=== PATIENT | female | born 1965 | race Caucasian/White ===

== ENCOUNTER 2023-02-21 10:02 | Outpatient (RCR) | payer MEDICARE, MEDICAID, SELFPAY | END 2023-03-15 13:24 | disposition home or self-care (01) | LOC: PT 10:02 | PROVIDERS: PCP Nurse Practitioner Family | DX: M54.31 Sciatica, right side (principal); M25.561 Pain in right knee; M25.562 Pain in left knee; G89.29 Other chronic pain; M48.061 Spinal stenosis, lumbar region without neurogenic claudication; M16.11 Unilateral primary osteoarthritis, right hip | CPT/HCPCS: 97110; 97140; 97162 ==

== ENCOUNTER 2024-11-21 14:33 | Outpatient (OUT) | payer MEDICAID, MEDICARE, SELFPAY ==
[2024-11-21 14:57] LABS: Basophils Absolute Auto 0.1 10^3/uL (0.0-0.1); Basophils Percent Auto 0.6 % (0.2-2.0); Eosinophils Absolute Auto 0.3 10^3/uL (0.0-0.7); Eosinophils Percent Auto 3.3 % (0.9-7.0); Hematocrit 38.1 % (36.0-48.0); Hemoglobin 12.1 g/dL (12.0-16.0); Immature Granulocytes Abs Auto 0.01 10^3/uL (0.00-0.03); Immature Granulocytes Pct Auto 0.1 % (0.0-0.5); Lymphocytes Percent Auto 33.5 % (20.5-60.0); Mean Corpuscular HGB Conc 31.8 g/dL (29.9-35.2); Mean Corpuscular Hemoglobin 27.7 pg (26.7-34.0); Mean Corpuscular Volume 87.2 fL (81.0-99.0); Mean Platelet Volume 9.2 fL (9.5-13.5); Monocytes Absolute Auto 0.7 10^3/uL (0.3-0.8); Monocytes Percent Auto 8.2 % (1.7-12.0); Neutrophils Absolute Auto 4.9 10^3/uL (1.4-6.5); Neutrophils Percent Auto 54.3 % (43.0-75.0); Platelet Count 272 10^3/uL (150-450); Red Blood Count 4.37 10^6/uL (4.20-5.40); Red Cell Distribution Width 14.4 % (11.0-15.0)
[2024-11-21 15:12] LABS: Estimated Average Glucose 151 mg/dL; Glycohemoglobin A1C 6.9 % (4.5-6.2)
[2024-11-21 15:36] LABS: Alanine Aminotransferase 19 U/L (14-59); Albumin Globulin Ratio 1.1; Albumin Level 3.9 g/dL (3.4-5.0); Alkaline Phosphatase 99 U/L (46-116); Anion Gap 11.4; Aspartate Amino Transferase 15 U/L (15-37); BUN Creatinine Ratio 12.5; Bilirubin Total 0.5 mg/dL (0.2-1.0); Calcium 9.3 mg/dL (8.5-10.1); Carbon Dioxide 29.8 mmol/L (21.0-32.0); Chloride 97 mmol/L (98-107); Estimated GFR (African America >60 (>=60 mL/min/1.73m^2); Estimated GFR (Non-African Ame >60 (>=60 mL/min/1.73m^2); Free T3 3.35 pg/mL (2.18-3.98); Globulin 3.4 g/dL; Glucose 97 mg/dL (74-106); Potassium 4.2 mmol/L (3.5-5.1); Sodium 134 mmol/L (136-145); Thyroid Stimulating Hormone 0.007 uIU/mL (0.358-3.740); Total Protein 7.3 g/dL (6.4-8.2)
[2024-11-22 08:09] LABS: Insulin 10.6 uIU/mL (2.6-24.9)
== END 2024-11-21 14:34 | disposition home or self-care (01) ==
PROVIDERS: PCP Nurse Practitioner Family; Visit Provider Nurse Practitioner Family
DX: Z00.00 Encounter for general adult medical examination without abnormal findings (principal); E78.5 Hyperlipidemia, unspecified; E11.9 Type 2 diabetes mellitus without complications; D64.9 Anemia, unspecified; E03.9 Hypothyroidism, unspecified; E55.9 Vitamin D deficiency, unspecified; Z79.899 Other long term (current) drug therapy
CPT/HCPCS: 36415; 80053; 80061; 82306; 83036; 83525; 83540; 84436; 84443; 84481; 85025

== ENCOUNTER 2025-01-29 11:26 | Outpatient (OUT) | payer MEDICARE, MEDICAID, SELFPAY ==
--- OUTSIDE RECORDS SUMMARY | 2013-09-15 16:00 | XMS_ITS | Encounter Summary ---
Author Organization [facility] Address [address] [place] [address] Care Team Providers Care Wind Field Manager Name Role Phone Marcelo Hinojosa MD Primary Care Provider [phone] Encounter Details Date Type Department Care Team (Late st Contact Info) Description 09/15/2013 3:00 PM EST Hospital Encounter [facility] Cardiac Rehab [address] [place] [id number] Sanya Byrnes MD [address] [phone] Marcelo Hinojosa MD [address] [place] [address] Social History Tobacco Use Types Packs/Day Years Used Date Smoking Tobacco: Every Day Cigarettes 0.3 33 Alcohol Use Standard Drinks/Week Comments No 0 (1 standard drink = 0.6 oz pur e alcohol) Comments Unknown Sex and Gender Information Value Date Recorded Sex Assigned at Not on file Legal Sex Female 12:23 PM EST Gender Identity Not on file Sexual Orientation Not on file documented as of this encounter Plan of Treatment Not on file documented as of this encounter Visit Diagnoses Not on filedocumented in this encounter Care Teams Wind Field Manager Relationship Specialty Start Date End Date Marcelo Hinojosa MD [address] [place] [address] PCP - General 09/10/13 documented as of this encounter
--- OUTSIDE RECORDS SUMMARY | 2013-10-15 15:00 | XMS_ITS | Encounter Summary ---
Author Organization [facility] Address [address] [place] [address] Care Team Providers Care Hammerer Helper Name Role Phone Marcelo Hinojosa MD Primary Care Provider [phone] Encounter Details Date Type Department Care Team (Late st Contact Info) Description 10/15/2013 3:00 PM EDT Hospital Encounter [facility] Cardiac Rehab [address] [place] [address] Sanya Byrnes MD [address] [phone] Marcelo Hinojosa MD [address] [place] [address] Social History Tobacco Use Types [...] on filedocumented in this encounter Care Teams Hammerer Helper Relationship Specialty Start Date End Date Marceol Hinojosa MD [address] [place] [address] PCP - General 09/10/13 documented as of this encounter
--- OUTSIDE RECORDS SUMMARY | 2017-08-30 11:00 | XMS_ITS | Continuity of Care Document ---
Author Organization [facility] Address [address] [place] [phone] Phone Care Team Providers Care Intermediate Project Manager Name Role Phone Hector Rojas DDS Unavailable Unavailable Allergies, Adverse Reactions, Alerts Substance Reaction Status Criticality Sulfa (Sulfonamide Antibiotics) Hives/Skin Rash Active No Information Medications Medication Instructions Dosage Effective Dates (start - stop) Status Comments lisinopril 5 mg tablet take 1 tablet by oral route every day 5 MG - Active Lopressor HCT 50 mg-25 mg tablet take 1 tablet by oral route every day - Active aspirin 325 mg tablet take 1 tablet by oral route every day 325 MG - Active Lipitor 80 mg tablet take 1 tablet by or al route every day 80 MG - Active Effexor XR 150 mg capsule,extended release take 1 capsule by oral route every day 150 MG - Active Effexor XR 75 mg capsule,extended release take 1 capsule by oral route every day with food 75 MG - Active Synthroid 112 mcg tablet take 1 tablet by oral route every day 112 MCG - Active Zantac 150 mg tablet take 1 tablet by or al route 2 times every day - Active Roxboro 10 mg-325 mg tablet take 1 tablet by oral route every 4 - 6 hours as needed for pain - Active tramadol 50 mg tablet take 1 tablet by oral route every 6 hours as needed 50 MG - Active gabapentin 100 mg capsule take 3 capsule by oral route every day at bedtime 300 MG - Active Procedures Procedure Date Oral Hygiene Instruction Limited Oral Eval Advance Directives Directive Yes / No Effective Date File Name No Information Encounters Encounter Description Practice Location Reason(s) For Visit Diagnoses Date Provider Providers Copied on Encounter [facility], [address] [place] [address], [id number], tel:[phone] Dental Clinic dental Emergency (chief complaint)d ental Emergency (chief complaint) Encounter for screening for dental disorder Crystal Young. [address], [place], [id number], . tel:[phone] Family History Family Member Type Diagnosis Age At Onset Mother Problem (finding) malignant neoplasm of p ancreas Father Problem (finding) Payers Payer name Insurance type Covered constitution party ID Janel burnham(s) D [employer] [id number] D Medicaid Wrap - [employer] [facility] [id number] Social History Type Description Quantity Date Captured Comments Alcohol Use Details Unknown Caffeine Use Details Unknown Tobacco Use Status Moderate cigarette smoker (10-19 cigs/day) Smoking Status Heavy tobacco smoker Smoking Tobacco Use Details Cigarette: Age Started: 14 Cigarette: 10 Cigarettes per day Sex Female Sexual Orientation Straight or heterosexual Gender Identity Female Vital Signs Date / Time: Height Weight BMI Pulse Rate Blood Pressure Temperature Respiratory Rate Body Surface Area Head Circumference Head Circ. Percentile Wt./Romario. Percentile BMI percentile Pulse Ox Inhaled Ox 3:48 PM 70 /min 126/78 mm[Hg] Chief Complaint And Reason For Visit From encounter dated '08/30/2017 15:00'. dental Emergency (chief complaint) dental Emergency (chief complaint). Description: dental emergency, trim bone Reason For Referral Reason For Referral No Information Plan Of Treatment Date Type Action Status Goal Tobacco cessation counseling completed History Of Present Illness Encounter Date Complaint History Of Prese nt Illness dental Emergency dental emergenc y, trim bone dental Emergency Functional Status Date Functional Assessmen t No Information Instructions Date Instruction Additional Infor mation No Information Assessments Type Assessment Date assessment Encounter for screening for dent al disorder Patient Care Teams Name Effective Dates (start - stop) Status Members No Information
--- OUTSIDE RECORDS SUMMARY | 2024-11-28 11:53 | XMS_ITS ---
Author Organization [facility] [place] Address [address] [place] [address] Care Team Providers Care Denture Waxer Name Role Phone Kylie Dubose Primary Care Provider [phone] REASON FOR VISIT Thyroid Dose Medications Medication SIG (Take, Route, Frequency, Duration) Notes Start Date End Date Status Liothyronine Sodium 5 MCG 1 tablet on an empty stomach Once a day for 90 days Active Encounters Encounter Location Date Provider Diagnosis [facility] [address] [place] [address] 11/28/2024 Kylie Dubose Hypothyroidism, unspecified E03.9 Assessments Encounter Date Diagnosis (ICD Code) Assessment Notes Treatment Notes Treatment Clinical Notes Section Notes 11/28/2024 Hypothyroidism, unspecified (ICD-10 - E03.9) Plan Of Treatment Medication Medication Name Sig Start Date Stop Date Notes Liothyronine Sodium 5 MCG 1 tablet on an empty stomach Once a day for 90 days Pending Test Test Name Order Date THYROID PANEL (T4/TSH/FREE T3) Progress Notes * Lorri WILKINSON ADOB: 3 (59 yo F)Acc No.[id number]:11/28/2024 Patient: Pao BLAKENATALIELorri :1965 A ge:59 Y S ex:Female Address:[address] [place] [phone] * Refills Refill Liothyronine Sodium Tablet, 5 MCG, 90 Tablet, 1 tablet on an empty stomach, Once a day, 90 days, Refills=3 Subjective: * Chief Complaints: * T hyroid Dose * Medical History: * Surgical History: * Hospitalization/Major Diagno stic Procedure: * Medications: Objective: * Vitals: * Physical Examination: Assessment: * Assessment: 1. H ypothyroidism, unspecified - E03.9 (Primary) Plan: * Treatment: 2. O thers Refill Liothyronine Sodium Tablet, 5 MCG, 1 tablet on an empty stomach, Once a day, 90 days, 90 Tablet, Refills 3. * Procedure Codes: * true * Date: Generated for Vaishali richmond/Anahi/eTmieshasmitting on: 0 01/29/2025 11:32 AM EDT
--- OUTSIDE RECORDS SUMMARY | 2025-01-09 03:49 | XMS_ITS ---
Author Organization [facility] [place] Address [address] [place] [address] Care Team Providers Care Parachute Marker Name Role Phone Kylie Dubose Primary Care Provider REASON FOR VISIT refill Medications Medication SIG (Take, Route, Frequency, Duration) Notes Start Date End Date Status Ozempic (0.25 or 0.5 MG/DOSE) 2 MG/3ML DIAL 0.25 MG AND INJECT UNDER THE SKIN WEEKLY for 28 Active Encounters Encounter Location Date Provider Diagnosis [address] [address] 01/09/2025 Kylie Dubose Diabetes mellitus E11.9 Assessments Encounter Date Diagnosis (ICD Code) Assessment Notes Treatment Notes Treatment Clinical Notes Section Notes 01/09/2025 Diabetes mellitus (ICD-10 - E11.9) Plan Of Treatment Medication Medication Name Sig Start Date Stop Date Notes Ozempic (0.25 or 0.5 MG/DOSE ) 2 MG/3ML DIAL 0.25 MG AND INJECT UNDER THE SKIN WEEKLY for 28 Progress Notes * Lorri WILKINSON ADOB: [birth year] (59 yo F)Acc No.[id number]:01/09/2025 Patient: Pao FLORES Lorri Corral :1965 A ge:59 Y S ex:Female Address:[address] [place] [phone] * Refills Refill Ozempic (0.25 or 0.5 MG/DOSE) Solution Pen-injector, 2 MG/3ML, 3 Milliliter, DIAL 0.25 MG AND INJECT UNDER THE SKIN WEEKLY, 28, Refills=5 * true * Date: Generated for Vaishali richmond/Anahi/Octavio on: 0 01/29/2025 11:32 AM EDT
--- OUTSIDE RECORDS SUMMARY | 2025-01-13 07:20 | XMS_ITS ---
Author Organization [facility] [place] Address [address] [place] [address] Care Team Providers Care Treadle Cut Off Saw Operator Name Role Phone Kylie Dubose Primary Care Provider REASON FOR VISIT Ozempic Medications Medication SIG (Take, Route, Frequency, Duration) Notes Start Date End Date Status Ozempic (0.25 or 0.5 MG/DOSE) 2 MG/3ML DIAL 0.5 MG AND INJECT UNDER THE SKIN WEEKLY for 28 days call for next dose Active Encounters Encounter Location Date Provider Diagnosis [address] [address] 01/13/2025 Kylie Dubose Diabetes mellitus E11.9 Assessments Encounter Date Diagnosis (ICD Code) Assessment Notes Treatment Notes Treatment Clinical Notes Section Notes 01/13/2025 Diabetes mellitus (ICD-10 - E11.9) Plan Of Treatment Medication Medication Name Sig Start Date Stop Date Notes Ozempic (0.25 or 0.5 MG/DOSE) 2 MG/3ML DIAL 0.5 MG AND INJECT UNDER THE SKIN WEEKLY for 28 days call for next dose Progress Notes * Lorri WILKINSON ADOB: [birth year] (59 yo F)Acc No.[id number]:01/13/2025 Patient: Pao FLORES Lorri Corral :1965 A ge:59 Y S ex:Female Address:[address] [place] [id number] * Refills Refill Ozempic (0.25 or 0.5 MG/DOSE) Solution Pen-injector, 2 MG/3ML, 1, DIAL 0.5 MG AND INJECT UNDER THE SKIN WEEKLY, 28 days, Refills=1 Subjective: * Chief Complaints: * O zempic * Medical History: * Surgical History: * Hospitalization/Major Diagno stic Procedure: * Medications: Objective: * Vitals: * Physical Examination: Assessment: * Assessment: 1. D iabetes mellitus - E11.9 Plan: * Treatment: * Procedure Codes: * true * Date: Generated for Vaishali richmond/Anahi/Octavio on: 0 01/29/2025 11:32 AM EDT
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
--- OUTSIDE RECORDS SUMMARY | 2025-01-29 11:32 | XMS_ITS | Patient Health Record ---
Author Organization The [facility] [place] Address [address] [place] [address] Care Team Providers Care Cafeteria Monitor Name Role Phone GracyMarcieKylie Primary Care Provider Allergies Allergen (clinical drug ingredient) Drug/Non Drug Allergy documented on EMR Reaction Allergy Type Onset Date Status Non-steroidal anti-inflammatory agent (FN) NSAIDs nausea and vomiting Drug Allergy Active Results Component Value Reference Range Notes FREE T3 Reviewed date:11/24/2024 11:32:31 AM Interpretation: Performing Lab: Notes/Report: [facility] , Free T3 3.35 2.18-3.98 pg/mL Performing Lab: see note - [facility] LB INSULIN Reviewed date:11/24/2024 11:32:31 AM Interpretation: Performing Lab: Notes/Report: [facility] , Insulin 10.6 2.6-24.9 uIU/mL Performed at: - [facility] Freight Separator: Kapil Holm PhD, Phone: [phone] [address] [place], [place] [id number] Performing Lab: see note LC - [facility] LB IRON Reviewed date:11/24/2024 11:32:31 AM Interpretation: Performing Lab: Notes/Report: [facility] , Iron 56.0 50.0-170.0 ug/dL Performing Lab: see note - [facility] LB PROF 14(COMP METB) Reviewed date:11/24/2024 11:32:31 AM Interpretation: Performing Lab: Notes/Report: [facility] , Sodium 134 136-145 mmol/L Potassium 4.2 3.5-5.1 mmol/L Chloride 97 98-107 mmol/L Carbon Dioxide 29.8 21.0-32.0 mmol/L Anion Gap 11.4 Glucose 97 74-106 mg/dL Blood Urea Nitrogen 8.0 7.0-18.0 mg/dL Creatinine 0.64 0.55-1.02 mg/dL Estimated GFR ( Althea >60 >=60 mL/mi n/1.73m 2 Estimated GFR (Non- Renetta >60 >=60 mL/mi n/1.73m 2 BUN Creatinine Ratio 12.5 Calcium 9.3 8.5-10.1 mg/dL Bilirubin Total 0.5 0.2-1.0 mg/dL Aspartate Amino Transferase 15 15-37 U/L Alanine Aminotransferase 19 14-59 U/L Alkaline Phosphatase 99 46-116 U/L Total Protein 7.3 6.4-8.2 g/dL Albumin Level 3.9 3.4-5.0 g/dL Globulin 3.4 Albumin Globulin Ratio 1.1 Performing Lab: see note ML - [facility] LB T4 Reviewed date:11/24/2024 11:32:31 AM Interpretation: Performing Lab: Notes/Report: [facility] , T4 Thyroxine 9.00 4.80-13.90 ug/dL Performing Lab: see note ML - [facility] LB TSH Reviewed date:11/24/2024 11:32:31 AM Interpretation: Performing Lab: Notes/Report: [facility] , Thyroid Stimulating Hormone 0.007 0.358-3.740 u IU/mL Performing Lab: see note ML - [facility] LB VITAMIN D 25 [place] Reviewed date:11/24/2024 11:32:31 AM Interpretation: Performing Lab: Notes/Report: [facility] , Vitamin D 38.1 20-<30 ng/mL Vit D insufficient >100 ng/mL Potential Toxicity <20 ng/mL Vit D deficient 30-100 ng/mL Vit D sufficient Performing Lab: see note ML - [facility] LB GLYCOHEMOGLOBIN A1C Reviewed date:11/24/2024 11:32:31 AM Interpretation: Performing Lab: Notes/Report: [facility] , Glycohemoglobin A1C 6.9 4.5-6.2 % ACTION SUGGESTED > 7.0 ADA RECOMMENDED LIMIT 4.0 - 6.0 ADA THERAPEUTIC TARGET < 7.0 Estimated Average Glucose 151 Performing Lab: see note ML - [facility] LB CBC AUTO DIFF Reviewed date:11/24/2024 11:32:31 AM Interpretation: Performing Lab: Notes/Report: [facility] , White Blood Count 9.0 4.0-11.0 10 3/uL Red Blood Count 4.37 4.20-5.40 10 6/uL Hemoglobin 12.1 12.0-16.0 g/dL Hematocrit 38.1 36.0-48.0 % Mean Corpuscular Volume 87.2 81.0-99.0 fL Mean Corpuscular Hemoglobin 27.7 26.7-34.0 pg Mean Corpuscular HGB Conc 31.8 29.9-35.2 g/dL Red Cell Distribution Width 14.4 11.0-15.0 % Platelet Count 272 150-450 10 3/uL Mean Platelet Volume 9.2 9.5-13.5 fL Neutrophils Percent Auto 54.3 43.0-75.0 % Lymphocytes Percent Auto 33.5 20.5-60.0 % Monocytes Percent Auto 8.2 1.7-12.0 % Eosinophils Percent Auto 3.3 0.9-7.0 % Basophils Percent Auto 0.6 0.2-2.0 % Immature Granulocytes Pct Auto 0.1 0.0-0.5 % Neutrophils Absolute Auto 4.9 1.4-6.5 10 3/uL Lymphocytes Absolute Auto 3.0 1.2-3.8 10 3/uL Monocytes Absolute Auto 0.7 0.3-0.8 10 3/uL Eosinophils Absolute Auto 0.3 0.0-0.7 10 3/uL Basophils Absolute Auto 0.1 0.0-0.1 10 3/uL Immature Granulocytes Abs Auto 0.01 0.00-0.03 10 3/uL Performing Lab: see note ML - [facility] LB Reason For Referral No Information Medications Medication SIG (Take, Route, Frequency, Duration) Notes Start Date End Date Status Fluconazole 150 MG 1 tablet Orally once for 1 days 10/01/2023 Not-Taking DULoxetine HCl 60 MG Oral for 60 Days Active Losartan Potassium 25 MG 1 tablet Orally Once a day 11/25/2024 Active valACYclovir HCl 1 GM 1 tablet Orally TI D for 7 days 09/25/2023 Not-Taking Tylenol Arthritis Pain Active Blood Glucose Meter -- Use to test blood sugar Dx: Diabetes Type II (E11.9) daily for 1 days 04/09/2023 Active Metoprolol Tartrate 25 MG take 1 tablet by mouth twice a day Oral for 90 Days Active Nicoderm CQ 21 MG/24HR 1 patch to skin Transdermal Once a day for 30 days 08/31/2023 Active Atorvastatin Calcium 80 MG take 1 tablet by mouth at bedtime Oral for 90 Days Active metFORMIN HCl 1000 MG TAKE 1 TABLET BY MOUTH 2 TIMES A DAY WITH A MEAL for 90 Active busPIRone HCl 10 MG TAKE 2 TABLET BY MOUTH 2 TIMES A DAY for 30 days Active Mupirocin 2 % 1 application Externally Twice a day for 5 days 11/25/2024 Active HYDROcodone-Acetaminop hen 10-325 MG 1 tablet as needed Orally every 8 hrs 08/31/2023 Active Gabapentin 300 MG 1 capsule Orally every 8 hours for 30 days 08/31/2023 Active RA Aspirin EC 325 MG take 1 tablet by mouth once daily for 30 Active Omeprazole 40 MG take 1 capsule by mouth once daily 30 for 30 days Active Levothyroxine Sodium 200 MCG TAKE 1 TABLET BY MOUTH EVERY MORNING ON AN EMPTY STOMACH for 90 days Active traMADol HCl 50 MG 1 tablet as needed Orally Once a day 08/31/2023 Active Ozempic (0.25 or 0.5 MG/DOSE) 2 MG/3ML DIAL 0.5 MG AND INJECT UNDER THE SKIN WEEKLY for 28 days call for next dose Active Lancets 30G - Use to test blood sugar Dx: Diabetes Type II (E11.9) daily for 90 days 04/09/2023 Active Test Strips - Use with meter to test blood sugar Dx: Diabetes Type II (E11.9) daily for 90 days 04/09/2023 Active Liothyronine Sodium 5 MCG 1 tablet on an empty stomach Once a day for 90 days Active Sertraline HCl 50 MG TAKE 1 TABLET BY MOUTH DAILY for 90 Active Social History Tobacco Use: Social History Observation Description Date Details (start date - stop date) Current Smoker 07/23/1978 - NA Tobacco Use/Smoking Question Answer Notes Patient is a current smoker When did you start smoking? 07/23/1978 How often do you smoke cigarettes? some days, bu t not every day How many cigarettes a day do you smoke? 5 or les s How soon after you wake up d o you smoke your first cigarette? after 60 minutes Are you interested in quitting? Ready to quit Alcohol Screen (Audit-C) Question Answer Notes Did you have a drink contain ing alcohol in the past year? Yes How often did you have 6 or more drinks on one occasion in the past year? Never (0 point) How many drinks did you have on a typical day when you were drinking in the past year? 1 or 2 drinks (0 point) How often did you have a dri nk containing alcohol in the past year? Less than monthly (1 point) Points 1 Interpretation Negative Problems Problem Type SNOMED Code ICD Code Onset Dates Problem Status W/U Status Risk Notes Problem [id number] Hypothyroidism, unspecified (E03.9) Active confirmed Problem Anxiety (89877179) Anxiety (F41.9) Active confirmed Problem Smoker (F17.200) Active confirmed Problem Diabetes mellitus (68946416) Diabetes mellitus (E11.9) Active confirmed Vital Signs Blood pressure diastolic 78 mm Hg 11/25/2024 Height 66.5 in 11/25/2024 Blood pressure systolic 142 mm Hg 11/25/2024 Weight 188.8 lbs 11/25/2024 BMI 30.01 kg/m2 11/25/2024 Encounters Encounter Location Date Provider Diagnosis [address] [address] 10/27/2024 Kylie Dubose Diabetes mellitus E11.9 and Wellness examination Z00.00 [facility] [address] [place] [address] 10/29/2024 Kylie Dubose [facility] [address] [place] [address] 11/28/2024 Kylie Dubose Hypothyroidism, unspecified E03.9 [facility] [address] [place] [address] 01/09/2025 Kylie Dubose Diabetes mellitus E11.9 [facility] [address] [place] [address] 01/13/2025 Kylie Dubose Diabetes mellitus E11.[address] [address] 03/11/2024 Kylie Dubose [facility] [address] [facility] [place] [address] 03/21/2024 Kylie Dubose [facility] [address] [facility] [place] [address] 07/07/2024 Kylie Dubose [facility] [address] [facility] [place] [address] 09/25/2024 Kylie Gracy [facility] [address] [facility] [place] [address] 10/01/2024 Kylie Gracy [facility] [address] [facility] [place] [address] 10/27/2024 Kylie Gracy [facility] [address] [facility] [place] [address] 03/05/2024 Kylie Dubose [facility] [address] [facility] [place] [address] 11/25/2024 Kylie Dubose Hypothyroidism, unspecified E03.9 ; Diabetes mellitus E11.9 ; Anxiety F41.9 ; Smoker F17.200 ; Folliculitis L73.9 and Wellness examination Z00.00 Assessments Encounter Date Diagnosis (ICD Code) Assessment Notes Treatment Notes Treatment Clinical Notes Section Notes 10/27/2024 Diabetes mellitus (ICD-10 - E11.9) 11/25/2024 Hypothyroidism, unspecified (ICD-10 - E03.9) discuss medication doses with Dr Vahid jurado 11/25/2024 Diabetes mellitus (ICD-10 - E11.9) A1c 6.9 trial of Ozempic Patient educated on Diabetic diet... Reviewed Hypoglycemia / Hyperglycemia action plan: Instructed to call office if blood sugar above 350 or below 65 consecutively. Reviewed with patient the joint terminal attack controller effects of Diabetes Mellitus on the body and organs. Instructed patient to check feet daily, wear socks daily, wear proper fitting shoes, lotion feet at night with no lotion between toes, powder between toes. Follow-up with podiatry Q6M and PRN. No toenail clipping except by Podiatry. Please bring glucase meter and record to each appointment, Please feel free to call if you have questions or concerns about management or condition. Please call 1 week before medications are depleted for refills. If you are instructed to be fasting for procedure or testing, please call for dosing instructions. 11/28/2024 Hypothyroidism, unspecified (ICD-10 - E03.9) 01/09/2025 Diabetes mellitus (ICD-10 - E11.9) 01/13/2025 Diabetes mellitus (ICD-10 - E11.9) 11/25/2024 Anxiety (ICD-10 - F41.9) 10/27/2024 Wellness examination (ICD-10 - Z00.00) 11/25/2024 Smoker (ICD-10 - F17.200) 11/25/2024 Folliculitis (ICD-10 - L73.9) trial of mupirocin call office if worsening, can try oral abx derm referral sheet given if needed 11/25/2024 Wellness examination (ICD-10 - Z00.00) ROS done exam done encouraged mammogram and ct lungs labs reviewed cologuard ordered Plan Of Treatment Pending Test Test Name Order Date CMP (COMPLETE METABOLIC PANEL) 3 CMP (COMPLETE METABOLIC PANEL) 3 CMP (COMPLETE METABOLIC PANEL) 4 HEMOGLOBIN A1C (GLYCO) 11/30/2023 HEMOGLOBIN A1C (GLYCO) 10/27/2024 HEMOGLOBIN A1C (GLYCO) 12/04/2022 HEMOGLOBIN A1C (GLYCO) 11/07/2022 IRON, TOTAL 11/07/2022 IRON, TOTAL 12/04/2022 IRON, TOTAL 10/27/2024 IRON, TOTAL 11/30/2023 LIPID PANEL (CHOL/TRIG/HDL/LDL) 11/30/19 24 LIPID PANEL (CHOL/TRIG/HDL/LDL) 10/28/19 25 LIPID PANEL (CHOL/TRIG/HDL/LDL) 12/05/19 23 LIPID PANEL (CHOL/TRIG/HDL/LDL) 11/08/19 23 CBC WITH DIFF 11/07/2022 CBC WITH DIFF 12/04/2022 CBC WITH DIFF 11/30/2023 VITAMIN D, 25 LEVEL (TOTAL) 11/30/2023 VITAMIN D, 25 LEVEL (TOTAL) 10/27/2024 VITAMIN D, 25 LEVEL (TOTAL) 12/04/2022 Insulin Level 12/04/2022 Insulin Level 11/07/2022 Insulin Level 10/27/2024 Insulin Level 11/30/2023 STOOL OCCULT BLOOD 11/30/2023 STOOL OCCULT BLOOD 11/07/2022 STOOL OCCULT BLOOD 12/04/2022 THYROID PANEL (T4/TSH/FREE T3) 3 THYROID PANEL (T4/TSH/FREE T3) 3 THYROID PANEL (T4/TSH/FREE T3) 4 THYROID PANEL (T4/TSH/FREE T3) 5 THYROID PANEL (T4/TSH/FREE T3) 5 CT LUNG CANCER SCREENING 08/31/2023 CMP (COMP MET JARA) w/eGFR CKD-EPI 2024 CBC WITH DIFF 10/27/2024 Insurance Providers Payer Name Payer Address Payer Phone Subscriber Number Group Number Insured Name Patient Relationship to Insured Coverage Start Date Coverage End Date [facility] [employer]IC[employer] [address] [place] [address] [id number] Lorri Wilkinson Self - patient is the insured MEDICAID [place] [address] [facility] [address] [place], [place] [id number] Lorri Wilkinson Self - patient is the insured 3 Medical (General) History Medical History History ICD Code Diabetes mellitus E11.9 Anxiety F41.9 Bipolar disorder F31.9 Atherosclerosis of coronary artery I25.1 0 Depressed F32.9 Acid reflux K21.9 Dyslipidemia E78.5 Hypothyroid E03.9 Irritable bowel K58.9 Acute CA I21.3 Idiopathic neuropathy G60.9 Shingles B02.9 Squamous cell carcinoma, 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
--- OUTSIDE RECORDS SUMMARY | 2025-01-29 11:32 | XMS_ITS | Clinical Summary ---
Author Organization [facility] Address [address] [place] [address] Care Team Providers Care Chassis Mechanic Name Role Phone Marcelo Hinojosa MD Primary Care Provider [phone] Allergies Active Allergy Reactions Criticality Noted Date Comments Sulfa Antibiotics Hives 09/10/2013 Medications venlafaxine (EFFEXOR-XR) 150 MG XR capsule Take 150 mg by mouth daily. Active levothyroxine (SYNTHROID) 200 MCG tablet Take 250 mcg by mouth Daily. Active aspirin 81 MG tablet Take 81 mg by mouth daily. Active clopidogrel (PLAVIX) 75 MG tablet Take 75 mg by mouth daily. Active metoprolol (LOPRESSOR) 25 MG tablet Take 25 mg by mouth 2 times daily. Active lisinopril (PRINIVIL;ZESTRI L) 5 MG tablet Take 5 mg by mouth daily. Active atorvastatin (LIPITOR) 80 MG tablet Take 80 mg by mouth daily. Active ranitidine (ZANTAC) 150 MG tablet Take 150 mg by mouth 2 times daily. Active sucralfate (CARAFATE) 1 GM tablet Take 1 g by mouth 4 times daily. Active baclofen (LIORESAL) 10 MG tablet Take 10 mg by mouth 3 times daily. Active HYDROcodone-acet aminophen (VICODIN ES) 7.5-750 MG per tablet Take 1 tablet by mouth every 6 hours as needed for Pain. Active Family History Medical History Relation Name Comments Heart Attack Brother Relation Name Status Comments Brother Father Mother Social History Tobacco Use Types Packs/Day Years Used Date Smoking Tobacco: Every Day Cigarettes 0.3 33 Alcohol Use Standard Drinks/Week Comments No 0 (1 standard drink = 0.6 oz pur e alcohol) Comments Unknown Sex and Gender Information Value Date Recorded Sex Assigned at Not on file Legal Sex Female 12:23 PM EST Gender Identity Not on file Sexual Orientation Not on file Last Filed Vital Signs Vital Sign Reading Time Taken Comments Blood Pressure 100/60 09/10/2013 2:08 PM EST Pulse 72 09/10/2013 2:08 PM EST strong and regular Temperature - - Respiratory Rate 16 09/10/2013 2:08 PM EST clear Oxygen Saturation - - Inhaled Oxygen Concentration - - Weight 92.5 kg (204 lb) 09/10/2013 1:51 PM EST Height 167.6 cm (5' 6 ) 09/10/2013 1:51 PM EST Body Mass Index 32.93 09/10/2013 1:51 PM EST Plan of Treatment Not on file Care Teams Chassis Mechanic Relationship Specialty Start Date End Date Marcelo Hinojosa MD [address] [place] [address] PCP - General 09/10/13
--- OUTSIDE RECORDS SUMMARY | 2025-01-29 11:33 | XMS_ITS | Encounter Summary ---
Author Organization [employer] Address [id number] [address] [place] [address] Care Team Providers Care Supervisor Metal Fabricating Name Role Phone Kylie Dubose APRN-CAKE KNOCKER Primary Care Provider Reason for Visit * Reason Comments Med Refill Encounter Details Date Type Department Care Team (Late st Contact Info) Description 12/28/2022 Refill [facility] [address] [place] [address] Ly Ngo, PA-C [address] [facility] [address] [place] [address] Post zoster neuralgia Social History Tobacco Use Types Packs/Day Years Used Date Smoking Tobacco: Every Day Smokeless Tobacco: Never Alcohol Use Standard Drinks/Week Comments Not Currently 0 (1 standard drink = 0.6 oz pur e alcohol) PHQ-2 Answer Date Recorded Total Score 0 08/27/2019 Childcare Answer Date Recorded Childcare Unknown 01/01/2019 Employment Answer Date Recorded Employment Unknown 01/01/2019 Purpose - Life Answer Date Recorded Purpose and direction in life Unknown Comments Unknown Sex and Gender Information Value Date Recorded Sex Assigned at Not on file Legal Sex Female 11:27 AM EDT Gender Identity Not on file Sexual Orientation Not on file documented as of this encounter Plan of Treatment Not on file documented as of this encounter Visit Diagnoses Diagnosis 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
--- OUTSIDE RECORDS SUMMARY | 2025-01-29 11:33 | XMS_ITS | Encounter Summary ---
Author Organization [employer] Address [id number] [address] [place] [address] Care Team Providers Care District Operations Manager Name Role Phone Kylie Dubose APRN-MEDICAL CARE ADMINISTRATOR Primary Care Provider Reason for Visit * Reason Comments Med Refill Encounter Details Date Type Department Care Team (Late st Contact Info) Description 11/09/2022 Refill [facility] [address] [place] [address] Ly Ngo, PA-C [address] [facility] [address] [place] [address] Post zoster neuralgia Social History Tobacco Use [...] documented as of this encounter Care Teams District Operations Manager Relationship Specialty Start Date End Date Kylie Dubose, BENCH BORING MACHINE OPERATOR-MEDICAL CARE ADMINISTRATOR [address] [place] [address] PCP - General Family Medicine 08/27/19 documented as of this encounter
--- OUTSIDE RECORDS SUMMARY | 2025-01-29 11:33 | XMS_ITS | Clinical Summary ---
Author Organization [facility] Address [address] [place] [address] Care Team Providers Care Solidworks Drafter Name Role Phone Unavailable Primary Care Provider Unavailabl e Social History Tobacco Use Types Packs/Day Years Used Date Smoking Tobacco: Never Assessed Comments Unknown Sex and Gender Information Value Date Recorded Sex Assigned at Not on file Legal Sex Female 6:38 PM EDT Gender Identity Not on file Sexual Orientation Not on file Last Filed Vital Signs Vital Sign Reading Time Taken Comments Blood Pressure 138/76 07/30/2019 12:00 PM EST Pulse - - Temperature - - Respiratory Rate - - Oxygen Saturation - - Inhaled Oxygen Concentration - - Weight 82.1 kg (181 lb) 07/30/2019 12:00 PM EST Height 170.2 cm (5' 7 ) 07/30/2019 12:00 PM EST Body Mass Index 28.35 07/30/2019 12:00 PM EST Plan of Treatment Not on file
--- OUTSIDE RECORDS SUMMARY | 2025-01-29 11:33 | XMS_ITS | Clinical Summary ---
Author Organization [employer] [facility] Address [id number] [address] [place] [address] Care Team Providers Care Civil Engineering Draftsperson Name Role Phone Kylie Dubose HAND HEEL SEAT FITTER-[employer] AND HUMANITIES CHAIR Primary Care Provider Allergies Active Allergy Reactions Criticality Noted Date Comments Celecoxib 08/27/2019 HEART ATTACK Folic Acid 08/27/2019 Deplin; Blood sugar increased Sulfa (Sulfonamide Antibiotics) Hives 09/10/2013 Medications acetaminophen (TYLENOL) 500 mg tablet Take 1 tablet by mouth. Active aspirin 325 mg tablet Take 325 mg by mouth. 5 Active cyclobenzaprine (FLEXERIL) 10 mg tablet Take 10 mg by mouth. 0 Active diclofenac sodium (VOLTAREN) 1 % gel APPLY 2 GRAMS ON SKIN TOPICALLY FOUR TIMES A DAY NEEDED 9 Active HYDROcodone-magda taminophen (ZOLVIT) 10-300 mg/15 mL solution Take 1 tablet by mouth. Take qid prn Active atorvastatin (LIPITOR) 80 mg tablet Take 80 mg by mouth. 5 Active cholecalciferol , vitamin D3, 2,000 units tablet Take by mouth. 5 Active folic acid (FOLVITE) 800 MCG tablet Take 800 mcg by mouth. 5 Active furosemide (LASIX) 20 mg tablet prn 7 Active levothyroxine (SYNTHROID, LEVOTHROID) 200 MCG tablet Take 250 mcg by mouth. Active liothyronine (CYTOMEL) 5 MCG tablet Take 10 mcg by mouth daily. 0 Active lisinopril (PRINIVIL,ZESTR IL) 5 mg tablet Take 5 mg by mouth. 5 Active magnesium oxide 500 mg tablet Take 500 mg by mouth. 5 Active metFORMIN (GLUCOPHAGE) 1000 mg tablet 0 Active metoprolol tartrate (LOPRESSOR) 25 mg tablet Take 25 mg by mouth. 5 Active nitroglycerin (NITROSTAT) 0.4 MG SL tablet Prn for chest pain 7 Active omega-3 acid ethyl esters (LOVAZA) 1 gram capsule Take 1,000 mg by mouth. 5 Active omeprazole (PriLOSEC) 40 mg capsule 0 Active potassium chloride (K-DUR) 10 MEQ CR tablet take 1 tablet by mouth once daily WHEN TAKING LASIX 8 Active JANUVIA 100 mg tablet 0 Active ubidecarenone (COENZYME Q10) 50 mg tablet Take 200 mg by mouth. 9 Active venlafaxine XR (EFFEXOR-XR) 75 mg 24 hr capsule Take 75 mg by mouth. 5 Active venlafaxine XR (EFFEXOR-XR) 150 mg 24 hr capsule 9 Active B-complex with vitamin C tablet Take 1 tablet by mouth daily. 30 tablet 3 0 Active nystatin (MYCOSTATIN) 100,000 unit/mL suspension Take 5 mL (500,000 Units total) by mouth 4 (four) times a day. 200 mL 0 Active zinc gluconate 50 mg tablet TAKE ONE TABLET BY MOUTH DAILY 20 tablet 2 0 Active gabapentin (NEURONTIN) 600 mg tabletIndicatio ns:Post zoster neuralgia Take 1 tablet (600 mg total) by mouth in the morning and 1 tablet (600 mg total) at noon and 1 tablet (600 mg total) before bedtime. 90 tablet 5 2 Active Active Problems No known active problems Social History Tobacco Use Types Packs/Day Years [...] Sign Reading Time Taken Comments Blood Pressure 116/60 08/27/2019 3:25 PM EST Pulse - - Temperature - - Respiratory Rate - - Oxygen Saturation - - Inhaled Oxygen Concentration - - Weight 85.7 kg (189 lb) 08/27/2019 3:25 PM EST Height 170.2 cm (5' 7 ) 08/27/2019 3:25 PM EST Body Mass Index 29.6 08/27/2019 3:25 PM EST Plan of Treatment Health Maintenance Due Date Last Done Comments Depression Screening 1975 Tobacco Screening 1975 Adult BMI Screening 1981 DTaP,Tdap and Td Vaccines (1 - Tdap) 1982 Pap Smear 1984 Zoster (Shingles) Vaccine (1 of 2) 2013 Influenza Vaccine 03/23/2025 Medical Devices Not on file Insurance Care Teams Civil Engineering Draftsperson Relationship Specialty Start Date End Date Kylie Dubose APRN-SHARONA [address] [facility] [place] [address] PCP - General Family Medicine 08/27/19
--- OUTSIDE RECORDS SUMMARY | 2025-01-29 11:33 | XMS_ITS | Clinical Summary ---
Author Organization [facility] Address [address] [place] [place] [address] Care Team Providers Care Contact Lens Fitter Name Role Phone Christian Redding MD Primary Care Provider [phone] Allergies Active Allergy Reactions Criticality Noted Date Comments Celecoxib HEART ATTACK Duloxetine Hcl Pain,Aggressive Behavior 05/05/2021 Folic Acid Deplin; Blood sugar increased Lisinopril Cough 10/23/2024 Sulfa Antibiotics Hives Medications aspirin 325 MG Tab Take 1 tablet by mouth daily. 03/16/20 15 Active Folic Acid 800 MCG Tab Take 1 tablet by mouth daily. 03/16/20 15 Active atorvastatin 80 MG tablet Take 1 tablet by mouth daily. (dr. Goss) 03/16/20 15 Active metoprolol 25 MG tab regular release Take 1 tablet by mouth 2 times daily. 03/16/20 15 Active Cholecalciferol (VITAMIN D3) 2000 units Tab Take by mouth 2 times daily. As directed 03/16/20 15 Active furOSEmide 20 MG Tab tablet 0 06/28/20 17 Active nitroGLYCERIN 0.4 MG tablet SL 1 06/13/20 17 Active potassium chloride 10 MEQ Tab CR tablet ER take 1 tablet by mouth once daily WHEN TAKING LASIX 0 07/25/19 18 Active Acetaminophen (TYLENOL ARTHRITIS PAIN PO) Take 1 tablet by mouth As directed as needed. Active liothyronine 5 MCG Tab Take 2 tablets by mouth daily. 1 06/06/20 18 Active omeprazole [address] capsule Take 1 capsule by mouth daily. Active metFORMIN 1000 MG tablet Take 1 tablet by mouth 2 times daily with meals. Active cyanocobalamin 1000 MCG tablet Take by mouth. Active sertraline 50 MG tablet Take 1 tablet by mouth daily. Active levothyroxine 200 MCG tablet Take 1 tablet by mouth daily. Active Icosapent Ethyl 1 g capsule Take 1 capsule by mouth 2 times daily. Usually takes once daily 10/28/19 24 Active busPIRone 15 MG tabletIndication s:Generalized anxiety disorder Take 1 tablet by mouth 2 times daily. 60 tablet 3 11/05/19 24 Active Magnesium Oxide -Mg Supplement 500 MG tabletIndication s:Spasm take 1 tablet by mouth every night at bedtime 90 tablet 3 04/21/20 24 Active Cyclobenzaprine 10 MG tabletIndication s:Right sided sciatica,Spasm,C hronic midline low back pain without sciatica Take 1 tablet by mouth at bedtime. 90 tablet 1 04/28/20 24 Active DULoxetine [address] Particles capsule DRIndications:Ch ronic pain of both knees,Other chronic pain TAKE 1 CAPSULE BY MOUTH DAILY 90 capsule 2 07/29/19 25 Active hydroCODone-acet aminophen 10-325 MG tabletIndication s:Chronic pain syndrome,Spinal stenosis of lumbar region, unspecified whether neurogenic claudication present,Chronic pain of both knees,Chronic midline low back pain with right-sided sciatica 1-2 tablet every 8 hours as needed for pain 90 tablet 08/28/19 25 Active hydroCODone-acet aminophen 10-325 MG tabletIndication s:Chronic pain syndrome,Spinal stenosis of lumbar region, unspecified whether neurogenic claudication present,Chronic pain of both knees,Chronic midline low back pain with right-sided sciatica 1-2 tablet every 8 hours as needed for pain 90 tablet 09/28/19 25 Active Losartan 25 MG tablet Take 1 tablet by mouth daily. Active Gabapentin 300 MG capsuleIndicatio ns:Right sided sciatica,Spinal stenosis of lumbar region, unspecified whether neurogenic claudication present Take 1 cap by mouth daily at bedtime and twice a day as needed for sharp shooting or burning pain 270 capsule 1 10/24/19 25 026 Active traMADol 50 MG tabletIndication s:Right sided sciatica,Spinal stenosis of lumbar region, unspecified whether neurogenic claudication present TAKE ONE TO TWO TABLETS BY MOUTH EVERY 6 HOURS NEEDED FOR PAIN 180 tablet 3 10/24/19 25 025 Active Coenzyme Q-10 100 MG capsuleIndicatio ns:Chronic pain of both knees,Other chronic pain,Atheroscler osis of coronary artery of [place] heart without angina pectoris, unspecified vessel or lesion type Take 1 capsule by mouth daily. 90 capsule 3 10/24/19 25 Active naloxone 4 MG/0.1ML 1 spray by Nasal route once for 1 dose. [place] into the nose as directed. Call 911. If no response in 2 minutes use a new nasal spray in other nostril. Repeat until help arrives. 1 Each 10/24/19 25 Active Additional Information Patient not taking.Reported on 01/22/2025 OneTouch Ultra Test Strip strip 10/28/19 25 Active Lancets (OneTouch Delica Plus [id number]) Misc 10/28/19 25 Active Ozempic, 0.25 or 0.5 MG/DOSE, 2 MG/3ML Solution Pen-injector DIAL 0.5 MG AND INJECT UNDER THE SKIN WEEKLY for 28 days Active hydroCODone-acet aminophen 10-325 MG tabletIndication s:Chronic pain syndrome,Chronic midline low back pain with right-sided sciatica,Spinal stenosis of lumbar region, unspecified whether neurogenic claudication present,Chronic pain of both knees 1-2 tablet every 8 hours as needed for pain 90 tablet 01/23/20 25 025 Active hydroCODone-acet aminophen 10-325 MG tabletIndication s:Chronic pain syndrome,Chronic midline low back pain with right-sided sciatica,Spinal stenosis of lumbar region, unspecified whether neurogenic claudication present,Chronic pain of both knees 1-2 tablet every 8 hours as needed for pain 90 tablet 02/22/20 25 025 Active hydroCODone-acet aminophen 10-325 MG tabletIndication s:Chronic pain syndrome,Chronic midline low back pain with right-sided sciatica,Spinal stenosis of lumbar region, unspecified whether neurogenic claudication present,Chronic pain of both knees 1-2 tablet every 8 hours as needed for pain 90 tablet 03/23/20 25 025 Active hydroCODone-acet aminophen 10-325 MG tabletIndication s:Spinal stenosis of lumbar region, unspecified whether neurogenic claudication present,Chronic pain syndrome,Chronic pain of both knees,Chronic midline low back pain with right-sided sciatica 1-2 tablet every 8 hours as needed for pain 90 tablet 12/23/19 25 025 Discontin ued(Reord er) Active Problems Problem Noted Date Diagnosed Date High risk medication use 07/29/2024 Right sided sciatica 05/05/2021 Disorder of the skin and subcutaneous tissue, un specified 02/10/2020 Muscle spasms of both lower extremities 03/06/20 19 Assessment & Plan (08/31/2020 10:48 AM EST): chronic- stable Gastro-esophageal reflux disease without esophag itis 08/06/2018 Mixed hyperlipidemia 08/06/2018 Acute bronchitis, unspecified 08/06/2018 Essential (primary) hypertension 08/06/2018 Type 2 diabetes mellitus wit hout complication, without long-term current use of insulin 07/30/2018 Acquired hypothyroidism 04/18/2018 Chronic left shoulder pain 12/13/2017 Acute pain of left shoulder 11/29/2017 Assessment & Plan (01/31/2018 11:45 AM EDT): Continued pain and weakness despite PT, still with audible clicking with ROM. Assessment & Plan (11/29/2017 10:03 AM EDT): New onset- No known injury. Cracking with movement. Other chronic pain 11/09/2017 Assessment & Plan (05/01/2019 9:26 AM EDT): Patient is functional with continuation of chronic pain meds. Appropriate to continue. Encouraged to use meds only when needed to minimize tolerance and maximize effect when truly needed. Assessment & Plan (02/06/2019 9:44 AM EDT): Patient is functional with continuation of chronic pain meds. Appropriate to continue. Encouraged to use meds only when needed to minimize tolerance and maximize effect when truly needed. Cigarette nicotine dependence without complicati on 08/02/2017 Assessment & Plan (01/22/2025 8:58 AM EDT): We discussed the concept of smoking cessation, and how continued use we'll continue to worsen not only of the lungs but the vascular system making it increasingly difficult to get air, to get oxygen, to breathe off the gases of respiration and living. Healing will be increasingly difficult. Nourishing all tissues of the body becomes increasingly difficult and parts will due to lack of nourishment and oxygen. Assessment & Plan (10/23/2024 10:44 AM EDT): We discussed the concept of smoking cessation, and how continued use we'll continue to worsen not only of the lungs but the vascular system making it increasingly difficult to get air, to get oxygen, to breathe off the gases of respiration and living. Healing will be increasingly difficult. Nourishing all tissues of the body becomes increasingly difficult and parts will due to lack of nourishment and oxygen. Assessment & Plan (07/29/2024 12:25 PM EST): We discussed the concept of smoking cessation, and how continued use we'll continue to worsen not only of the lungs but the vascular system making it increasingly difficult to get air, to get oxygen, to breathe off the gases of respiration and living. Healing will be increasingly difficult. Nourishing all tissues of the body becomes increasingly difficult and parts will due to lack of nourishment and oxygen. Assessment & Plan (04/28/2024 10:32 AM EDT): We discussed the concept of smoking cessation, and how continued use we'll continue to worsen not only of the lungs but the vascular system making it increasingly difficult to get air, to get oxygen, to breathe off the gases of respiration and living. Healing will be increasingly difficult. Nourishing all tissues of the body becomes increasingly difficult and parts will due to lack of nourishment and oxygen. Assessment & Plan (01/31/2024 10:02 AM EDT): We discussed the concept of smoking cessation, and how continued use we'll continue to worsen not only of the lungs but the vascular system making it increasingly difficult to get air, to get oxygen, to breathe off the gases of respiration and living. Healing will be increasingly difficult. Nourishing all tissues of the body becomes increasingly difficult and parts will due to lack of nourishment and oxygen. Assessment & Plan (11/05/2023 10:46 AM EDT): Chronic- We discussed the concept of smoking cessation, and how continued use we'll continue to worsen not only of the lungs but the vascular system making it increasingly difficult to get air, to get oxygen, to breathe off the gases of respiration and living. Healing will be increasingly difficult. Nourishing all tissues of the body becomes increasingly difficult and parts will due to lack of nourishment and oxygen. Assessment & Plan (03/16/2022 10:02 AM EDT): We discussed the concept of smoking cessation, and how continued use we'll continue to worsen not only of the lungs but the vascular system making it increasingly difficult to get air, to get oxygen, to breathe off the gases of respiration and living. Healing will be increasingly difficult. Nourishing all tissues of the body becomes increasingly difficult and parts will due to lack of nourishment and oxygen. Assessment & Plan (05/05/2021 10:49 AM EDT): We discussed the concept of smoking cessation, and how continued use we'll continue to worsen not only of the lungs but the vascular system making it increasingly difficult to get air, to get oxygen, to breathe off the gases of respiration and living. Healing will be increasingly difficult. Nourishing all tissues of the body becomes increasingly difficult and parts will due to lack of nourishment and oxygen. Assessment & Plan (12/16/2020 8:41 AM EDT): We discussed the concept of smoking cessation, and how continued use we'll continue to worsen not only of the lungs but the vascular system making it increasingly difficult to get air, to get oxygen, to breathe off the gases of respiration and living. Healing will be increasingly difficult. Nourishing all tissues of the body becomes increasingly difficult and parts will due to lack of nourishment and oxygen. Assessment & Plan (08/31/2020 10:47 AM EST): We discussed the concept of smoking cessation, and how continued use we'll continue to worsen not only of the lungs but the vascular system making it increasingly difficult to get air, to get oxygen, to breathe off the gases of respiration and living. Healing will be increasingly difficult. Nourishing all tissues of the body becomes increasingly difficult and parts will due to lack of nourishment and oxygen. Assessment & Plan (05/27/2020 9:47 AM EST): We discussed the concept of smoking cessation, and how continued use we'll continue to worsen not only of the lungs but the vascular system making it increasingly difficult to get air, to get oxygen, to breathe off the gases of respiration and living. Healing will be increasingly difficult. Nourishing all tissues of the body becomes increasingly difficult and parts will due to lack of nourishment and oxygen. Assessment & Plan (04/22/2020 11:20 AM EDT): We discussed the concept of smoking cessation, and how continued use we'll continue to worsen not only of the lungs but the vascular system making it increasingly difficult to get air, to get oxygen, to breathe off the gases of respiration and living. Healing will be increasingly difficult. Nourishing all tissues of the body becomes increasingly difficult and parts will due to lack of nourishment and oxygen. Assessment & Plan (01/08/2020 10:04 AM EDT): We discussed the concept of smoking cessation, and how continued use we'll continue to worsen not only of the lungs but the vascular system making it increasingly difficult to get air, to get oxygen, to breathe off the gases of respiration and living. Healing will be increasingly difficult. Nourishing all tissues of the body becomes increasingly difficult and parts will due to lack of nourishment and oxygen. Assessment & Plan (11/06/2019 9:24 AM EDT): We discussed the concept of smoking cessation, and how continued use we'll continue to worsen not only of the lungs but the vascular system making it increasingly difficult to get air, to get oxygen, to breathe off the gases of respiration and living. Healing will be increasingly difficult. Nourishing all tissues of the body becomes increasingly difficult and parts will due to lack of nourishment and oxygen. Assessment & Plan (10/09/2019 9:39 AM EDT): We discussed the concept of smoking cessation, and how continued use we'll continue to worsen not only of the lungs but the vascular system making it increasingly difficult to get air, to get oxygen, to breathe off the gases of respiration and living. Healing will be increasingly difficult. Nourishing all tissues of the body becomes increasingly difficult and parts will due to lack of nourishment and oxygen. Assessment & Plan (08/21/2019 9:19 AM EST): We discussed the concept of smoking cessation, and how continued use we'll continue to worsen not only of the lungs but the vascular system making it increasingly difficult to get air, to get oxygen, to breathe off the gases of respiration and living. Healing will be increasingly difficult. Nourishing all tissues of the body becomes increasingly difficult and parts will due to lack of nourishment and oxygen. Assessment & Plan (07/25/2019 9:15 AM EST): We discussed the concept of smoking cessation, and how continued use we'll continue to worsen not only of the lungs but the vascular system making it increasingly difficult to get air, to get oxygen, to breathe off the gases of respiration and living. Healing will be increasingly difficult. Nourishing all tissues of the body becomes increasingly difficult and parts will due to lack of nourishment and oxygen. Assessment & Plan (05/29/2019 10:26 AM EST): We discussed the concept of smoking cessation, and how continued use we'll continue to worsen not only of the lungs but the vascular system making it increasingly difficult to get air, to get oxygen, to breathe off the gases of respiration and living. Healing will be increasingly difficult. Nourishing all tissues of the body becomes increasingly difficult and parts will due to lack of nourishment and oxygen. Assessment & Plan (05/01/2019 9:25 AM EDT): We discussed the concept of smoking cessation, and how continued use we'll continue to worsen not only of the lungs but the vascular system making it increasingly difficult to get air, to get oxygen, to breathe off the gases of respiration and living. Healing will be increasingly difficult. Nourishing all tissues of the body becomes increasingly difficult and parts will due to lack of nourishment and oxygen. Assessment & Plan (04/02/2019 8:50 PM EDT): We discussed the concept of smoking cessation, and how continued use we'll continue to worsen not only of the lungs but the vascular system making it increasingly difficult to get air, to get oxygen, to breathe off the gases of respiration and living. Healing will be increasingly difficult. Nourishing all tissues of the body becomes increasingly difficult and parts will due to lack of nourishment and oxygen. Assessment & Plan (03/06/2019 9:45 AM EDT): We discussed the concept of smoking cessation, and how continued use we'll continue to worsen not only of the lungs but the vascular system making it increasingly difficult to get air, to get oxygen, to breathe off the gases of respiration and living. Healing will be increasingly difficult. Nourishing all tissues of the body becomes increasingly difficult and parts will due to lack of nourishment and oxygen. Assessment & Plan (02/06/2019 9:44 AM EDT): We discussed the concept of smoking cessation, and how continued use we'll continue to worsen not only of the lungs but the vascular system making it increasingly difficult to get air, to get oxygen, to breathe off the gases of respiration and living. Healing will be increasingly difficult. Nourishing all tissues of the body becomes increasingly difficult and parts will due to lack of nourishment and oxygen. Assessment & Plan (01/09/2019 10:14 AM EDT): We discussed the concept of smoking cessation, and how continued use we'll continue to worsen not only of the lungs but the vascular system making it increasingly difficult to get air, to get oxygen, to breathe off the gases of respiration and living. Healing will be increasingly difficult. Nourishing all tissues of the body becomes increasingly difficult and parts will due to lack of nourishment and oxygen. Assessment & Plan (12/12/2018 10:11 AM EDT): We discussed the concept of smoking cessation, and how continued use we'll continue to worsen not only of the lungs but the vascular system making it increasingly difficult to get air, to get oxygen, to breathe off the gases of respiration and living. Healing will be increasingly difficult. Nourishing all tissues of the body becomes increasingly difficult and parts will due to lack of nourishment and oxygen. Assessment & Plan (10/24/2018 11:21 AM EDT): We discussed the concept of smoking cessation, and how continued use we'll continue to worsen not only of the lungs but the vascular system making it increasingly difficult to get air, to get oxygen, to breathe off the gases of respiration and living. Healing will be increasingly difficult. Nourishing all tissues of the body becomes increasingly difficult and parts will due to lack of nourishment and oxygen. Assessment & Plan (08/29/2018 10:05 AM EST): We discussed the concept of smoking cessation, and how continued use we'll continue to worsen not only of the lungs but the vascular system making it increasingly difficult to get air, to get oxygen, to breathe off the gases of respiration and living. Healing will be increasingly difficult. Nourishing all tissues of the body becomes increasingly difficult and parts will due to lack of nourishment and oxygen. Assessment & Plan (05/30/2018 11:34 AM EST): We discussed the concept of smoking cessation, and how continued use we'll continue to worsen not only of the lungs but the vascular system making it increasingly difficult to get air, to get oxygen, to breathe off the gases of respiration and living. Healing will be increasingly difficult. Nourishing all tissues of the body becomes increasingly difficult and parts will due to lack of nourishment and oxygen. Assessment & Plan (04/04/2018 11:07 AM EDT): We discussed the concept of smoking cessation, and how continued use we'll continue to worsen not only of the lungs but the vascular system making it increasingly difficult to get air, to get oxygen, to breathe off the gases of respiration and living. Healing will be increasingly difficult. Nourishing all tissues of the body becomes increasingly difficult and parts will due to lack of nourishment and oxygen. Assessment & Plan (01/31/2018 11:41 AM EDT): Chronic- We discussed the concept of smoking cessation, and how continued use we'll continue to worsen not only of the lungs but the vascular system making it increasingly difficult to get air, to get oxygen, to breathe off the gases of respiration and living. Healing will be increasingly difficult. Nourishing all tissues of the body becomes increasingly difficult and parts will due to lack of nourishment and oxygen. Assessment & Plan (11/01/2017 11:19 AM EDT): Chronic- We discussed the concept of smoking cessation, and how continued use we'll continue to worsen not only of the lungs but the vascular system making it increasingly difficult to get air, to get oxygen, to breathe off the gases of respiration and living. Healing will be increasingly difficult. Nourishing all tissues of the body becomes increasingly difficult and parts will due to lack of nourishment and oxygen. Assessment & Plan (10/04/2017 9:52 AM EDT): Chronic- We discussed the concept of smoking cessation, and how continued use we'll continue to worsen not only of the lungs but the vascular system making it increasingly difficult to get air, to get oxygen, to breathe off the gases of respiration and living. Healing will be increasingly difficult. Nourishing all tissues of the body becomes increasingly difficult and parts will due to lack of nourishment and oxygen. Assessment & Plan (08/02/2017 11:29 AM EST): Chronic- We discussed the concept of smoking cessation, and how continued use we'll continue to worsen not only of the lungs but the vascular system making it increasingly difficult to get air, to get oxygen, to breathe off the gases of respiration and living. Healing will be increasingly difficult. Nourishing all tissues of the body becomes increasingly difficult and parts will due to lack of nourishment and oxygen. Chronic pain syndrome 05/24/2017 Assessment & Plan (01/22/2025 8:58 AM EDT): Patient is functional with continuation of chronic pain meds. Appropriate to continue. Encouraged to use meds only when needed to minimize tolerance and maximize effect when truly needed. Assessment & Plan (07/29/2024 11:19 AM EST): Patient is functional with continuation of chronic pain meds. Appropriate to continue. Encouraged to use meds only when needed to minimize tolerance and maximize effect when truly needed. Assessment & Plan (01/31/2024 10:02 AM EDT): Patient is functional with continuation of chronic pain meds. Appropriate to continue. Encouraged to use meds only when needed to minimize tolerance and maximize effect when truly needed. Assessment & Plan (11/05/2023 10:47 AM EDT): Patient is functional with continuation of chronic pain meds. Appropriate to continue. Encouraged to use meds only when needed to minimize tolerance and maximize effect when truly needed. Assessment & Plan (03/16/2022 10:01 AM EDT): Patient is functional with continuation of chronic pain meds. Appropriate to continue. Encouraged to use meds only when needed to minimize tolerance and maximize effect when truly needed. Assessment & Plan (05/05/2021 10:48 AM EDT): Patient is functional with continuation of chronic pain meds. Appropriate to continue. Encouraged to use meds only when needed to minimize tolerance and maximize effect when truly needed. Assessment & Plan (12/16/2020 8:41 AM EDT): Patient is functional with continuation of chronic pain meds. Appropriate to continue. Encouraged to use meds only when needed to minimize tolerance and maximize effect when truly needed. Assessment & Plan (08/31/2020 10:48 AM EST): Patient is functional with continuation of chronic pain meds. Appropriate to continue. Encouraged to use meds only when needed to minimize tolerance and maximize effect when truly needed. Assessment & Plan (05/27/2020 9:47 AM EST): Patient is functional with continuation of chronic pain meds. Appropriate to continue. Encouraged to use meds only when needed to minimize tolerance and maximize effect when truly needed. Assessment & Plan (04/22/2020 11:20 AM EDT): Patient is functional with continuation of chronic pain meds. Appropriate to continue. Encouraged to use meds only when needed to minimize tolerance and maximize effect when truly needed. Assessment & Plan (11/06/2019 9:24 AM EDT): Patient is functional with continuation of chronic pain meds. Appropriate to continue. Encouraged to use meds only when needed to minimize tolerance and maximize effect when truly needed. Assessment & Plan (10/09/2019 9:39 AM EDT): Patient is functional with continuation of chronic pain meds. Appropriate to continue. Encouraged to use meds only when needed to minimize tolerance and maximize effect when truly needed. Assessment & Plan (08/21/2019 9:19 AM EST): Patient is functional with continuation of chronic pain meds. Appropriate to continue. Encouraged to use meds only when needed to minimize tolerance and maximize effect when truly needed. Assessment & Plan (07/25/2019 9:14 AM EST): Patient is functional with continuation of chronic pain meds. Appropriate to continue. Encouraged to use meds only when needed to minimize tolerance and maximize effect when truly needed. Assessment & Plan (05/29/2019 10:26 AM EST): Chronic- Patient is functional with continuation of chronic pain meds. Appropriate to continue. Encouraged to use meds only when needed to minimize tolerance and maximize effect when truly needed. Assessment & Plan (04/02/2019 8:49 PM EDT): Patient is functional with continuation of chronic pain meds. Appropriate to continue. Encouraged to use meds only when needed to minimize tolerance and maximize effect when truly needed. Assessment & Plan (01/09/2019 10:14 AM EDT): Patient is functional with continuation of chronic pain meds. Appropriate to continue. Encouraged to use meds only when needed to minimize tolerance and maximize effect when truly needed. Assessment & Plan (10/24/2018 11:19 AM EDT): Patient is functional with continuation of chronic pain meds. Appropriate to continue. Encouraged to use meds only when needed to minimize tolerance and maximize effect when truly needed. Assessment & Plan (08/29/2018 10:05 AM EST): Patient is functional with continuation of chronic pain meds. Appropriate to continue. Encouraged to use meds only when needed to minimize tolerance and maximize effect when truly needed. Assessment & Plan (05/30/2018 11:34 AM EST): Patient is functional with continuation of chronic pain meds. Appropriate to continue. Encouraged to use meds only when needed to minimize tolerance and maximize effect when truly needed. Assessment & Plan (04/04/2018 11:07 AM EDT): Patient is functional with continuation of chronic pain meds. Appropriate to continue. Encouraged to use meds only when needed to minimize tolerance and maximize effect when truly needed. Assessment & Plan (01/31/2018 11:40 AM EDT): Patient is functional with continuation of chronic pain meds. Appropriate to continue. Encouraged to use meds only when needed to minimize tolerance and maximize effect when truly needed. Assessment & Plan (11/01/2017 11:19 AM EDT): Chronic- Patient is functional with continuation of chronic pain meds. Appropriate to continue. Encouraged to use meds only when needed to minimize tolerance and maximize effect when truly needed. Assessment & Plan (10/04/2017 9:52 AM EDT): Chronic- Patient is functional with continuation of chronic pain meds. Appropriate to continue. Encouraged to use meds only when needed to minimize tolerance and maximize effect when truly needed. Assessment & Plan (08/02/2017 11:24 AM EST): Chronic- Patient is functional with continuation of chronic pain meds. Appropriate to continue. Encouraged to use meds only when needed to minimize tolerance and maximize effect when truly needed. Assessment & Plan (07/05/2017 11:34 AM EST): Chronic- Patient is functional with continuation of chronic pain meds. Appropriate to continue. Encouraged to use meds only when needed to minimize tolerance and maximize effect when truly needed. Assessment & Plan (05/24/2017 10:49 AM EDT): Chronic- stable Functional with current narcotic use. Sciatica of right side 03/29/2017 Assessment & Plan (10/24/2018 4:33 PM EDT): Chronic- worsening Will have pt get lumbarsacral xray completed that was ordered in the system. Assessment & Plan (10/04/2017 11:32 AM EDT): Chronic- stable Assessment & Plan (04/25/2017 11:37 AM EDT): Chronic- not controlled MRI refused, needs therapy, re-issue script. Good for only 30 days, pt educated to go Assessment & Plan (03/29/2017 10:40 AM EDT): MRI refused, needs therapy, re-issue script. Good for only 30 days, pt educated to go. Encounter for long-term opiate analgesic use 01/2017 Assessment & Plan (01/31/2018 11:41 AM EDT): Please keep in mind that all narcotic pain meds can cause unsteady gait,falls, dizziness, sedation. Narcotic medications may be habit-forming and should be used only by the person for whom it was prescribed. Keep the medication in a secure place where others cannot get to it. Do not drink alcohol while you are taking them. Dangerous side effects or can occur when alcohol is combined with a narcotic pain medicine. Check your food and medicine labels to be sure these products do not contain alcohol. Never take these medications in larger amounts, or for longer than recommended by your doctor. Follow the directions on your prescription label. Tell your doctor if the medicine seems to stop working as well in relieving your pain. These medications they will affect you. Do not stop using any of them suddenly, or you could have unpleasant withdrawal symptoms. Ask your doctor how to avoid withdrawal symptoms when you stop using them. Assessment & Plan (04/25/2017 11:38 AM EDT): Please keep in mind that all narcotic pain meds can cause unsteady gait,falls, dizziness, sedation. Narcotic medications may be habit-forming and should be used only by the person for whom it was prescribed. Keep the medication in a secure place where others cannot get to it. Do not drink alcohol while you are taking them. Dangerous side effects or can occur when alcohol is combined with a narcotic pain medicine. Check your food and medicine labels to be sure these products do not contain alcohol. Never take these medications in larger amounts, or for longer than recommended by your doctor. Follow the directions on your prescription label. Tell your doctor if the medicine seems to stop working as well in relieving your pain. These medications they will affect you. Do not stop using any of them suddenly, or you could have unpleasant withdrawal symptoms. Ask your doctor how to avoid withdrawal symptoms when you stop using them. Assessment & Plan (03/29/2017 10:41 AM EDT): Your medications have been prescribed for you alone. You must keep them up and away from others, preferably in a locked container or safe. There is no excuse for stolen or missing medications. You must be responsible or people can . Spasm 01/19/2014 Assessment & Plan (08/02/2017 11:23 AM EST): Chronic- stable Assessment & Plan (04/25/2017 11:35 AM EDT): Chronic- stable Primary osteoarthritis of right hip 01/19/2014 Assessment & Plan (07/05/2017 11:33 AM EST): Chronic- stable OA is a chronic, slowly progressive disease and is almost ubiquitous with advancing age. There is no cure, but a combination of different modalities of treatment can provide adequate pain control and preserve function and quality of life for many patients. Assessment & Plan (05/24/2017 10:58 AM EDT): Chronic- stable OA is a chronic, slowly progressive disease and is almost ubiquitous with advancing age. There is no cure, but a combination of different modalities of treatment can provide adequate pain control and preserve function and quality of life for many patients. Assessment & Plan (04/25/2017 11:36 AM EDT): Chronic- stable Assessment & Plan (03/29/2017 10:40 AM EDT): Stable, chronic. Keep active. Coronary atherosclerosis 01/19/2014 Old myocardial infarction 01/15/2014 Knee pain 12/11/2013 Assessment & Plan (05/24/2017 10:57 AM EDT): Chronic- stable Assessment & Plan (04/25/2017 11:35 AM EDT): Chronic- stable Low back pain 12/11/2013 Overview (11/09/2017): (11/02/17) xray- moderate degenerative spondylosis; 6mm anterolisthesis of L4 on L5 Assessment & Plan (08/31/2020 10:48 AM EST): Chronic- stable Assessment & Plan (12/21/2018 10:17 AM EDT): CT scan of abd/pelvis for possible kidney stone reviewed with patient. Negative for kidney stone. Assessment & Plan (10/04/2017 11:32 AM EDT): Chronic- stable Assessment & Plan (07/05/2017 11:33 AM EST): Chronic- stable Assessment & Plan (05/24/2017 10:58 AM EDT): Chronic- stable Assessment & Plan (04/25/2017 11:36 AM EDT): Chronic-stable Spinal stenosis of lumbar region 12/11/2013 Overview (07/05/2017): Chronic- stable Assessment & Plan (08/31/2020 10:48 AM EST): Chronic stable Assessment & Plan (12/21/2018 10:18 AM EDT): Pt with almost an entire script worth of her hydrocodone at today's visit. No need for a new script. Will have her return in [address] Fields. 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 Chronic left shoulder pain (Primary Dx); Chronic pain syndrome; Cigarette nicotine dependence without complication; High risk medication use; Chronic midline low back pain with right-sided sciatica; Muscle spasms of both lower extremities; Primary osteoarthritis of right hip; Right sided sciatica; Sciatica of right side; Spasm; Spinal stenosis of lumbar region, unspecified whether neurogenic claudication present; Chronic pain of both knees 12/24/2024 Telephone [facility] [address] [place] [address] Sean Sanders Medication Management from Last 3 Months Family History Medical History Relation Name Comments Addiction Daughter Heroin Heart Disease - Other Father Hypertension Father Arthritis - Osteo Mother Cancer- Other Mother pancreas cance r Depression Mother Diabetes Mother type 2 Arthritis - Osteo Other Diabetes Other siblings Heart Disease - Other Other siblin gs Hypertension Other siblings Lipid Disorder Other High choleste rol-siblings Relation Name Status Comments Daughter Father Mother Other Social History Tobacco Use Types Packs/Day Years [...] PM EDT Sexual Orientation Not on file Last Filed Vital Signs Vital Sign Reading Time Taken Comments Blood Pressure 138/78 01/22/2025 11:54 AM EDT Pulse 70 01/22/2025 11:54 AM EDT Temperature 36.2 C (97.2 F) 01/04/2023 10:29 AM EDT Respiratory Rate 20 01/31/2024 10:37 AM EDT Oxygen Saturation 98% 01/22/2025 11:54 AM EDT Inhaled Oxygen Concentration - - Weight 81.2 kg (179 lb) 01/22/2025 11:54 AM EDT Height 168.9 cm (5' 6.5 ) 01/31/2024 10:37 AM ED T Body Mass Index 28.46 01/31/2024 10:37 AM EDT Plan of Treatment Upcoming Encounters Date Type Department Care Team (Late st Contact Info) Description 04/23/2025 10:00 AM EDT Office Visit [facility] [address] [place] [address] Rosey Richard, ATTENDING UROLOGIST-[facility] [address] [place] [address] Health Maintenance Due Date Last Done Comments POTASSIUM 1963 TETANUS 1963 TSH 1963 TDAP (ADULT) 1982 LIPID SCREENING 2003 MAMMOGRAM SCREENING DISCUSSION 2003 CERVICAL CANCER SCREENING DISCUSSION 07/23/2006 07/23/2005 (Previously completed) COLORECTAL CANCER SCREENING DISCUSSION 2008 PNEUMOCOCCAL VACCINE SERIES (1 of 1 - PCV) 2013 ZOSTER (SHINGLES) VACCINE (1 of 2) 2013 COVID-19 VACCINE (1 - 2023- season) 2024 INFLUENZA VACCINE (#1) 2025 RSV VACCINE (1 - 1-dose 75+ series) 2038 HEPATITIS C VIRUS SCREENING Addressed 12/22 (Declined) Overridden with the intention of not completing the topic HIV SCREENING DISCUSSION Addressed 019 (Declined) Overridden with the intention of not completing the topic HEP B VACCINE Aged Out No longer elig ible based on patient's age to complete this topic Insurance MEDICAID MEDICARE [employer] HMO Care Teams Contact Lens Fitter Relationship Specialty Start Date End Date Christian Redding MD PCP - General Family Medicine 11/21/18
[2025-01-29 12:56] LABS: Free T3 2.44 pg/mL (2.18-3.98); Thyroid Stimulating Hormone 0.012 uIU/mL (0.358-3.740)
== END 2025-01-29 11:27 | disposition home or self-care (01) ==
LOC: LAB 11:30
PROVIDERS: PCP Nurse Practitioner Family; Visit Provider Nurse Practitioner Family
DX: E03.9 Hypothyroidism, unspecified (principal)
CPT/HCPCS: 36415; 84436; 84443; 84481

== ENCOUNTER 2025-02-17 15:16 | Outpatient (REF) | payer MEDICARE, MEDICAID, SELFPAY ==
[2025-02-17 17:09] LABS: Glucose Urine UA NEGATIVE (NEGATIVE)
[2025-02-17 17:21] LABS: Cast Seen? NONE SEEN #/LPF (NONE SEEN); Crystals Seen? None Seen #/HPF (None Seen)
== END 2025-02-17 15:17 | disposition home or self-care (01) ==
LOC: LAB 15:16
PROVIDERS: PCP Nurse Practitioner Family; Visit Provider Nurse Practitioner Family
DX: R30.0 Dysuria (principal)
CPT/HCPCS: 81001; 84436; 84443; 84481; 87086

== ENCOUNTER 2025-04-06 14:21 | Outpatient (OUT) | payer MEDICARE, MEDICAID, SELFPAY ==
[2025-04-06 15:41] LABS: Free T3 1.80 pg/mL (2.18-3.98); Thyroid Stimulating Hormone 0.017 uIU/mL (0.358-3.740)
--- OUTSIDE RECORDS SUMMARY | 2025-04-06 18:25 | XMS_ITS | CCD ---
Author Organization [facility] Care Team Providers Care Care Worker Name Role Phone Tomas Feng Unavailable Shakira Redding Primary Care Provider Shakira Redding Primary Care Provider Tomas Feng Primary Care Provider Marcelo Hinojosa Primary Care Physician UnavailMarcelo Mccann Unavailable Marcelo Zuluaga Primary Care Physician UnavailMarcelo Mccann Primary Care Physician Shakira Redding MD Primary Care Provider [phone] Marcelo Hinojosa Primary Care Physician UnavailMarcelo Mccann Unavailable Unavailable Shakira Redding MD Primary Care Provider [phone] KYLIE SPEAR Admitting Unavailable BEATRIS, KYLIE Primary Care Unavailable KYLIE SPEAR Attending Unavailable MISC, DR HANNA Attending Unavailable KYLIE SPEAR Primary Care Unavailable MISC, DR HANNA Admitting Unavailable MISC, DR HANNA Consulting Unavailable ZIEBER, DR ALYSHA Higginbotham Consulting Danielle Redding MD, Shakira Primary Care Provider [phone] Marcelo Hinojosa Primary Care Physician UnavailMarcelo Mccann Primary Care Physician Unavailab Marcelo Ugalde Primary Care Physician Unavailab Marcelo Ugalde Primary Care Physician UnavailShakira Snowden MD Primary Care Provider [phone] EDE RICHARD Attending Unavailable SHAKIRA REDDING Primary Care Unavailable JOSE MANUEL, EDE L Referring Unavailable JOSE MANUEL, EDE L Referring Unavailable SHAKIRA REDDING M Primary Care Unavailable JOSE MANUELEDE LARSEN L Attending Unavailable SHKAIRA REDDING Primary Care Unavailable EDE RICHARD L Attending Unavailable JOSE MANUEL, EDE L Referring Unavailable SHAKIRA REDDING M Primary Care Unavailable Anahy ROMERO Attending Unavailable JOSE MANUEL, EDE L Referring Unavailable JOSE MANUEL, EDE L Attending Unavailable SHAKIRA REDDING Primary Care Unavailable EDE RICHARD Referring Unavailable Beatris COLONC, Kylie Nolasco Attending Provider Kylie Spear Attending Unavailable Kylie Spear Admitting Unavailable Allergies Allergy Classification Reported Allergen(s) Allergy Type Date of Onset Reaction(s) Facility DULoxetine (1 source) DULoxetine Drug Allergy 1 Pain, Aggressive Behavior [facility] Folic Acid (3 sources) Folic Acid Drug Allergy [facility] NSAIDs (3 sources) celecoxib Drug Allergy [facility] Sulfonamides (antibiotic) (3 sources) Sulfonamides (Antibiotic) Drug Allergy [facility] (20 sources) celecoxib Drug Allergy [facility] Work Phone: (20 sources) Folic Acid Drug Allergy [facility] Work Phone: (20 sources) Sulfonamides (Antibiotic) Propensity to adverse reactions to drug [facility] Work Phone: (14 sources) Sulfonamides (Antibiotic) Allergy to substance (disorder) [facility] (13 sources) DULoxetine Drug Allergy 1 Pain, Aggressive Behavior [facility] (2 sources) Sulfonamides (Antibiotic) Drug allergy (disorder) 4 [facility] (6 sources) celecoxib Drug Allergy [facility] (6 sources) Sulfonamides (Antibiotic) Propensity to adverse reactions to drug [facility] (2 sources) Lisinopril Propensity to adverse reactions to drug 5 [facility]ough [facility] (2 sources) Sulfacetamide; Translations: [sulfacetamide] Drug Allergy 1 [facility] (2 sources) Sulfur; Translations: [sulfur] Drug Allergy 1 [facility] Medications Current Medications Medication Drug Class(es) Dates Sig (Normalized) Sig (Original) Acetaminophen (20 sources) Acetaminophen (T YLENOL ARTHRITIS PAIN PO) Take 1 tablet by mouth As directed as needed. 0 Active Acetaminophen (T YLENOL ARTHRITIS PAIN PO) Take 1 tablet by mouth As directed as needed. Active acetaminophen 325 mg / HYDROcodone bitartrate 10 mg oral tablet (20 sources) Opioid Agonist Start: 03-23-2025 End: 04-22-2025 hydroCODone-acetaminophen 10 -325 MG tablet Indications: Chronic pain syndrome , Chronic midline low back pain with right-sided sciatica , Spinal stenosis of lumbar region, unspecified whether neurogenic claudication present , Chronic pain of both knees 1-2 tablet every 8 hours as needed for pain 90 tablet 03/23/2025 04/22/2025 Active Start: 05-05-2021 End: 02-21-2025 hydroCODone-acetaminophen 10 -325 MG tablet Indications: Spinal stenosis of lumbar region, unspecified whether neurogenic claudication present , Chronic pain syndrome , Chronic pain of both knees , Chronic midline low back pain with right-sided sciatica 1-2 tablet every 8 hours as needed for pain 90 tablet 12/22/2024 01/22/2025 Discontinued (Reorder) Start: 11-01-2020 End: 03-06-2021 hydroCODone-acetaminophen 10 -325 MG tablet Indications: Chronic pain syndrome , Spinal stenosis of lumbar region, unspecified whether neurogenic claudication present , Chronic pain of both knees , Chronic midline low back pain with right-sided sciatica 1-2 tablet every 8 hours as needed for pain 90 tablet 0 02/17/2021 03/06/2021 Active Start: 12-04-2019 End: 10-19-2020 hydroCODone-acetaminophen 10 -325 MG tablet Indications: Chronic pain syndrome , Chronic pain of both knees , Chronic midline low back pain with right-sided sciatica , Spinal stenosis of lumbar region, unspecified whether neurogenic claudication present 1-2 tablet every 8 hours as needed for pain 100 tablet 0 01/08/2020 02/05/2020 Discontinued (Reorder) Start: 10-24-2018 End: 11-27-2019 hydroCODone-acetaminophen 10 -325 MG Tab tablet Indications: Chronic pain syndrome , Chronic pain of both knees , Chronic midline low back pain with right-sided sciatica , Spinal stenosis of lumbar region, unspecified whether neurogenic claudication present 1-2 tablet every 8 hours as needed for pain 100 tablet 0 03/06/2019 04/03/2019 Discontinued (Reorder) Start: 06-29-2018 End: 10-24-2018 hydroCODone-acetaminophen 10 -325 MG Tab tablet Indications: Chronic pain syndrome , Chronic pain of both knees , Chronic midline low back pain with right-sided sciatica , Spinal stenosis of lumbar region, unspecified whether neurogenic claudication present 1/2 to 1 tablet every 6 hours as needed for pain 90 tablet 0 08/29/2018 10/24/2018 Discontinued Start: 05-30-2018 End: 06-27-2018 hydroCODone-acetaminophen 10 -325 MG Tab tablet Indications: Chronic pain syndrome , Chronic pain of both knees , Chronic midline low back pain with right-sided sciatica , Spinal stenosis of lumbar region, unspecified whether neurogenic claudication present 1/2 to 1 tablet every 6 hours as needed for pain 90 tablet 0 05/30/2018 06/27/2018 Discontinued atorvastatin 80 mg oral tablet (20 sources) HMG-CoA Reductase Inhibitor Start: 03-16-2015 End: 05-12-2024 take 1 tablet by mouth once daily atorvastatin 80 MG tablet Take 1 tablet by mouth daily. (dr. Goss) 03/16/2015 Active busPIRone hydrochloride 15 mg oral tablet (20 sources) Start: 08-15-2021 End: 11-05-2023 take 1 tablet by mouth twice daily busPIRone 15 MG tablet Indications: Generalized anxiety disorder Take 1 tablet by mouth 2 times daily. 60 tablet 3 11/05/2023 Active Start: 07-07-2021 End: 07-07-2021 take 1 tablet by mouth twice daily busPIRone 15 MG tablet Indications: Generalized anxiety disorder Take 1 tablet by mouth 2 times daily. 60 tablet 0 07/07/2021 Active take 1 tablet by jennie once daily busPIRone 15 MG tablet Take 15 mg by mouth daily. 0 Active cholecalciferol 0.05 mg oral tablet (20 sources) Vitamin D Start: 03-16-2015 Cholecalcifero l (VITAMIN D3) 2000 units Tab Take by mouth 2 times daily. As directed 03/16/2015 Active Start: 03-16-2015 Cholecalcifero l (VITAMIN D3) 2000 units Tab take by mouth 2 times daily.. As directed 0 03/16/2015 Active ciprofloxacin 500 mg oral tablet (3 sources) Quinolone Antimicrobial Start: 02-03-2019 End: 07-07-2021 ciprofloxacin (CIPRO) 500 MG Tab tablet Take 500 mg by mouth 2 times daily. 2 times daily for 10 days 0 02/03/2019 02/13/2019 Active ubidecarenone 100 mg oral tablet (20 sources) Start: 12-08-2021 take 1 tablet by mouth once daily Coenzyme Q10 100 MG tablet Indications: Chronic pain of both knees , Other chronic pain , Atherosclerosis of coronary artery of [place] heart without angina pectoris, unspecified vessel or lesion type Take 1 tablet by mouth daily. 90 tablet 3 12/08/2021 Active Start: 05-01-2019 End: 12-08-2021 Coenzyme Q10 50 MG Tab Indic ations: Chronic pain of both knees , Other chronic pain Take 4 tablets by mouth daily. 120 tablet 3 05/01/2019 12/08/2021 Discontinued (Reorder) Start: 04-03-2019 End: 05-01-2019 Coenzyme Q10 (COQ10 GUMMIES ADULT) 50 MG Chew Tab Indications: Chronic pain syndrome , Primary osteoarthritis of right hip Chew 1 tablet daily. 30 tablet 11 04/03/2019 05/01/2019 Discontinued (Alternate therapy) cyclobenzaprine hydrochloride 10 mg oral tablet (20 sources) Muscle Relaxant Start: 11-10-2021 End: 05-03-2024 take 1 tablet by mouth at bedtime Cyclobenzaprine 10 MG tablet Indications: Right sided sciatica , Spasm , Chronic midline low back pain without sciatica Take 1 tablet by mouth at bedtime. 90 tablet 1 04/28/2024 Active Start: 08-14-2019 End: 10-06-2021 take 1 tablet by mouth once daily cyclobenzaprine 10 MG tablet Indications: Right sided sciatica , Spasm , Chronic midline low back pain without sciatica Take 1 tablet by mouth daily. 30 tablet 3 12/16/2020 Active Start: 04-04-2018 End: 10-24-2018 take 1 tablet by mouth once daily cyclobenzaprine 10 MG Tab tablet Indications: Right sided sciatica , Spasm Take 1 tablet by mouth daily. 30 tablet 3 10/24/2018 Active diclofenac sodium 0.01 mg/mg topical gel (20 sources) Nonsteroidal Anti-inflammatory Drug Start: 04-28-2019 DICLOFENAC SODIUM 1 % Gel gel APPLY 2 GRAMS ON SKIN TOPICALLY FOUR TIMES A DAY NEEDED 100 g 2 04/28/2019 Active Start: 01-03-2018 End: 04-27-2019 Diclofenac Sodium 1 % Gel ge l Place 1 Application on skin 4 times daily as needed. 2 Tube 3 01/03/2018 04/27/2019 Discontinued (Reorder) doxycycline monohydrate 100 mg oral capsule (1 source) Tetracycline-class Drug Start: 12-09-2018 End: 12-30-2018 take 1 capsule by mouth every twelve hours doxycycline monohydrate 100 MG Cap capsule Take 100 mg by mouth every 12 hours. 0 12/09/2018 12/30/2018 Active DULoxetine 60 mg delayed release oral capsule (13 sources) Serotonin and Norepinephrine Reuptake Inhibitor Start: 07-29-2024 take 1 capsule by mouth once daily DULoxetine [address] Particles capsule DR Indications: Chronic pain of both knees , Other chronic pain TAKE 1 CAPSULE BY MOUTH DAILY 90 capsule 2 07/29/2024 Active Start: 10-05-2022 End: 11-05-2023 take 1 capsule by mouth once daily DULoxetine [address] Particles capsule DR Indications: Chronic pain of both knees , Other chronic pain Take 1 capsule by mouth daily. 90 capsule 2 11/05/2023 Active Start: 12-08-2021 End: 10-05-2022 take 1 capsule by mouth once daily DULoxetine [address] Particles capsule DR Indications: Chronic pain of both knees , Other chronic pain Take 1 capsule by mouth daily. 90 capsule 3 12/08/2021 10/05/2022 Discontinued folic acid 0.8 mg oral tablet (20 sources) Start: 03-16-2015 take 1 tablet by mouth once daily Folic Acid 800 MCG Tab Take 1 tablet by mouth daily. 03/16/2015 Active gabapentin 300 mg oral capsule (20 sources) Anti-epileptic Agent Start: 09-09-2024 take 1 capsule by mouth three times daily as needed gabapentin 300 mg capsule 09/09/2024 take 1 capsule (300 mg) by oral route 3 times per day as needed Start: 05-05-2021 End: 03-25-2026 Gabapentin 300 MG capsule Indications: Right sided sciatica , Spinal stenosis of lumbar region, unspecified whether neurogenic claudication present Take 1 cap by mouth daily at bedtime and twice a day as needed for sharp shooting or burning pain 270 capsule 1 10/23/2024 03/25/2026 Active Start: 04-04-2018 End: 05-02-2021 gabapentin 300 MG capsule Indications: Spinal stenosis of lumbar region, unspecified whether neurogenic claudication present , Right sided sciatica Take 1 cap by mouth daily at bedtime and twice a day as needed for sharp shooting or burning pain 90 capsule 3 08/31/2020 05/02/2021 Active take 1 tablet by jennie th three times daily gabapentin 600 mg oral tablet take 1 tablet (600 mg) by oral route 3 times per day icosapent ethyl 1000 mg oral capsule (14 sources) Start: 10-28-2023 Icosapent Ethy l 1 g capsule Take 1 capsule by mouth 2 times daily. Usually takes once daily 10/28/2023 Active Start: 05-18-2023 take 2 capsules by out twice daily at mealtime Vascepa 1 gram capsule 05/18/2023 take 2 capsules (2 gram) by oral route 2 times per day with food swallowing whole. Do not chew, open, dissolve and/or crush. liothyronine sodium 0.005 mg oral tablet (20 sources) l-Triiodothyronine Start: 06-06-2018 take 2 tablets by mouth once daily liothyronine 5 MCG Tab Take 2 tablets by mouth daily. 1 06/06/2018 Active Start: 06-06-2018 take 1 tablet by jennie th once daily liothyronine 5 MCG Tab Take 5 mcg by mouth daily. 1 06/06/2018 Active magnesium oxide 500 mg oral tablet (20 sources) Start: 04-21-2024 take 1 tablet by mouth once daily at bedtime Magnesium Oxide -Mg Supplement 500 MG tablet Indications: Spasm take 1 tablet by mouth every night at bedtime 90 tablet 3 04/21/2024 Active Start: 12-28-2023 take 1 tablet by jennie once daily at bedtime Magnesium Oxide -Mg Supplement 500 MG tablet Indications: Spasm take 1 tablet by mouth every night at bedtime 90 tablet 12/28/2023 Active Start: 09-10-2023 take 1 tablet by jennie th once daily at bedtime Magnesium Oxide -Mg Supplement 500 MG tablet Indications: Spasm take one tablet by mouth every night at bedtime 90 tablet 09/10/2023 Active Start: 05-29-2022 take 1 tablet by jennie th once daily at bedtime Magnesium Oxide 500 MG tablet Indications: Spasm TAKE ONE TABLET BY MOUTH EVERY NIGHT AT BEDTIME 30 tablet 11 05/29/2022 Active Start: 05-05-2021 take 1 tablet by jennie th at bedtime Magnesium Oxide 500 MG tablet Indications: Spasm Take 1 tablet by mouth at bedtime. 30 tablet 11 05/05/2021 Active Start: 03-16-2015 Magnesium Oxid e 500 MG Tab take 500 mg by mouth daily.. With a meal 0 03/16/2015 Active take 1 capsule by [facility] once daily magnesium oxide 500 mg capsule take 1 capsule by oral route daily naloxone hydrochloride 40 mg/ml nasal spray (15 sources) Opioid Antagonist Start: 10-23-2024 End: 10-23-2024 naloxone 4 MG/0.1ML 1 spray by Nasal route once for 1 dose. [place] into the nose as directed. Call 911. If no response in 2 minutes use a new nasal spray in other nostril. Repeat until help arrives. 1 Each 10/23/2024 Active Start: 06-02-2021 End: 06-02-2021 naloxone 4 MG/0.1ML Indicati ons: Encounter for long-term opiate analgesic use 1 spray by Nasal route once for 1 dose. [place] into the nose as directed. Call 911. If no response in 2 minutes use a new nasal spray in other nostril. Repeat until help arrives. 1 Each 06/02/2021 Active nystatin [id number] unt/ml oral suspension (1 source) Polyene Antifungal take 006165 [IU] by mouth four times daily nystatin 694524 UNIT/ML oral suspension Swish and swallow 500,000 Units 4 times daily. 0 Active omega-3 acid ethyl esters (detention) 1000 mg oral capsule (20 sources) Start: 03-16-2015 [place]-3 Fatty Acids (FISH OIL) 1000 MG Cap take 1,000 mg by mouth 2 times daily.. 0 03/16/2015 Active omeprazole 40 mg delayed release oral capsule (20 sources) Proton Pump Inhibitor take 1 capsule by mouth once daily omeprazole [address] capsule Take 1 capsule by mouth daily. Active End: 02-25-2019 take 1 tablet by mouth once daily Prilosec OTC 20 mg oral tablet,delayed release (DR/EC) 02/25/2019 take 1 tablet by oral route daily Ozempic, 0.25 or 0.5 MG/DOSE, 2 MG/3ML Solution Pen-injector (1 source) inject 0.5 mg by subcutaneous injection every week Ozempic, 0.25 or 0.5 MG/DOSE, 2 MG/3ML Solution Pen-injector DIAL 0.5 MG AND INJECT UNDER THE SKIN WEEKLY for 28 days Active predniSONE 20 mg oral tablet (1 source) Start: 08-21-19 End: 08-30-19 predniSONE 20 MG Tab tablet Indications: Hives 3 tabs daily for 3 days, 2 tabs daily for 3 days, 1 tab daily for 3 days. 18 tablet 0 08/21/2019 08/30/2019 Active traMADol hydrochloride 50 mg oral tablet (20 sources) Opioid Agonist Start: 05-30-20 End: 07-01-20 take 1-2 tablets by mouth every six hours as needed for pain traMADol 50 MG tablet Indications: Right sided sciatica , Spinal stenosis of lumbar region, unspecified whether neurogenic claudication present TAKE ONE TO TWO TABLETS BY MOUTH EVERY 6 HOURS NEEDED FOR PAIN 180 tablet 3 10/23/2024 07/01/2025 Active take 1 tablet by jennie every four hours as needed Ultram 50 mg oral tablet take 1 tablet (50 mg) by oral route every 4 hours as needed (max of 8/day) ubidecarenone 100 mg / vitamin e 5 unt oral capsule (9 sources) Start: 02-05-2023 End: 10-23-2024 take 1 capsule by mouth once daily Coenzyme Q-10 100 MG capsule Indications: Chronic pain of both knees , Other chronic pain , Atherosclerosis of coronary artery of [place] heart without angina pectoris, unspecified vessel or lesion type Take 1 capsule by mouth daily. 90 capsule 3 10/23/2024 Active 24 hr venlafaxine 150 mg extended release oral tablet (20 sources) Serotonin and Norepinephrine Reuptake Inhibitor Start: 03-16-2015 End: 10-09-2019 take 1 capsule by mouth every twenty-four hours venlafaxine (EFFEXOR XR) 75 MG Cap SR 24HR take 75 mg by mouth daily.. 0 03/16/2015 10/09/2019 Discontinued Start: 03-16-2015 End: 10-09-2019 take 1 tablet by mouth at mealtime Venlafaxine HCl 150 MG tablet ER take 150 mg by mouth daily.. With food 0 03/16/2015 10/09/2019 Discontinued take 1 capsule by mo [facility] every twenty-four hours Effexor XR 150 mg oral capsule,extended release 24hr take 1 capsule (150 mg) by oral route once daily-take one tablet by mouth with 75mg tablet daily vitamin b12 1 mg oral tablet (20 sources) Vitamin B12 cyanocobalamin 1 000 MCG tablet Take by mouth. Active Completed/Discontinued Medications Medication Drug Class(es) Dates Sig (Normalized) Sig (Original) acetaminophen 325 mg / oxyCODONE hydrochloride 5 mg oral tablet (14 sources) Opioid Agonist take 1 tablet by mouth every eight hours as needed Percocet 5-325 mg oral tablet take 1 tablet by oral route every 8 hours as needed aspirin 325 mg delayed release oral tablet (20 sources) Platelet Aggregation Inhibitor, Nonsteroidal Anti-inflammatory Drug Start: 12-06-2020 End: 01-13-2021 take 1 tablet by mouth once daily RA Aspirin EC [address] Take 325 mg by mouth daily. 0 12/06/2020 01/13/2021 Discontinued (Duplicate (suppress cancel msg)) Start: 12-18-2014 take 1 tablet by jennie th once daily aspirin 325 MG Tab Take 1 tablet by mouth daily. 03/16/2015 Active 24 hr buPROPion hydrochloride 150 mg extended release oral tablet (2 sources) Aminoketone End: 01-08-2020 take 1 tablet by mouth once daily in the morning buPROPion (Wellbutrin XL) 150 MG tablet XL Take 150 mg by mouth daily every morning. 0 01/08/2020 Discontinued (Medication Reconciliation (suppress cancel msg)) celecoxib 100 mg oral capsule (2 sources) Nonsteroidal Anti-inflammatory Drug Start: 12-04-2019 End: 02-05-2020 take 1 capsule by mouth twice daily celecoxib 100 MG capsule Indications: Chronic pain of both knees , Primary osteoarthritis of right hip Take 1 capsule by mouth 2 times daily. 60 capsule 3 12/04/2019 02/05/2020 Discontinued (Therapy completed) clopidogrel 75 mg oral tablet (14 sources) [id number] Platelet Inhibitor Start: 09-22-2015 End: 07-07-2016 take 1 tablet by mouth once daily clopidogrel 75 mg oral tablet 09/22/2015 07/07/2016 take 1 tablet (75 mg) by oral route once daily docosahexaenoic acid 120 mg / eicosapentaenoic acid 180 mg oral capsule (20 sources) Start: 03-16-2015 End: 04-28-2024 take 1 capsule by mouth twice daily [place]-3 Fatty Acids (FISH OIL) 1000 MG Cap Take 1 capsule by mouth 2 times daily. 03/16/2015 04/28/2024 Discontinued (Medication Reconciliation (suppress cancel msg)) Start: 03-16-2015 [place]-3 Fatty Acids (FISH OIL) 1000 MG Cap take 1,000 mg by mouth 2 times daily.. 0 03/16/2015 Active Fish Oils (13 sources) take 1 capsule by mouth once daily Fish Oil 1,000 mg (120 mg-180 mg) oral capsule take 1 capsule by oral route daily furosemide 20 mg oral tablet (20 sources) Loop Diuretic Start: 05-13-2024 take 1 tablet by mouth once daily as needed Lasix 20 mg oral tablet 05/13/2024 take 1 tablet (20 mg) by oral route once daily prn Start: 05-18-2023 take 1 tablet by jennie th once daily as needed Lasix 20 mg oral tablet 05/18/2023 take 1 tablet (20 mg) by oral route once daily prn Start: 05-24-2021 take 1 tablet by jennie th once daily as needed Lasix 20 mg oral tablet 05/24/2021 take 1 tablet (20 mg) by oral route once daily prn Start: 06-28-2017 furOSEmide 20 MG Tab tablet 0 06/28/2017 Active hyoscyamine sulfate 0.125 mg sublingual tablet (10 sources) Start: 11-18-2020 End: 01-04-2023 hyoscyamine 0.125 MG Tab SL tablet SL dissolve 1 tablet under the tongue twice a day if needed 0 11/18/2020 01/04/2023 Discontinued (Medication Reconciliation (suppress cancel msg)) 24 hr isosorbide mononitrate 30 mg extended release oral tablet (15 sources) Nitrate Vasodilator Start: 05-13-2024 take 1 tablet by mouth once daily in the morning isosorbide mononitrate 30 mg oral tablet extended release 24 hr 05/13/2024 take 1 tablet (30 mg) by oral route once daily in the morning Start: 05-18-2023 take 1 tablet by jennie th once daily in the morning isosorbide mononitrate 30 mg oral tablet extended release 24 hr 05/18/2023 take 1 tablet (30 mg) by oral route once daily in the morning Start: 10-06-2020 End: 01-13-2021 isosorbide mononitrate 30 MG Tab SR 24 HR tablet XL Start: 10-05-2020 take 1 tablet by jennie th once daily in the morning isosorbide mononitrate 30 mg oral tablet extended release 24 hr 10/05/2020 take 1 tablet (30 mg) by oral route once daily in the morning levothyroxine sodium 0.112 mg oral tablet (20 sources) l-Thyroxine Start: 06-18-2017 End: 12-08-2021 take 2 tablets by mouth once daily in the morning levothyroxine 112 MCG Tab tablet take 2 tablets by mouth every morning ON AN EMPTY STOMACH WAIT 30 MINUTES BEFORE EATING 0 06/18/2017 12/08/2021 Discontinued (Dose adjustment (suppress cancel msg)) take 1 tablet by jennie th once daily levothyroxine 200 MCG tablet Take 1 tablet by mouth daily. Active End: 01-31-2017 take 1 tablet by mouth once daily levothyroxine 25 mcg oral tablet 01/31/2017 take 1 tablet (25 mcg) by oral route once daily lisinopril 5 mg oral tablet (20 sources) Angiotensin Converting Enzyme Inhibitor Start: 09-09-2024 End: 09-09-2024 take 1 tablet by mouth once daily lisinopril 5 mg oral tablet 09/09/2024 09/09/2024 TAKE ONE TABLET BY MOUTH DAILY Start: 09-09-2024 End: 09-09-2024 take 1 tablet by mouth once daily lisinopril 5 mg oral tablet 09/09/2024 09/09/2024 TAKE ONE TABLET BY MOUTH DAILY Start: 09-09-2024 End: 09-09-2024 take 1 tablet by mouth once daily lisinopril 5 mg oral tablet 09/09/2024 09/09/2024 TAKE ONE TABLET BY MOUTH DAILY Start: 09-09-2024 End: 09-09-2024 take 1 tablet by mouth once daily lisinopril 5 mg oral tablet 09/09/2024 09/09/2024 TAKE ONE TABLET BY MOUTH DAILY Start: 09-09-2024 End: 09-09-2024 take 1 tablet by mouth once daily lisinopril 5 mg oral tablet 09/09/2024 09/09/2024 TAKE ONE TABLET BY MOUTH DAILY Start: 09-09-2024 End: 09-09-2024 take 1 tablet by mouth once daily lisinopril 5 mg oral tablet 09/09/2024 09/09/2024 TAKE ONE TABLET BY MOUTH DAILY Start: 09-09-2024 End: 09-09-2024 take 1 tablet by mouth once daily lisinopril 5 mg oral tablet 09/09/2024 09/09/2024 TAKE ONE TABLET BY MOUTH DAILY Start: 05-18-2023 take 1 tablet by jennie once daily lisinopril 5 mg oral tablet 05/18/2023 TAKE ONE TABLET BY MOUTH DAILY Start: 03-16-2015 End: 10-23-2024 take 1 tablet by mouth once daily lisinopril 5 MG Tab Take 1 tablet by mouth daily. (dr. Goss) 03/16/2015 10/23/2024 Discontinued (Discontinued by another clinician (sirisha jack)) losartan potassium 25 mg oral tablet (9 sources) Angiotensin 2 Receptor Roby Start: 09-09-2024 take 1 tablet by mouth once daily losartan 25 mg tablet 09/09/2024 take 1 tablet (25 mg) by oral route once daily metFORMIN hydrochloride 1000 mg oral tablet (20 sources) Biguanide Start: 01-31-2017 take 1 tablet by mouth twice daily metformin 1,000 mg oral tablet 01/31/2017 take 1 tablet by oral route 2 times a day Start: 03-16-2015 End: 05-27-2020 take 2 tablets by mouth at dinner metformin 500 MG Tab take 1,000 mg by mouth 2 times daily.. With morning and evening meals 0 03/16/2015 05/27/2020 Discontinued methylPREDNISolone 4 mg oral tablet (1 source) Corticosteroid Start: 07-05-2022 End: 10-05-2022 methylPREDNIsolone 4 MG Tab Therapy Pack tablet Indications: Hip pain, chronic, left Take 1 tablet by mouth As directed. follow package directions 1 Each 0 07/05/2022 10/05/2022 Discontinued (Therapy completed) metoprolol tartrate 50 mg oral tablet (20 sources) beta-Adrenergic Roby Start: 07-07-2016 End: 07-07-2016 take 1 tablet by mouth twice daily at mealtime Lopressor 50 mg oral tablet 07/07/2016 07/07/2016 take 1 tablet (50 mg) by oral route 2 times per day with meals Start: 07-07-2016 End: 07-07-2016 take 1 tablet by mouth twice daily at mealtime Lopressor 50 mg oral tablet 07/07/2016 07/07/2016 take 1 tablet (50 mg) by oral route 2 times per day with meals Start: 07-07-2016 End: 07-07-2016 take 1 tablet by mouth twice daily at mealtime Lopressor 50 mg oral tablet 07/07/2016 07/07/2016 take 1 tablet (50 mg) by oral route 2 times per day with meals Start: 07-07-2016 End: 07-07-2016 take 1 tablet by mouth twice daily at mealtime Lopressor 50 mg oral tablet 07/07/2016 07/07/2016 take 1 tablet (50 mg) by oral route 2 times per day with meals Start: 07-07-2016 End: 07-07-2016 take 1 tablet by mouth twice daily at mealtime Lopressor 50 mg oral tablet 07/07/2016 07/07/2016 take 1 tablet (50 mg) by oral route 2 times per day with meals Start: 07-07-2016 End: 07-07-2016 take 1 tablet by mouth twice daily at mealtime Lopressor 50 mg oral tablet 07/07/2016 07/07/2016 take 1 tablet (50 mg) by oral route 2 times per day with meals Start: 07-07-2016 End: 07-07-2016 take 1 tablet by mouth twice daily at mealtime Lopressor 50 mg oral tablet 07/07/2016 07/07/2016 take 1 tablet (50 mg) by oral route 2 times per day with meals Start: 07-07-2016 End: 07-07-2016 take 1 tablet by mouth twice daily at mealtime Lopressor 50 mg oral tablet 07/07/2016 07/07/2016 take 1 tablet (50 mg) by oral route 2 times per day with meals Start: 07-07-2016 End: 07-07-2016 take 1 tablet by mouth twice daily at mealtime Lopressor 50 mg oral tablet 07/07/2016 07/07/2016 take 1 tablet (50 mg) by oral route 2 times per day with meals Start: 07-07-2016 End: 07-07-2016 take 1 tablet by mouth twice daily at mealtime Lopressor 50 mg oral tablet 07/07/2016 07/07/2016 take 1 tablet (50 mg) by oral route 2 times per day with meals Start: 07-07-2016 End: 07-07-2016 take 1 tablet by mouth twice daily at mealtime Lopressor 50 mg oral tablet 07/07/2016 07/07/2016 take 1 tablet (50 mg) by oral route 2 times per day with meals Start: 07-07-2016 End: 07-07-2016 take 1 tablet by mouth twice daily at mealtime Lopressor 50 mg oral tablet 07/07/2016 07/07/2016 take 1 tablet (50 mg) by oral route 2 times per day with meals Start: 07-07-2016 End: 07-07-2016 take 1 tablet by mouth twice daily at mealtime Lopressor 50 mg oral tablet 07/07/2016 07/07/2016 take 1 tablet (50 mg) by oral route 2 times per day with meals Start: 07-07-2016 End: 07-07-2016 take 1 tablet by mouth twice daily at mealtime Lopressor 50 mg oral tablet 07/07/2016 07/07/2016 take 1 tablet (50 mg) by oral route 2 times per day with meals Start: 06-29-2016 End: 01-31-2017 take 1 tablet by mouth twice daily at mealtime Lopressor oral tablet 50 mg tablet 06/29/2016 01/31/2017 take 1 tablet (50 mg) by oral route 2 times per day with meals 25mg BID Start: 08-30-2013 End: 05-11-2022 take 1 tablet by mouth twice daily metoprolol 25 MG tab regular release Take 1 tablet by mouth 2 times daily. 03/16/2015 Active nitroglycerin 0.4 mg sublingual tablet (20 sources) Nitrate Vasodilator Start: 09-09-2024 Nitrostat 0.4 mg sublingual tablet, sublingual 09/09/2024 place 1 tablet (0.4 mg) by sublingual route 5-10 minutes prior to activities which might precipitate an attack Start: 05-18-2023 Nitrostat 0.4 mg sublingual tablet, sublingual 05/18/[address]23 place 1 tablet (0.4 mg) by sublingual route 5-10 minutes prior to activities which might precipitate an attack Start: 09-23-2020 Nitrostat 0.4 mg sublingual tablet, sublingual 09/23/2020 place 1 tablet (0.4 mg) by sublingual route 5-10 minutes prior to activities which might precipitate an attack Start: 08-07-2018 Nitrostat 0.4 mg sublingual tablet, sublingual 08/07/2018 place 1 tablet (0.4 mg) by sublingual route 5-10 minutes prior to activities which might precipitate an attack Start: 06-13-2017 nitroGLYCERIN 0.4 MG tablet SL 1 06/13/2017 Active potassium chloride 10 meq extended release oral tablet (20 sources) Start: 05-13-2024 take 1 tablet by mouth once daily as needed potassium chloride 10 mEq oral tablet extended release 05/13/2024 take 1 tab daily po prn only when you take the lasix Start: 05-18-2023 take 1 tablet by jennie th once daily as needed potassium chloride 10 mEq oral tablet extended release 05/18/2023 take 1 tab daily po prn only when you take the lasix Start: 05-24-2021 take 1 tablet by jennie th once daily as needed potassium chloride 10 mEq oral tablet extended release 05/24/2021 take 1 tab daily po prn only when you take the lasix Start: 07-25-2017 take 1 tablet by jennie th once daily potassium chloride 10 MEQ Tab CR tablet ER take 1 tablet by mouth once daily WHEN TAKING LASIX 0 07/25/2017 Active raNITIdine 150 mg oral tablet (13 sources) Histamine-2 Receptor Antagonist Start: 03-16-2015 End: 03-06-2019 ranitidine (ZANTAC) 150 MG Tab take 150 mg by mouth 2 times daily.. (dr. Feng) 0 03/16/2015 03/06/2019 Discontinued sertraline 50 mg oral tablet (20 sources) Serotonin Reuptake Inhibitor Start: 12-04-2020 take 1 tablet by mouth once daily Zoloft 50 mg tablet 09/09/2024 take 1 tablet (50 mg) by oral route once daily take 1 tablet by mouth once apoolnia y Zoloft 25 mg oral tablet take 1 tablet (25 mg) by oral route once daily SITagliptin 100 mg oral tablet (20 sources) Dipeptidyl Peptidase 4 Inhibitor Start: 05-11-2017 End: 05-18-2023 take 1 tablet by mouth once daily JANUVIA 100 MG Tab tablet take 1 tablet by mouth once daily 0 05/11/2017 12/08/2021 Discontinued (Therapy completed) sucralfate 1000 mg oral tablet (20 sources) Aluminum Complex Start: 03-16-2015 End: 01-04-2023 take 1 tablet by mouth four times daily sucralfate 1 g tablet Take 1 tablet by mouth 4 times daily. On an empty stomach 0 03/16/2015 01/04/2023 Discontinued (Medication Reconciliation (suppress cancel msg)) ubiquinone 200 mg oral capsule (15 sources) Start: 03-06-2019 End: 04-03-2019 take 1 capsule by mouth once daily at mealtime Coenzyme Q10 200 MG Cap Indications: Muscle spasms of both lower extremities Take 1 capsule by mouth daily. With a meal 30 capsule 6 03/06/2019 04/03/2019 Discontinued Start: 03-16-2015 End: 03-06-2019 take 10 capsules by mouth once Coenzyme Q10 200 MG Cap take 200 mg by mouth daily.. With a meal 0 03/16/2015 03/06/2019 Discontinued (Reorder) Start: 03-16-2015 take 1 capsule by mouth once C oenzyme Q10 200 MG Cap take 200 mg by mouth daily.. With a meal 03/16/2015 Active zinc gluconate 50 mg oral tablet (20 sources) End: 10-06-2021 take 1 tablet by mouth once daily zinc gluconate 50 mg oral tablet take 1 tablet by oral route daily Problems Active Problems Problem Classification Problem Date Documented Da te Episodic/Chronic Acute myocardial infarction (20 sources) Acute myocardial infarction of unspecified site, episode of care unspecified; Translations: [Myocardial Infarction, Acute] Onset: 08-29-2013 Chronic Allergic reactions (1 source) Urticaria; Translations: [Hives] Episodic Anxiety disorders (2 sources) Generalized anxiety disorder; Translations: [Generalized anxiety disorder] Chronic Coronary atherosclerosis and other heart disease (20 sources) Coronary atherosclerosis; Translations: [Old myocardial infarction] Onset: 10-13-2013 02-21-2017 Chronic Diabetes mellitus without complication (20 sources) Type 2 diabetes mellitus without complication; Translations: [Type 2 diabetes mellitus without complications] Onset: 07-30-2018 01-09-2019 Chronic Disorders of lipid metabolism (20 sources) Mixed hyperlipidemia; Translations: [Mixed hyperlipidemia] Onset: 10-13-2013 12-12-2018 Chronic Esophageal disorders (20 sources) Gastro-esophageal reflux disease without esophagitis; Translations: [Gastroesophageal reflux disease without esophagitis] Onset: 08-06-2018 12-12-2018 Chronic Essential hypertension (20 sources) Essential hypertension; Translations: [Essential (primary) hypertension] Onset: 08-06-2018 01-09-2019 Chronic Nonspecific chest pain (20 sources) Chest pain, unspecified; Translations: [Chest pain] Onset: 10-09-2013 Episodic Osteoarthritis (20 sources) Osteoarthritis of hip; Translations: [Osteoarthritis of right hip joint] Onset: 01-19-2014 03-29-2017 Chronic Osteoarthritis (18 sources) Osteoarthritis of right hip joint; Translations: [Primary osteoarthritis of right hip] Onset: 01-19-2014 03-29-2017 Other aftercare (5 sources) Taking high risk medication; Translations: [Other long term care pharmacist (current) drug therapy] Onset: 07-29-2024 07-29-2024 Episodic Other aftercare (2 sources) Other long term care pharmacist (current) drug therapy; Translations: [Other [facility] (current) drug therapy] Onset: 07-29-2024 Episodic Other connective tissue disease (20 sources) Spasm; Translations: [Cramp and spasm] Onset: 01-19-2014 02-21-2017 Episodic Other connective tissue disease (6 sources) Lower limb spasticity; Translations: [Muscle spasms of both lower extremities] Onset: 03-06-2019 03-06-2019 Episodic Other connective tissue disease (2 sources) Other muscle spasm; Translations: [Other muscle spasm] Onset: 03-06-2019 Episodic Other connective tissue disease (2 sources) Cramp and spasm; Translations: [Cramp and spasm] Onset: 02-21-2017 Episodic Other nervous system disorders (20 sources) Chronic pain syndrome; Translations: [Chronic pain syndrome] Onset: 05-24-2017 Chronic Other nervous system disorders (2 sources) Other chronic pain; Translations: [Other chronic pain] Onset: 01-09-2019 Chronic Other nervous system disorders (1 source) Chronic pain syndrome; Translations: [Chronic pain syndrome] Onset: 05-24-2017 Chronic Other nervous system disorders (20 sources) Chronic pain syndrome; Translations: [Chronic pain syndrome] Onset: 05-24-2017 05-24-2017 Episodic Other non-traumatic joint disorders (20 sources) Chronic pain of left upper limb; Translations: [Pain in left shoulder] Onset: 12-13-2017 Episodic Other non-traumatic joint disorders (20 sources) Pain in right knee; Translations: [Pain in joint, lower leg] Onset: 12-11-2013 Episodic Other non-traumatic joint disorders (4 sources) Pain in left hip; Translations: [PAIN IN LEFT HIP] Onset: 11-14-2022 Episodic Other non-traumatic joint disorders (1 source) Hip pain; Translations: [Pain in left hip] 11-05-2023 Episodic Other non-traumatic joint disorders (8 sources) Pain in left shoulder; Translations: [Pain in joint, shoulder region] Onset: 11-29-2017 11-29-2017 Episodic Residual codes; unclassified (20 sources) Chronic pain; Translations: [Other chronic pain] Onset: 11-09-2017 01-09-2019 Chronic Residual codes; unclassified (13 sources) Tobacco use Episodic Spondylosis; intervertebral disc disorders; other back problems (20 sources) Spinal stenosis of lumbar region; Translations: [Low back pain] Onset: 12-11-2013 07-05-2017 Episodic Substance-related disorders (20 sources) Nicotine dependence; Translations: [Tobacco use disorder] Onset: 08-02-2017 08-02-2017 Chronic Thyroid disorders (20 sources) Acquired hypothyroidism; Translations: [Hypothyroidism] Onset: 04-18-2018 12-12-2018 Chronic Unclassified (1 source) Chronic pain of left upper limb; Translations: [Chronic left shoulder pain] Onset: 12-13-2017 01-09-2019 Past or Other Problems Problem Classification Problem Date Documented Date Episodic/Chronic Abdominal pain (2 sources) Flank pain; Translations: [Flank pain] Episodic Acute bronchitis (20 sources) Acute bronchitis; Translations: [Acute bronchitis, unspecified] Onset: 08-06-2018 01-09-2019 Episodic Administrative/socia l admission (20 sources) Admission statuses; Translations: [Encounter for long-term opiate analgesic use] Onset: 03-29-2017 03-29-2017 Episodic Genitourinary symptoms and ill-defined conditions (1 source) Increased frequency of urination; Translations: [Frequency of urination] Episodic Mood disorders (14 sources) Mood disorders Onset: 12-16-2020 Resolved: 12-16-2020 12-16-2020 Other aftercare (20 sources) [facility] (current) use of opiate analgesic; Translations: [Admission statuses] Onset: 03-29-2017 03-29-2017 Episodic Other aftercare (6 sources) Patient encounter status; Translations: [[facility] (current) use of opiate analgesic] Onset: 03-29-2017 03-29-2017 Episodic Other connective tissue disease (20 sources) Disorder of lower extremity; Translations: [Other muscle spasm] Onset: 03-06-2019 03-06-2019 Episodic Other non-traumatic joint disorders (20 sources) Knee pain; Translations: [Pain in right knee] Onset: 12-11-2013 02-21-2017 Episodic Other non-traumatic joint disorders (20 sources) Shoulder pain; Translations: [Pain in left shoulder] Onset: 11-29-2017 11-29-2017 Episodic Other screening for suspected conditions (not mental disorders or infectious disease) (12 sources) Abnormal electrocardiogram [ECG] [EKG] Onset: 10-07-2020 Episodic Other skin disorders (19 sources) Disorder of skin AND/OR subcutaneous tissue; Translations: [Disorder of the skin and subcutaneous tissue, unspecified] Onset: 02-10-2020 08-31-2020 Episodic Other skin disorders (1 source) Skin lesion; Translations: [Skin lesions] Episodic Residual codes; unclassified (20 sources) Family history of ischemic heart disease Onset: 10-09-2013 Episodic Residual codes; unclassified (14 sources) Family history of ischemic heart disease; Translations: [Family history of ischemic heart disease] Onset: 10-09-2013 Episodic Residual codes; unclassified (13 sources) Family history of ischemic heart disease and other diseases of the circulatory system Onset: 10-09-2013 Episodic Unclassified (1 source) Encounter for long-term opiate analgesic use Unclassified (2 sources) Onset: 06-02-2021 06-02-2021 Results Test Name Value Interpretation Reference Range Facility Urine Cultureon 02-17-2025 Bacteria identified Cx Nom (U) 20,000 colonies/ml mixed bacterial skin contaminants including mixed gram negative bacilli - 2 Days PERFORMED BY: [place] [address] PATHOLOGIST MAT MAKER MAXI OZUNA M.D. Normal [facility] Comment on above: Performed By: #### C UU #### [address] Laboratory - Chemistry and C hemistry - challengeon 09-09-2024 Anion gap [Moles/Vol] 15 mmol/L Invalid Interpretation Code 10-20 [facility] Calcium [Mass/Vol] 10.0 mg/dL Invalid Interpretation Code 8.5-10.8 [facility] Chloride [Moles/Vol] 93.0 mmol/L Invalid Interpretation Code 100-112 [facility] Cholesterol [Mass/Vol] 139.0 mg/dL Invalid Interpretation Code 0-200 [facility] Cholesterol in HDL [Mass/Vol] 45.0 mg/dL Invalid Interpretation Code 50-100 [facility] Cholesterol in LDL [Mass/Vol] 66.0 mg/dL Invalid Interpretation Code 0-130 [facility] Cholesterol in VLDL [Mass/Vol] 28.0 mg/dL Invalid Interpretation Code 0-39 [facility] Cholesterol.total/C holesterol in HDL [Mass ratio] 3 {ratio} Invalid Interpretation Code [facility] CO2 [Moles/Vol] 30.0 mmol/L Invalid Interpretation Code 23-30 [facility] Creatinine [Mass/Vol] 0.50 mg/dL Invalid Interpretation Code 0.5-1.5 [facility] Glucose [Mass/Vol] 137.0 mg/dL Invalid Interpretation Code 80-117 [facility] Potassium [Moles/Vol] 5.0 mmol/L Invalid Interpretation Code 3.5-5.3 [facility] Sodium [Moles/Vol] 133.0 mmol/L Invalid Interpretation Code 135-148 [facility] Triglyceride [Mass/Vol] 140.0 mg/dL Invalid Interpretation Code 30-150 [facility] Urea nitrogen [Mass/Vol] 7.0 mg/dL Invalid Interpretation Code 7-25 [facility] Urea nitrogen/Creatinine [Mass ratio] 14 mg/mg Invalid Interpretation Code 6-20 [facility] Laboratory - Hematology and Cell countson 09-09-2024 Erythrocyte distribution width (RBC) [Ratio] 14.60 % Invalid Interpretation Code 11.5-15.5 [facility] Hematocrit (Bld) [Volume fraction] 42.80 % Invalid Interpretation Code 35.7-47.1 [facility] Hemoglobin (Bld) [Mass/Vol] 13.60 g/dL Invalid Interpretation Code 11.9-15.7 [facility] MCH (RBC) [Entitic mass] 28.30 pg Invalid Interpretation Code 23.2-33.3 [facility] MCHC (RBC) [Mass/Vol] 31.80 g/dL Invalid Interpretation Code 32.0-36.0 [facility] MCV (RBC) [Entitic vol] 89.20 fL Invalid Interpretation Code 83.4-101.4 [facility] Platelet mean volume (Bld) [Entitic vol] 9.10 fL Invalid Interpretation Code 8.3-11.5 [facility] Platelets (Bld) [#/Vol] 271.0 10*3/uL Invalid Interpretation Code 150-400 [facility] RBC (Bld) [#/Vol] 4.80 10*6/uL Invalid Interpretation Code 3.72-5.24 [facility] WBC (Bld) [#/Vol] 7.90 10*3/uL Invalid Interpretation Code 3.9-10.3 [facility] No Panel Informationon 09-09 106 Invalid Interpretation Code [facility] No Panel Informationon 08-08 Tobacco smoking status Current Tobacco User Invalid Interpretation Code [facility] No Panel Informationon 05-18 Tobacco smoking status Current Tobacco User Invalid Interpretation Code [facility] Otheron 02-05-2020 Interpretation and review of laboratory results Abnormal [facility] POCT URINALYSIS DIPSTICK NON AUTOMATEDon 02-05-2020 Amorphous sediment LM Ql (Urine sed) [facility] Appearance (Body fld) clear [facility] Bacteria LM Ql (Urine sed) [facility] Bilirubin Ql (U) Negative [facility] Casts LM.LPF (Urine sed) [#/Area] [facility] Color (U) yellow [facility] Crystals LM Nom (Urine sed) [facility] Epithelial cells.squamous LM.HPF (Urine sed) [#/Area] [facility] Flow cytometry specialist review Ilya (Unsp spec) [Interp] [facility] Interpretation and review of laboratory results Normal [facility] Ketones [Mass/Vol] Negative mg/dL [facility] Leukocyte esterase Qn (U) [facility] Leukocyte esterase Test strip Ql (U) Negative [facility] Nitrite Ql (U) Negative [facility] TH pH (U) 5 [pH] [facility] POCT GLUCOSE, URINE Negative mg/dL [facility] Protein Ql (U) Negative mg/dL [facility] TH RBC LM.HPF (Urine sed) [#/Area] [facility] RBC Ql (U) Negative [facility] Specific gravity (U) [Rel density] 1.025 [facility] Transitional cells LM Ql (Urine sed) [facility] Urobilinogen (U) [Mass/Vol] 0.2 [facility] WBC LM.HPF (Urine sed) [#/Area] [facility] URINALYSIS, MACROon 02-05-20 20 Bilirubin Ql (U) Negative NEGATIVE [facility] Clarity (U) CLEAR CLEAR [facility] Color (U) DARK YELLOW Abnormal YELLOW [facility] Glucose Test strip (U) [Mass/Vol] Negative NEGATIVE mg/dl [facility] Hemoglobin Ql (U) Negative [facility]IVE [facility] Ketones (U) [Mass/Vol] Negative NEGATIVE mg/dl [facility] Leukocyte esterase Test strip Ql (U) Negative NEGATIVE [facility] Comment on above: Testing performed at [place], [place] [address] Nitrite Ql (U) Negative NEGATIVE [facility] pH (U) 5.5 [pH] [facility] Protein Ql (U) Negative NEGATIVE mg/dl [facility] Specific gravity (U) [Rel density] 1.020 [facility] Urobilinogen (U) [Mass/Vol] 0.2 [facility] URINE MICROSCOPICon 02-05-20 20 Bacteria LM.HPF (Urine sed) [#/Area] TRACE Abnormal NEGATIVE [facility] Casts LM.LPF (Urine sed) [#/Area] NONE NONE /LPF [facility] Crystals LM Nom (Urine sed) NONE NONE [facility] Epithelial cells LM Ql (Urine sed) 1 TO 5 /HPF [facility] Mucus Ql (Urine sed) Negative NEGATIVE [facility] RBC LM.HPF (Urine sed) [#/Area] Negative NEGATIVE /HPF [facility] Urine sediment comments LM Ilya (Urine sed) CULTURE CRITERIA NOT MET, NO CULTURE PERFORMED. [facility] Comment on above: Testing performed at [place], [place] [address] WBC LM.HPF (Urine sed) [#/Area] Negative NEGATIVE /HPF [facility] Physician Referralon 020 Physician Referral [phone] [id number] Normal [facility] XR SPINE LUMBOSACRAL 5 VIEWS on 10-24-2018 XR SPINE LUMBOSACRAL 5 VIEWS XR SPINE LUMBOSACRAL 5 VIEWS CLINICAL STATEMENT: Chronic low back pain. COMPARISON: None. TECHNIQUE: AP and lateral views with a lateral view of the lumbosacral junction. FINDINGS: There is severe facet joint osteoarthritis at L4-L5. There is also moderate facet osteoarthritis L5-S1. There is a grade 1 anterolisthesis L4 on L5 measuring 7 mm. The vertebral bodies are maintained in height. There is moderate narrowing of the L5-S1 disc space and mild narrowing of the remaining intervertebral disc spaces associated with mild to moderate degenerative endplate spondylosis and endplate sclerosis. There is no obvious osseous destructive lesion. On the AP view, there is a 9 mm calcification overlying the upper pole of the left kidney, possibly representing a stone. IMPRESSION: 1. No acute osseous abnormality. 2. Moderate to severe L4-L5 and L5-S1 facet osteoarthritis with a grade 1 degenerative anterolisthesis L4 on L5. 3. Multilevel mild to moderate degenerative disc changes. 4. Possible 9 mm upper pole left renal stone. Normal [facility] IMPRESSION: 1. No acute osseous abnormality. 2. Moderate to severe L4-L5 and L5-S1 facet osteoarthritis with a grade 1 degenerative anterolisthesis L4 on L5. 3. Multilevel mild to moderate degenerative disc changes. 4. Possible 9 mm upper pole left renal stone. [facility] SP[facility] LUMBOSACRAL 5 VIEWS CLINICAL STATEMENT: Chronic low back pain. COMPARISON: None. TECHNIQUE: AP and lateral views with a lateral view of the lumbosacral junction. FINDINGS: There is severe facet joint osteoarthritis at L4-L5. There is also moderate facet osteoarthritis L5-S1. There is a grade 1 anterolisthesis L4 on L5 measuring 7 mm. The vertebral bodies are maintained in height. There is moderate narrowing of the L5-S1 disc space and mild narrowing of the remaining intervertebral disc spaces associated with mild to moderate degenerative endplate spondylosis and endplate sclerosis. There is no obvious osseous destructive lesion. On the AP view, there is a 9 mm calcification overlying the upper pole of the left kidney, possibly representing a stone. [facility] User, Interfaces - 10/24/2018 4:09 PM EDT XR SPINE LUMBOSACRAL 5 VIEWS CLINICAL STATEMENT: Chronic low back pain. COMPARISON: None. TECHNIQUE: AP and lateral views with a lateral view of the lumbosacral junction. FINDINGS: There is severe facet joint osteoarthritis at L4-L5. There is also moderate facet osteoarthritis L5-S1. There is a grade 1 anterolisthesis L4 on L5 measuring 7 mm. The vertebral bodies are maintained in height. There is moderate narrowing of the L5-S1 disc space and mild narrowing of the remaining intervertebral disc spaces associated with mild to moderate degenerative endplate spondylosis and endplate sclerosis. There is no obvious osseous destructive lesion. On the AP view, there is a 9 mm calcification overlying the upper pole of the left kidney, possibly representing a stone. IMPRESSION IMPRESSION: 1. No acute osseous abnormality. 2. Moderate to severe L4-L5 and L5-S1 facet osteoarthritis with a grade 1 degenerative anterolisthesis L4 on L5. 3. Multilevel mild to moderate degenerative disc changes. 4. Possible 9 mm upper pole left renal [place] [facility] 02-01-2018 Cholesterol [Mass/Vol] 147.0 mg/dL Invalid Interpretation Code 0-200 [facility] Cholesterol in HDL [Mass/Vol] 38.0 mg/dL Invalid Interpretation Code 50-100 [facility] Cholesterol in LDL [Mass/Vol] 61.0 mg/dL Invalid Interpretation Code 0-130 [facility] Triglyceride [Mass/Vol] 241.0 mg/dL Invalid Interpretation Code 30-150 [facility] Otheron 02-01-2018 Cholesterol in VLDL [Mass/Vol] 48.0 mg/dL Invalid Interpretation Code 0-39 [facility] Cholesterol.total/C holesterol in HDL [Mass ratio] 4 {ratio} Invalid Interpretation Code [facility] Hemat[facility] 10-13-2013 Hematocrit (Bld) [Volume fraction] 46.0 % Invalid Interpretation Code 35.7-47.1 [facility] Hemoglobin (Bld) [Mass/Vol] 15.30 g/dL Invalid Interpretation Code 11.9-15.7 [facility] MCH (RBC) [Entitic mass] 30.0 pg Invalid Interpretation Code 23.2-33.3 [facility] MCV (RBC) [Entitic vol] 90.40 fL Invalid Interpretation Code 82.0-98.4 [facility] Platelets (Bld) [#/Vol] 218.0 10*3/uL Invalid Interpretation Code 139-350 [facility] RBC (Bld) [#/Vol] 5.080 10*6/uL Invalid Interpretation Code 3.72-5.24 [facility] WBC (Bld) [#/Vol] 11.30 10*3/uL Invalid Interpretation Code 3.9-10.3 [facility] Metabolic Panelon 10-13-2013 Anion gap [Moles/Vol] 16 mmol/L Invalid Interpretation Code 10-20 [facility] Calcium [Mass/Vol] 9.50 mg/dL Invalid Interpretation Code 8.5-10.8 [facility] Chloride [Moles/Vol] 100 mmol/L Invalid Interpretation Code 100-112 [facility] CO2 [Moles/Vol] 25 mmol/L Invalid Interpretation Code 23-30 [facility] Creatinine [Mass/Vol] 0.50 mg/dL Invalid Interpretation Code 0.5-1.5 [facility] GFR/1.73 sq M predicted among non-blacks MDRD (S/P/Bld) [Vol rate/Area] 130 mL/min/{1.73_m2} Invalid Interpretation Code [facility] Glucose [Mass/Vol] 92.0 mg/dL Invalid Interpretation Code 80-117 [facility] Potassium [Moles/Vol] 3.9 mmol/L Invalid Interpretation Code 3.5-5.3 [facility] Sodium [Moles/Vol] 137 mmol/L Invalid Interpretation Code 135-148 [facility] Urea nitrogen [Mass/Vol] 10.0 mg/dL Invalid Interpretation Code 7-25 [facility] Urea nitrogen/Creatinine [Mass ratio] 20 mg/mg Invalid Interpretation Code 6-20 [facility] Otheron 10-13-2013 Erythrocyte distribution width (RBC) [Ratio] 12.70 % Invalid Interpretation Code 11.5-15.5 [facility] MCHC (RBC) [Mass/Vol] 33.20 g/dL Invalid Interpretation Code 32.0-36.0 [facility] Platelet mean volume (Bld) [Entitic vol] 7.90 fL Invalid Interpretation Code 7.4-10.4 [facility] Vital Signs Date Time Vital Sign Value Performing Clinician Facility 01-22-2025 11:54-0400 Body mass index (BMI) [Ratio] 28.46 kg/m2 Ede Richard EMPLOYEE COUNSELOR-GERIATRIC NURSE Work Phone: [facility] 01-22-2025 11:54-0400 Body weight 81.19 kg Ede Bairesnton EMPLOYEE COUNSELOR-GERIATRIC NURSE Work Phone: [facility] 01-22-2025 11:54-0400 Diastolic blood pressure 78 mm[Hg] Ede Bairesnton EMPLOYEE COUNSELOR-GERIATRIC NURSE Work Phone: [facility] 01-22-2025 11:54-0400 Heart rate 70 /min Ede Mendozaon EMPLOYEE COUNSELOR-GERIATRIC NURSE Work Phone: [employer] [facility] 01-22-2025 11:54-0400 SaO2% (BldA) [Mass fraction] 98 % Ede Jose Manuel EMPLOYEE COUNSELOR-GERIATRIC NURSE Work Phone: [facility] 01-22-2025 11:54-0400 Systolic blood pressure 138 mm[Hg] Ede Jose Manuel EMPLOYEE COUNSELOR-GERIATRIC NURSE Work Phone: [facility] 10-23-2024 10:06-0400 Body mass index (BMI) [Ratio] 29.41 kg/m2 Ede Jose Manuel EMPLOYEE COUNSELOR-GERIATRIC NURSE Work Phone: [facility] 10-23-2024 10:06-0400 Body weight 83.92 kg Ede Bairesnton EMPLOYEE COUNSELOR-GERIATRIC NURSE Work Phone: [facility] 10-23-2024 10:06-0400 Diastolic blood pressure 68 mm[Hg] Ede Richard EMPLOYEE COUNSELOR-GERIATRIC NURSE Work Phone: [facility] 10-23-2024 10:06-0400 Heart rate 62 /min Ede Richard EMPLOYEE COUNSELOR-GERIATRIC NURSE Work Phone: [facility] 10-23-2024 10:06-0400 SaO2% (BldA) [Mass fraction] 96 % Ede Richard EMPLOYEE COUNSELOR-GERIATRIC NURSE Work Phone: [facility] 10-23-2024 10:06-0400 Systolic blood pressure 120 mm[Hg] Ede Richard EMPLOYEE COUNSELOR-GERIATRIC NURSE Work Phone: [facility] 09-09-2024 15:53-0500 Diastolic blood pressure 74 mm[Hg] Marcelo [employer] 09-09-2024 15:53-0500 Systolic blood pressure 150 mm[Hg] Marcelo [employer] 09-09-2024 15:38-0500 Body height 168.91 cm Marcelo [employer] [facility] [employer] 09-09-2024 15:38-0500 Body mass index (BMI) [Ratio] 28.46 kg/m2 Marcelo [employer] [facility] 09-09-2024 15:38-0500 Body surface area Derived from formula 1.95 m2 Marcelo [employer] 09-09-2024 15:38-0500 Body weight 81.19 kg Marcelo [employer] 09-09-2024 15:38-0500 Diastolic blood pressure 76 mm[Hg] Marcelo [employer] Irene [employer] 09-09-2024 15:38-0500 Diastolic blood pressure 74 mm[Hg] Marcelo [employer] Irene [employer] 09-09-2024 15:38-0500 Heart rate 66 /min Marcelo Hinojosa [employer] [facility] 09-09-2024 15:38-0500 Systolic blood pressure 150 mm[Hg] Marcelo Hinojosa [facility] 09-09-2024 15:38-0500 Systolic blood pressure 140 mm[Hg] Marcelo Hinojosa [facility] 07-29-2024 11:03-0500 Body mass index (BMI) [Ratio] 28.33 kg/m2 Ede Jose Manuel EMPLOYEE COUNSELOR-GERIATRIC NURSE Work Phone: [employer] 07-29-2024 11:03-0500 Body weight 80.83 kg Ede Jose Manuel EMPLOYEE COUNSELOR-GERIATRIC NURSE Work Phone: [facility] 07-29-2024 11:03-0500 Diastolic blood pressure 66 mm[Hg] Ede Jose Manuel EMPLOYEE COUNSELOR-GERIATRIC NURSE Work Phone: [employer] 07-29-2024 11:03-0500 Heart rate 66 /min Ede Jose Manuel EMPLOYEE COUNSELOR-GERIATRIC NURSE Work Phone: [employer] 07-29-2024 11:03-0500 SaO2% (BldA) [Mass fraction] 98 % Ede Jose Manuel EMPLOYEE COUNSELOR-GERIATRIC NURSE Work Phone: [facility] 07-29-2024 11:03-0500 Systolic blood pressure 118 mm[Hg] Ede Jose Manuel EMPLOYEE COUNSELOR-GERIATRIC NURSE Work Phone: [facility] 04-28-2024 10:08-0400 Body mass index (BMI) [Ratio] 28.84 kg/m2 Ede Jose Manuel EMPLOYEE COUNSELOR-GERIATRIC NURSE Work Phone: [employer] 04-28-2024 10:08-0400 Body weight 82.28 kg Ede Jose Manuel EMPLOYEE COUNSELOR-GERIATRIC NURSE Work Phone: [employer] 04-28-2024 10:08-0400 Diastolic blood pressure 64 mm[Hg] Ede Jose Manuel EMPLOYEE COUNSELOR-GERIATRIC NURSE Work Phone: [facility] 04-28-2024 10:08-0400 Heart rate 84 /min Ede Jose Manuel EMPLOYEE COUNSELOR-GERIATRIC NURSE Work Phone: [facility] 04-28-2024 10:08-0400 SaO2% (BldA) [Mass fraction] 94 % Ede Jose Manuel EMPLOYEE COUNSELOR-GERIATRIC NURSE Work Phone: [facility] 04-28-2024 10:08-0400 Systolic blood pressure 108 mm[Hg] Ede Jose Manuel EMPLOYEE COUNSELOR-GERIATRIC NURSE Work Phone: [facility] 01-31-2024 10:37-0400 Body height 168.9 cm Ede Jose Manuel EMPLOYEE COUNSELOR-GERIATRIC NURSE Work Phone: [email or web address] [facility] 01-31-2024 10:37-0400 Body mass index (BMI) [Ratio] 29.73 kg/m2 Ede Jose Manuel EMPLOYEE COUNSELOR-GERIATRIC NURSE Work Phone: [email or web address] [facility] 01-31-2024 10:37-0400 Body weight 84.82 kg Ede Jose Manuel EMPLOYEE COUNSELOR-GERIATRIC NURSE Work Phone: [facility] 01-31-2024 10:37-0400 Diastolic blood pressure 74 mm[Hg] Ede Jose Manuel EMPLOYEE COUNSELOR-GERIATRIC NURSE Work Phone: [facility] 01-31-2024 10:37-0400 Heart rate 63 /min Ede Jose Manuel EMPLOYEE COUNSELOR-GERIATRIC NURSE Work Phone: [facility] 01-31-2024 10:37-0400 Respiratory rate 20 /min Ede Jose Manuel EMPLOYEE COUNSELOR-GERIATRIC NURSE Work Phone: [employer] [facility] 01-31-2024 10:37-0400 SaO2% (BldA) [Mass fraction] 95 % Ede Jose Manuel EMPLOYEE COUNSELOR-GERIATRIC NURSE Work Phone: [facility] 01-31-2024 10:37-0400 Systolic blood pressure 124 mm[Hg] Ede Jose Manuel EMPLOYEE COUNSELOR-GERIATRIC NURSE Work Phone: [facility] 11-05-2023 10:18-0400 Body mass index (BMI) [Ratio] 30.56 kg/m2 Ede Richard EMPLOYEE COUNSELOR-GERIATRIC NURSE Work Phone: [facility] 11-05-2023 10:18-0400 Body weight 87.18 kg Ede Richard EMPLOYEE COUNSELOR-GERIATRIC NURSE Work Phone: [facility] 11-05-2023 10:18-0400 Diastolic blood pressure 62 mm[Hg] Ede Richard EMPLOYEE COUNSELOR-GERIATRIC NURSE Work Phone: [facility] 11-05-2023 10:18-0400 Heart rate 83 /min Ede Richard EMPLOYEE COUNSELOR-GERIATRIC NURSE Work Phone: [facility] 11-05-2023 10:18-0400 SaO2% (BldA) [Mass fraction] 95 % Ede Richard EMPLOYEE COUNSELOR-GERIATRIC NURSE Work Phone: [employer] 11-05-2023 10:18-0400 Systolic blood pressure 118 mm[Hg] Ede Richard EMPLOYEE COUNSELOR-GERIATRIC NURSE Work Phone: [employer] 05-18-2023 16:18-0400 Body height 169.16 cm Marcelo [employer] [facility] 05-18-2023 16:18-0400 Body mass index (BMI) [Ratio] 29.48 kg/m2 Marcelo [employer] [facility] 05-18-2023 16:18-0400 Body surface area Derived from formula 1.99 m2 Marcelo [employer] [facility] 05-18-2023 16:18-0400 Body weight 84.37 kg Marcelo Ashish [facility] 05-18-2023 16:18-0400 Diastolic blood pressure 88 mm[Hg] Marcelo Ashish [facility] 05-18-2023 16:18-0400 Diastolic blood pressure 90 mm[Hg] Marcelo Hinojosa [facility] 05-18-2023 16:18-0400 Heart rate 60 /min Marcelo Hinojosa [facility] 05-18-2023 16:18-0400 Systolic blood pressure 144 mm[Hg] Marcelo Hinojosa [facility] 04-02-2023 09:06-0400 Body mass index (BMI) [Ratio] 29.6 kg/m2 Yoli Romero MD Work Phone: [employer] 04-02-2023 09:06-0400 Body weight 84.46 kg Yoli Romero MD Work Phone: [facility] 04-02-2023 09:06-0400 Diastolic blood pressure 84 mm[Hg] Yoli Romero MD Work Phone: [facility] 04-02-2023 09:06-0400 Heart rate 77 /min Yoli Romero MD Work Phone: [facility] 04-02-2023 09:06-0400 SaO2% (BldA) [Mass fraction] 99 % Yoli Romero MD Work Phone: [facility] 04-02-2023 09:06-0400 Systolic blood pressure 136 mm[Hg] Yoli Romero MD Work Phone: [facility] 01-04-2023 10:29-0400 Body mass index (BMI) [Ratio] 28.97 kg/m2 Yoli Romero MD Work Phone: [facility] 01-04-2023 10:29-0400 Body temperature 97.2 [degF] Yoli Romero MD Work Phone: [facility] 01-04-2023 10:29-0400 Body weight 82.64 kg Yoli Romero MD Work Phone: [facility] 01-04-2023 10:29-0400 Diastolic blood pressure 76 mm[Hg] Yoli Romero MD Work Phone: [facility] 01-04-2023 10:29-0400 Heart rate 74 /min Yoli Romero MD Work Phone: [facility] 01-04-2023 10:29-0400 SaO2% (BldA) [Mass fraction] 94 % Yoli Romero MD Work Phone: [facility] 01-04-2023 10:29-0400 Systolic blood pressure 126 mm[Hg] Yoli Romero MD Work Phone: [facility] 10-05-2022 10:20-0400 Body mass index (BMI) [Ratio] 29.16 kg/m2 Yoli Romero MD Work Phone: [facility] 10-05-2022 10:20-0400 Body temperature 98.01 [degF] Yoli Romero MD Work Phone: [facility] 10-05-2022 10:20-0400 Body weight 83.19 kg Yoli Romero MD Work Phone: [facility] 10-05-2022 10:20-0400 Diastolic blood pressure 70 mm[Hg] Yoli Romero MD Work Phone: [facility] 10-05-2022 10:20-0400 Heart rate 62 /min Yoli Romero MD Work Phone: [facility] 10-05-2022 10:20-0400 SaO2% (BldA) [Mass fraction] 95 % Yoli Romero MD Work Phone: [facility] 10-05-2022 10:20-0400 Systolic blood pressure 118 mm[Hg] Yoli Romero MD Work Phone: [facility] 03-16-2022 09:28-0400 Body mass index (BMI) [Ratio] 27.54 kg/m2 Ede Richard EMPLOYEE COUNSELOR-GERIATRIC NURSE Work Phone: [facility] 03-16-2022 09:28-0400 Body temperature 98.71 [degF] Ede Rihcard EMPLOYEE COUNSELOR-GERIATRIC NURSE Work Phone: [facility] 03-16-2022 09:28-0400 Body weight 78.56 kg Ede Jose Manuel EMPLOYEE COUNSELOR-GERIATRIC NURSE Work Phone: [facility] 03-16-2022 09:28-0400 Diastolic blood pressure 62 mm[Hg] Ede Jose Manuel EMPLOYEE COUNSELOR-GERIATRIC NURSE Work Phone: [facility] 03-16-2022 09:28-0400 Heart rate 86 /min Ede Richard EMPLOYEE COUNSELOR-GERIATRIC NURSE Work Phone: [facility] 03-16-2022 09:28-0400 SaO2% (BldA) [Mass fraction] 95 % Ede Richard EMPLOYEE COUNSELOR-GERIATRIC NURSE Work Phone: [facility] 03-16-2022 09:28-0400 Systolic blood pressure 112 mm[Hg] Ede Richard EMPLOYEE COUNSELOR-GERIATRIC NURSE Work Phone: [facility] 12-08-2021 10:54-0400 Body mass index (BMI) [Ratio] 28.11 kg/m2 Yoil Romero MD Work Phone: [facility] 12-08-2021 10:54-0400 Body temperature 98.4 [degF] Yoli Romero MD Work Phone: [facility] 12-08-2021 10:54-0400 Body weight 80.2 kg Yoli Romero MD Work Phone: [facility] 12-08-2021 10:54-0400 Diastolic blood pressure 70 mm[Hg] Yoli Romero MD Work Phone: [facility] 12-08-2021 10:54-0400 Heart rate 83 /min Yoli Romero MD Work Phone: [facility] 12-08-2021 10:54-0400 SaO2% (BldA) [Mass fraction] 94 % Yoli Romero MD Work Phone: [facility] 12-08-2021 10:54-0400 Systolic blood pressure 108 mm[Hg] Yoli Romero MD Work Phone: [facility] 10-06-2021 10:54-0400 Body mass index (BMI) [Ratio] 29.06 kg/m2 Yoli Romero MD Work Phone: [facility] 10-06-2021 10:54-0400 Body temperature 97.9 [degF] Yoli Romero MD Work Phone: [facility] 10-06-2021 10:54-0400 Body weight 82.92 kg Yoli Romero MD Work Phone: [facility] 10-06-2021 10:54-0400 Diastolic blood pressure 62 mm[Hg] Yoli Romero MD Work Phone: [facility] 10-06-2021 10:54-0400 Heart rate 64 /min Yoli Romero MD Work Phone: [facility] 10-06-2021 10:54-0400 SaO2% (BldA) [Mass fraction] 91 % Yoli Romero MD Work Phone: [facility] 10-06-2021 10:54-0400 Systolic blood pressure 92 mm[Hg] Yoli Romero MD Work Phone: [facility] 07-07-2021 10:57-0500 Body mass index (BMI) [Ratio] 29.83 kg/m2 Yoli Romero MD Work Phone: [facility] 07-07-2021 10:57-0500 Body temperature 97.7 [degF] Yoli Romero MD Work Phone: [facility] 07-07-2021 10:57-0500 Body weight 85.09 kg Yoli Romero MD Work Phone: [facility] 07-07-2021 10:57-0500 Diastolic blood pressure 62 mm[Hg] Yoli Romero MD Work Phone: [facility] 07-07-2021 10:57-0500 Heart rate 72 /min Yoli Romero MD Work Phone: [facility] 07-07-2021 10:57-0500 SaO2% (BldA) [Mass fraction] 95 % Yoli Romero MD Work Phone: [facility] 07-07-2021 10:57-0500 Systolic blood pressure 98 mm[Hg] Yoli Romero MD Work Phone: [facility] 06-02-2021 11:51-0500 Body mass index (BMI) [Ratio] 29.79 kg/m2 Yoli Romero MD Work Phone: [facility] 06-02-2021 11:51-0500 Body temperature 96.69 [degF] Yoli Romero MD Work Phone: [facility] 06-02-2021 11:51-0500 Body weight 85 kg Yoli Romero MD Work Phone: [facility] 06-02-2021 11:51-0500 Diastolic blood pressure 64 mm[Hg] Yoli Romero MD Work Phone: [facility] 06-02-2021 11:51-0500 Heart rate 70 /min Yoli Romero MD Work Phone: [facility] 06-02-2021 11:51-0500 SaO2% (BldA) [Mass fraction] 96 % Yoli Romero MD Work Phone: [facility] 06-02-2021 11:51-0500 Systolic blood pressure 104 mm[Hg] Yoli Romero MD Work Phone: [facility] 05-24-2021 14:07-0400 Body height 169.16 cm Marcelo Hinojosa [facility] 05-24-2021 14:07-0400 Body mass index (BMI) [Ratio] 29.32 kg/m2 Marcelo Hinojosa [facility] 05-24-2021 14:07-0400 Body surface area Derived from formula 1.99 m2 Marcelo Ashish [facility] 05-24-2021 14:07-0400 Body weight 83.92 kg Marcelo Ashish [facility] 05-24-2021 14:07-0400 Diastolic blood pressure 74 mm[Hg] Marcelo Hinojosa [facility] 05-24-2021 14:07-0400 Diastolic blood pressure 70 mm[Hg] Marcelo Ashish [facility] 05-24-2021 14:07-0400 Heart rate 68 /min Marcelo Hinojosa [facility] 05-24-2021 14:07-0400 Systolic blood pressure 116 mm[Hg] Marcelo Ashish [facility] 05-24-2021 14:07-0400 Systolic blood pressure 114 mm[Hg] Marcelo Ashish [facility] 02-17-2021 11:37-0400 Body mass index (BMI) [Ratio] 29.54 kg/m2 Yoli Romero MD Work Phone: [facility] 02-17-2021 11:37-0400 Body weight 84.28 kg Yoli Romero MD Work Phone: [facility] 02-17-2021 11:37-0400 Diastolic blood pressure 60 mm[Hg] Yoli Romero MD Work Phone: [facility] 02-17-2021 11:37-0400 Heart rate 73 /min Yoli Romero MD Work Phone: [facility] 02-17-2021 11:37-0400 SaO2% (BldA) [Mass fraction] 96 % Yoli Romero MD Work Phone: [facility] 02-17-2021 11:37-0400 Systolic blood pressure 98 mm[Hg] Yoli Romero MD Work Phone: [facility] 01-13-2021 10:25-0400 Body mass index (BMI) [Ratio] 29.67 kg/m2 Yoli Romero MD Work Phone: [facility] 01-13-2021 10:25-0400 Body weight 84.64 kg Yoli Romero MD Work Phone: [facility] 01-13-2021 10:25-0400 Diastolic blood pressure 58 mm[Hg] Yoli Romero MD Work Phone: [facility] 01-13-2021 10:25-0400 Heart rate 70 /min Yoli Romero MD Work Phone: [facility] 01-13-2021 10:25-0400 SaO2% (BldA) [Mass fraction] 97 % Yoli Romero MD Work Phone: [facility] 01-13-2021 10:25-0400 Systolic blood pressure 98 mm[Hg] Yoli Romero MD Work Phone: [facility] 12-16-2020 09:38-0400 Body mass index (BMI) [Ratio] 30.18 kg/m2 Ede PORTER Work Phone: [facility] 12-16-2020 09:38-0400 Body weight 86.09 kg Ede Richard EMPLOYEE COUNSELOR-GERIATRIC NURSE Work Phone: [facility] 12-16-2020 09:38-0400 Diastolic blood pressure 58 mm[Hg] Ede Richard EMPLOYEE COUNSELOR-GERIATRIC NURSE Work Phone: [facility] 12-16-2020 09:38-0400 Heart rate 68 /min Ede Richard EMPLOYEE COUNSELOR-GERIATRIC NURSE Work Phone: [employer] [facility] 12-16-2020 09:38-0400 SaO2% (BldA) [Mass fraction] 95 % Ede Richard EMPLOYEE COUNSELOR-GERIATRIC NURSE Work Phone: [facility] 12-16-2020 09:38-0400 Systolic blood pressure 102 mm[Hg] Ede Richard EMPLOYEE COUNSELOR-GERIATRIC NURSE Work Phone: [facility] 10-05-2020 13:00-0400 BMI (Body Mass Index) 30.27 kg/m2 Marcelo Ashish [facility] 10-05-2020 13:00-0400 Body weight 86.64 kg Marcelo Hinojosa [facility] 10-05-2020 13:00-0400 BP Diastolic 64 mm[Hg] Marcelo Ashish [facility] 10-05-2020 13:00-0400 BP Diastolic 70 mm[Hg] Marcelo Ashish [employer] [place] [facility] 10-05-2020 13:00-0400 BP Systolic 114 mm[Hg] Marcelo Ashish [facility] 10-05-2020 13:00-0400 BP Systolic 120 mm[Hg] Marcelo Ashish [facility] 10-05-2020 13:00-0400 BSA (Body Surface Area) 2.02 m2 Marcelo Ashish [facility] 10-05-2020 13:00-0400 Height 169.16 cm Marcelo Irene [facility] 10-05-2020 13:00-0400 Pulse (Heart Rate) 72 /min Marcelo [facility] 09-30-2020 10:23-0500 BMI (Body Mass Index) 30.11 kg/m2 [facility] 09-30-2020 10:23-0500 Body weight 85.91 kg [facility] 09-30-2020 10:23-0500 BP Diastolic 58 mm[Hg] [facility] 09-30-2020 10:23-0500 BP Systolic 98 mm[Hg] [facility] 09-30-2020 10:23-0500 Pulse (Heart Rate) 64 /min [facility] 09-30-2020 10:23-0500 Pulse Oximetry 97 % [facility] 08-31-2020 10:18-0500 BMI (Body Mass Index) 30.21 kg/m2 [facility] 08-31-2020 10:18-0500 Body weight 86.18 kg [facility] 08-31-2020 10:18-0500 BP Diastolic 62 mm[Hg] [facility] 08-31-2020 10:18-0500 BP Systolic 106 mm[Hg] [facility] 08-31-2020 10:18-0500 Pulse (Heart Rate) 68 /min [facility] 08-31-2020 10:18-0500 Pulse Oximetry 98 % [facility] 06-24-2020 09:46-0500 BMI (Body Mass Index) 29.35 kg/m2 [facility] 06-24-2020 09:46-0500 Body weight 83.73 kg [facility] 06-24-2020 09:46-0500 BP Diastolic 60 mm[Hg] [facility] 06-24-2020 09:46-0500 BP Systolic 102 mm[Hg] [facility] 06-24-2020 09:46-0500 Pulse (Heart Rate) 76 /min [facility] 06-24-2020 09:46-0500 Pulse Oximetry 96 % [facility] 05-27-2020 09:39-0500 BMI (Body Mass Index) 30.14 kg/m2 [facility] 05-27-2020 09:39-0500 Body weight 86 kg [facility] 05-27-2020 09:39-0500 BP Diastolic 62 mm[Hg] [facility] 05-27-2020 09:39-0500 BP Systolic 100 mm[Hg] [facility] 05-27-2020 09:39-0500 Pulse (Heart Rate) 75 /min [facility] 05-27-2020 09:39-0500 Pulse Oximetry 94 % [facility] 04-22-2020 10:55-0400 BMI (Body Mass Index) 28.68 kg/m2 [facility] 04-22-2020 10:55-0400 Body [facility] 81.83 [facility] 04-22-2020 10:55-0400 BP Diastolic 62 mm[Hg] [facility] 04-22-2020 10:55-0400 BP Systolic 116 mm[Hg] [facility] 04-22-2020 10:55-0400 Pulse (Heart Rate) 60 /min [facility] 04-22-2020 10:55-0400 Pulse Oximetry 97 % [facility] 02-05-2020 10:32-0400 BMI (Body Mass Index) 29.06 kg/m2 [facility] 02-05-2020 10:32-0400 Body weight 82.92 kg [facility] 02-05-2020 10:32-0400 BP Diastolic 56 mm[Hg] [facility] 10:32-0400 BP Systolic 102 mm[Hg] [facility] 02-05-2020 10:32-0400 Pulse (Heart Rate) 76 /min Yoli [facility] 02-05-2020 10:32-0400 Pulse Oximetry 93 % [facility] 01-08-2020 09:48-0400 BMI (Body Mass Index) 30.05 kg/m2 [facility] 01-08-2020 09:48-0400 Body weight 85.73 kg [facility] [facility] 01-08-2020 09:48-0400 BP Diastolic 58 mm[Hg] [facility] [facility] 01-08-2020 09:48-0400 BP Systolic 110 mm[Hg] [facility] [facility] 01-08-2020 09:48-0400 Pulse (Heart Rate) 80 /min [facility] [facility] 01-08-2020 09:48-0400 Pulse Oximetry 97 % [facility] [facility] 10-09-2019 09:18-0400 BMI (Body Mass Index) 30.05 kg/m2 [facility] [facility] 10-09-2019 09:18-0400 Body weight 85.73 kg [facility] [facility] 10-09-2019 09:18-0400 BP Diastolic 62 mm[Hg] [facility] [facility] 10-09-2019 09:18-0400 BP Systolic 106 mm[Hg] [facility] [facility] 10-09-2019 09:18-0400 Pulse (Heart Rate) 80 /min Ede Jose Manuel [employer] [facility] 10-09-2019 09:18-0400 Pulse Oximetry 97 % Eed Jose Manuel [employer] [facility] 08-21-2019 09:16-0500 BMI (Body Mass Index) 29.57 kg/m2 Ede Jose Manuel [employer] [facility] 08-21-2019 09:16-0500 Body weight 84.37 kg Ede Jose Manuel [facility] [facility] 08-21-2019 09:16-0500 BP Diastolic 52 mm[Hg] Ede [facility] 08-21-2019 09:16-0500 BP Systolic 94 mm[Hg] [facility] 08-21-2019 09:16-0500 Pulse (Heart Rate) 79 /min [facility] 08-21-2019 09:16-0500 Pulse Oximetry 94 % [facility] 07-25-2019 08:54-0500 BMI (Body Mass Index) 30.18 kg/m2 [facility] 07-25-2019 08:54-0500 Body weight 86.09 kg [facility] 07-25-2019 08:54-0500 BP Diastolic 64 mm[Hg] [facility] 07-25-2019 08:54-0500 BP Systolic 116 mm[Hg] [facility] 07-25-2019 08:54-0500 Pulse (Heart Rate) 67 /min [facility] 07-25-2019 08:54-0500 Pulse Oximetry 95 % [facility] 06-26-2019 09:10-0500 BMI (Body Mass Index) 29.51 kg/m2 [facility] 06-26-2019 09:10-0500 Body weight 84.19 kg [facility] 06-26-2019 09:10-0500 BP Diastolic 66 mm[Hg] [facility] 06-26-2019 09:10-0500 BP Systolic 110 mm[Hg] [facility] 06-26-2019 09:10-0500 Pulse (Heart Rate) 78 /min [facility] 06-26-2019 09:10-0500 Pulse Oximetry 97 % [facility] 05-29-2019 10:02-0500 BMI (Body Mass Index) 29.6 kg/m2 [facility] 05-29-2019 10:02-0500 Body weight 84.46 kg [facility] 05-29-2019 10:02-0500 BP Diastolic 66 mm[Hg] [facility] 05-29-2019 10:02-0500 BP Systolic 108 mm[Hg] [facility] [employer] 05-29-2019 10:02-0500 Pulse (Heart Rate) 74 /min [facility] [employer] [facility] [employer] 05-29-2019 10:02-0500 Pulse Oximetry 92 % [facility] 05-01-2019 09:14-0400 BMI (Body Mass Index) 29.19 kg/m2 [facility] [employer] [facility] [employer] 05-01-2019 09:140400 Body weight 83.28 kg [facility] 05-01-2019 09:14-0400 BP Diastolic 56 mm[Hg] [facility] [employer] [facility] [employer] 05-01-2019 09:14-0400 BP Systolic 86 mm[Hg] [facility] [employer] [facility] [employer] 05-01-2019 09:14-0400 Pulse (Heart Rate) 70 /min [facility] [employer] [facility] [employer] 05-01-2019 09:140400 Pulse Oximetry 97 % [facility] [employer] [facility] [employer] 04-03-2019 09:25-0400 BMI (Body Mass Index) 29.75 kg/m2 [facility] [employer] [facility] [employer] 04-03-2019 09:25-0400 Body weight 84.87 kg [facility] [employer] [facility] [employer] 04-03-2019 09:25-0400 BP Diastolic 62 mm[Hg] [facility] 04-03-2019 09:25-0400 BP Systolic 118 mm[Hg] [facility] [employer] [facility] [employer] 04-03-2019 09:25-0400 Pulse (Heart Rate) 82 /min [facility] [employer] [facility] [employer] 04-03-2019 09:25-0400 Pulse Oximetry 97 % [facility] [employer] [facility] [employer] 03-06-2019 09:32-0400 BMI (Body Mass Index) 30.05 kg/m2 [facility] [employer] [facility] [employer] 03-06-2019 09:32-0400 Body weight 85.73 kg [facility] [employer] [facility] [employer] 03-06-2019 09:32-0400 BP Diastolic 60 mm[Hg] [facility] [employer] [facility] [employer] 03-06-2019 09:32-0400 BP Systolic 98 mm[Hg] [facility] [employer] [facility] [employer] 03-06-2019 09:32-0400 Pulse (Heart Rate) 82 /min [employer] 03-06-2019 09:32-0400 Pulse Oximetry 94 % [employer] 02-25-2019 15:21-0400 BMI (Body Mass Index) 29.76 kg/m2 Marcelo Hinojosa [employer] 02-25-2019 15:21-0400 Body weight 86.18 kg Marcelo Hinojosa IrenePetroDE 02-25-2019 15:21-0400 BP Diastolic 82 mm[Hg] Marcelo Hinojosa IrenePetroDE 02-25-2019 15:21-0400 BP Diastolic 76 mm[Hg] Marcelo Hinojosa [employer] 02-25-2019 15:21-0400 BP Systolic 134 mm[Hg] Marcelo Hinojosa [employer] 02-25-2019 15:21-0400 BP Systolic 128 mm[Hg] Marcelo Hinojosa [employer] 02-25-2019 15:21-0400 BSA (Body Surface Area) 2.02 m2 Marcelo Hinojosa Irene[facility] 02-25-2019 15:21-0400 Height 170.18 cm Marcelo Hinojosa IrenePetroDE 02-25-2019 15:21-0400 Pulse (Heart Rate) 80 /min Marcelo [facility] 02-06-2019 09:34-0400 BMI (Body Mass Index) 30.94 kg/m2 [employer] 02-06-2019 09:34-0400 Body weight 88.27 kg [employer] 02-06-2019 09:34-0400 BP Diastolic 66 mm[Hg] [employer] 02-06-2019 09:34-0400 BP Systolic 116 mm[Hg] [employer] 02-06-2019 09:34-0400 Pulse (Heart Rate) 80 /min [facility] 02-06-2019 09:34-0400 Pulse Oximetry 98 % [facility] 01-09-2019 09:59-0400 BMI (Body Mass Index) 32.34 kg/m2 [facility] 01-09-2019 09:59-0400 BP Diastolic 76 mm[Hg] [facility] 01-09-2019 09:59-0400 BP Systolic 130 mm[Hg] [facility] 01-09-2019 09:59-0400 Pulse (Heart Rate) 82 /min [facility] 01-09-2019 09:59-0400 Pulse Oximetry 94 % [facility] 01-09-2019 09:59-0400 Weight 92.26 kg [facility] 12-12-2018 09:53-0400 BMI (Body Mass Index) 33.58 kg/m2 [facility] 12-12-2018 09:53-0400 BP Diastolic 76 mm[Hg] [facility] 12-12-2018 09:53-0400 BP Systolic 130 mm[Hg] [facility] 12-12-2018 09:53-0400 Pulse (Heart Rate) 87 /min [facility] 12-12-2018 09:53-0400 Pulse Oximetry 92 % [facility] 12-12-2018 09:53-0400 Weight 95.8 kg [facility] 11-21-2018 11:16-0400 BMI (Body Mass Index) 34.37 kg/m2 [facility] 11-21-2018 11:16-0400 Body weight 98.07 kg [facility] 11-21-2018 11:16-0400 BP Diastolic 64 mm[Hg] [facility] 11-21-2018 11:16-0400 BP Systolic 118 mm[Hg] [facility] 11-21-2018 11:16-0400 Pulse (Heart Rate) 92 /[facility]-21-2018 11:16-0400 Pulse Oximetry 95 % Yoli Romero [facility] 10-24-2018 11:02-0400 BMI (Body Mass Index) 33.51 kg/m2 [facility] 10-24-2018 11:02-0400 BP Diastolic 70 mm[Hg] [facility] 10-24-2018 11:02-0400 BP Systolic 110 mm[Hg] [facility] 10-24-2018 11:02-0400 Pulse (Heart Rate) 99 /min [facility] 10-24-2018 11:02-0400 Pulse Oximetry 97 % [facility] 10-24-2018 11:02-0400 Weight 95.62 kg [facility] 08-29-2018 09:51-0500 BMI (Body Mass Index) 34.6 kg/m2 [facility] Work Phone: 08-29-2018 09:51-0500 BP Diastolic 70 mm[Hg] [facility] Work Phone: 08-29-2018 09:51-0500 BP Systolic 120 mm[Hg] [facility] Work Phone: 08-29-2018 09:51-0500 Pulse (Heart Rate) 85 /min [facility] Work Phone: 08-29-2018 09:51-0500 Pulse Oximetry 94 % [facility] Work Phone: 08-29-2018 09:51-0500 Weight 98.7 kg [facility] Work Phone: 06-27-2018 10:35-0500 BMI (Body Mass Index) 33.8 kg/m2 [facility] 06-27-2018 10:35-0500 BP Diastolic 70 mm[Hg] Yoli [facility] Work Phone: 06-27-2018 10:35-0500 BP Systolic 120 mm[Hg] Yoli [facility] Work Phone: 06-27-2018 10:35-0500 Pulse (Heart Rate) 99 /min Yoli [facility] Work Phone: 06-27-2018 10:35-0500 Pulse Oximetry 96 % Yoli [facility] Work Phone: 06-27-2018 10:35-0500 Weight 96.44 kg Yoli [facility] Work Phone: 02-01-2018 15:20-0400 BMI (Body Mass Index) 32 kg/m2 Marcelo [employer] 02-01-2018 15:20-0400 Body weight 92.68 kg Marcelo Hinojosa [employer] 02-01-2018 15:20-0400 BP Diastolic 56 mm[Hg] Marcelo [employer] 02-01-2018 15:20-0400 BP Diastolic 60 mm[Hg] Marcelo [employer] 02-01-2018 15:20-0400 BP Systolic 96 mm[Hg] Marcelo [employer] 02-01-2018 15:20-0400 BP Systolic 104 mm[Hg] Marcelo [employer] 02-01-2018 15:20-0400 BSA (Body Surface Area) 2.09 m2 Marcelo [employer] 02-01-2018 15:20-0400 Height 170.18 cm Marcelo BangPetroDE 02-01-2018 15:20-0400 Pulse (Heart Rate) 72 /min Marcelo Silva [employer] 01-31-2017 16:53-0400 BP Diastolic 58 mm[Hg] Marcelo BangPetroDE 01-31-2017 16:53-0400 BP Systolic 108 mm[Hg] Marcelo BangPet[employer]DE 01-31-2017 16:53-0400 Pulse (Heart Rate) 80 /min Marcelo Silva [employer] 01-31-2017 16:50-0400 BMI (Body Mass Index) 32.73 kg/m2 Marcelo Hinojosa [employer] 01-31-2017 16:50-0400 Body weight 94.8 kg Marcelo Hinojosa [employer] 01-31-2017 16:50-0400 BP Diastolic 66 mm[Hg] Marcelo Hinojosa [employer] 01-31-2017 16:50-0400 BP Systolic 116 mm[Hg] Marcelo Hinojosa Irene[employer] 01-31-2017 16:50-0400 BSA (Body Surface Area) 2.12 m2 Marcelo Hinojosa [employer] 01-31-2017 16:50-0400 Height 170.18 cm Marcelo Hinojosa [employer] 07-07-2016 15:38-0500 BMI (Body Mass Index) 33.2 kg/m2 Marcelo Hinojosa [employer] 07-07-2016 15:38-0500 Body weight 96.16 kg Marcelo Hinojosa [employer] 07-07-2016 15:38-0500 BP Diastolic 60 mm[Hg] Marcelo BangPetroDE 07-07-2016 15:38-0500 BP Diastolic 64 mm[Hg] Marcelo Irene [place] [employer] 07-07-2016 15:38-0500 BP Systolic 110 mm[Hg] Marcelo Banghard [employer] 07-07-2016 15:38-0500 BP Systolic 120 mm[Hg] Marcelo Hinojosa IrenePetroDE 07-07-2016 15:38-0500 BSA (Body Surface Area) 2.13 m2 Marcelo Hinojosa [employer] 07-07-2016 15:38-0500 Height 170.18 cm Marcelo Hinojosa IrenePetroDE 07-07-2016 15:38-0500 Pulse (Heart Rate) 68 /min Marcelo Irene [facility] 01-14-2016 15:21-0400 BP Diastolic 62 mm[Hg] [facility] 01-14-2016 15:21-0400 BP Systolic 116 mm[Hg] Marcelo Hionjosa Irene [employer] 01-14-2016 15:12-0400 BMI (Body Mass Index) 34.14 kg/m2 Marcelo Hinojosa IrenePetroDE 01-14-2016 15:12-0400 Body weight 98.88 kg Marcelo Hinojosa IrenePetroDE 01-14-2016 15:12-0400 BP Diastolic 70 mm[Hg] Marcelo Hinojosa [employer] 01-14-2016 15:12-0400 BP Systolic 112 mm[Hg] Marcelo Hinojosa [employer] 01-14-2016 15:12-0400 BSA (Body Surface Area) 2.16 m2 Marcelo Hinojosa [employer] 01-14-2016 15:12-0400 Height 170.18 cm Marcelo BangPetroDE 01-14-2016 15:12-0400 Pulse (Heart Rate) 76 /min Marcelo Silva [employer] 09-13-2015 17:20-0500 BP Diastolic 76 mm[Hg] Marcelo BangPetroDE 09-13-2015 17:20-0500 BP Systolic 118 mm[Hg] Marcelo Hinojosa [employer] 09-13-2015 17:20-0500 Pulse (Heart Rate) 76 /min Marcelo Silva [employer] 09-13-2015 17:18-0500 BMI (Body Mass Index) 33.52 kg/m2 Marcelo Hinojosa [employer] 09-13-2015 17:18-0500 Body weight 97.07 kg Marcelo Hinojosa [employer] 09-13-2015 17:18-0500 BP Diastolic 80 mm[Hg] Marcelo Hinojosa [employer] 09-13-2015 17:18-0500 BP Systolic 120 mm[Hg] Marcelo Hinojosa [employer] 09-13-2015 17:18-0500 BSA (Body Surface Area) 2.14 m2 Marcelo Hinojosa [employer] 09-13-2015 17:18-0500 Height 170.18 cm Marcelo Hinojosa [employer] 12-18-2014 16:56-0400 BMI (Body Mass Index) 32.54 kg/m2 Marcelo Hinojosa [employer] 12-18-2014 16:56-0400 Body weight 94.8 kg Marcelo Hinojosa [employer] 12-18-2014 16:56-0400 BP Diastolic 68 mm[Hg] [facility] [employer] [facility] 12-18-2014 16:56-0400 BP Diastolic 60 mm[Hg] Marcelo Irene [place] [employer] [facility] 12-18-2014 16:56-0400 BP Systolic 114 mm[Hg] Marcelo Hinojosa [facility] [employer] [facility] 12-18-2014 16:56-0400 BP Systolic 110 mm[Hg] Marcelo Hinojosa [facility] [employer] [facility] 12-18-2014 16:56-0400 BSA (Body Surface Area) 2.12 m2 Marcelo Hinojosa [facility] [employer] [facility] 12-18-2014 16:56-0400 Height 170.69 cm Marcelo Hinojosa [facility] [employer] [facility] 12-18-2014 16:56-0400 Pulse (Heart Rate) 72 /min Marcelo Irene [facility] [employer] [facility] 06-05-2014 14:19-0500 BMI (Body Mass Index) 30.9 kg/m2 Marcelo Hinojosa [facility] [employer] [facility] 06-05-2014 14:19-0500 Body weight 89.5 kg Marcelo Hinojosa [facility] [employer] [facility] 06-05-2014 14:19-0500 BP Diastolic 64 mm[Hg] Marcelo Hinojosa [facility] [employer] [facility] 06-05-2014 14:19-0500 BP Diastolic 66 mm[Hg] Marcelo Hinojosa [facility] [employer] [facility] 06-05-2014 14:19-0500 BP Systolic 110 mm[Hg] Marcelo Hinojosa [facility] [employer] [facility] 06-05-2014 14:19-0500 BP Systolic 112 mm[Hg] Marcelo Hinojosa [facility] [employer] [facility] 06-05-2014 14:19-0500 BSA (Body Surface Area) 2.06 m2 Marcelo [employer] 06-05-2014 14:19-0500 Height 170.18 cm Marcelo Irene [employer] 06-05-2014 14:19-0500 Pulse (Heart Rate) 72 /min Marcelo Silva [employer] [facility] 01-21-2014 16:16-0400 BMI (Body Mass Index) 32.11 kg/m2 Marcelo BairesncPetroDE 01-21-2014 16:16-0400 Body weight 92.99 kg Marcelo Irene [employer] 01-21-2014 16:16-0400 BP Diastolic 60 mm[Hg] Marcelo Bang[employer] 01-21-2014 16:16-0400 BP Diastolic 62 mm[Hg] Marcelo [facility] [employer] 01-21-2014 16:16-0400 BP Systolic 110 mm[Hg] Marcelo Bairesnc[facility] 01-21-2014 16:16-0400 BP Systolic 114 mm[Hg] Marcelo [employer] [facility] 01-21-2014 16:16-0400 BSA (Body Surface Area) 2.1 m2 Marcelo [employer] [facility] 01-21-2014 16:16-0400 Height 170.18 cm Marcelo Hinojosa IrenePetroDE 01-21-2014 16:16-0400 Pulse (Heart Rate) 66 /min Marcelo Silva [employer] 12-01-2013 17:22-0400 BMI (Body Mass Index) 31.79 kg/m2 Macrelo Hinojosa [employer]PetroDE 12-01-2013 17:22-0400 Body weight 92.08 kg [facility] [employer] [facility] 12-01-2013 17:22-0400 BP Diastolic 60 mm[Hg] [facility] [employer] [facility] 12-01-2013 17:22-0400 BP Diastolic 62 mm[Hg] [facility] [employer] [facility] 12-01-2013 17:22-0400 BP Systolic 100 mm[Hg] Marcelo Hinojosa [facility] [employer] 12-01-2013 17:22-0400 BP Systolic 104 mm[Hg] Marcelo Hinojosa [facility] [employer] [facility] 12-01-2013 17:22-0400 BSA (Body Surface Area) 2.09 m2 Marcelo Hinojosa [facility] [employer] [facility] 12-01-2013 17:22-0400 Height 170.18 cm Marcelo Hinojosa [facility] [employer] [facility] 12-01-2013 17:22-0400 Pulse (Heart Rate) 76 /min Marcelo Irene [facility] [employer] [facility] 10-13-2013 17:19-0400 BMI (Body Mass Index) 32.42 kg/m2 [facility] [employer] [facility] 10-13-2013 17:19-0400 Body weight 93.9 kg Marcelo Hinojosa [facility] [employer] [facility] 10-13-2013 17:19-0400 BP Diastolic 62 mm[Hg] Marcelo Hinojosa [facility] [employer] [facility] 10-13-2013 17:19-0400 BP Diastolic 66 mm[Hg] Marcelo Hinojosa [facility] [employer] 10-13-2013 17:19-0400 BP Systolic 124 mm[Hg] Marcelo Hinojosa [facility] [employer] [facility] 10-13-2013 17:19-0400 BP Systolic 114 mm[Hg] Marcelo Irene [employer] 10-13-2013 17:040 BSA (Body Surface Area) 2.11 m2 Marcelo Irene [employer] 10-13-2013 17:040 Height 170.18 cm Marcelo Irene [employer] 10-13-2013 17:040 Pulse (Heart Rate) 64 /min Marcelo [email or web address] Encounters Encounter Date Encounter Type Care Provider Facility Start: 02-17-2025 End: 02-17-2025 ambulatory Kylie Spear [facility] Work Phone: Start: 02-17-2025 End: 02-17-2025 Departed Referred Kylie Spear GERIATRIC NURSE -LAB [facility] Start: 01-22-2025 End: 01-22-2025 Office outpatient visit 25 minutes Ede Richard [employer] Work Phone: [facility] Comment on above: Chronic left shoulde r pain (Primary Dx); Chronic pain syndrome; Cigarette nicotine dependence without complication; High risk medication use; Chronic midline low back pain with right-sided sciatica; Muscle spasms of both lower extremities; Primary osteoarthritis of right hip; Right sided sciatica; Sciatica of right side; Spasm; Spinal stenosis of lumbar region, unspecified whether neurogenic claudication present; Chronic pain of both knees Start: 01-22-2025 ambulatory [facility] Start: 10-23-2024 End: 10-23-2024 Office outpatient visit 25 minutes Ede Richard EMPLOYEE COUNSELOR-GERIATRIC NURSE Work Phone: [facility] Comment on above: Cigarette nicotine d ependence without complication (Primary Dx); Right sided sciatica; Spinal stenosis of lumbar region, unspecified whether neurogenic claudication present; Chronic pain syndrome; Chronic pain of both knees; Chronic midline low back pain with right-sided sciatica; Other chronic pain; Atherosclerosis of coronary artery of paimiut heart without angina pectoris, unspecified vessel or lesion type; High risk medication use; Encounter for long-term opiate analgesic use Start: 10-23-2024 [facility] Start: 09-17-2024 End: 09-17-2024 [facility] Marcelo Hinojosa Other [facility] Office Start: 09-09-2024 Office outpatient vi sit 25 minutes Marcelo Hinojosa Other [facility] Office Start: 07-29-2024 End: 07-29-2024 Office outpatient visit 25 minutes Anahy Romero MD Work Phone: [facility] Comment on above: Spinal stenosis of l umbar region, unspecified whether neurogenic claudication present (Primary Dx); Chronic pain of both knees; Chronic midline low back pain with right-sided sciatica; Spasm; Chronic left shoulder pain; Chronic pain syndrome; Encounter for long-term opiate analgesic use; Cigarette nicotine dependence without complication Start: 07-29-2024 [facility] Start: 04-28-2024 [facility] Start: 04-28-2024 End: 04-28-2024 Office outpatient visit 25 minutes [facility] Zeferino Richard EMPLOYEE COUNSELOR-GERIATRIC NURSE Work Phone: [facility] Comment on above: Cigarette nicotine d ependence without complication (Primary Dx); Right sided sciatica; Spasm; Chronic midline low back pain without sciatica; Chronic pain syndrome; Spinal stenosis of lumbar region, unspecified whether neurogenic claudication present; Chronic pain of both knees; Chronic midline low back pain with right-sided sciatica Start: 01-31-2024 [facility] Start: 01-31-2024 End: 01-31-2024 Office outpatient visit 25 minutes Ede Richard EMPLOYEE COUNSELOR-GERIATRIC NURSE Work Phone: [facility] Comment on above: Chronic midline low back pain with right-sided sciatica (Primary Dx); Chronic left shoulder pain; Primary osteoarthritis of right hip; Right sided sciatica; Sciatica of right side; Spasm; Spinal stenosis of lumbar region, unspecified whether neurogenic claudication present; Chronic pain of both knees; Chronic pain syndrome; Encounter for long-term opiate analgesic use; Cigarette nicotine dependence without complication Start: 11-05-2023 End: 11-05-2023 Office outpatient visit 25 minutes Ede PORTER Work Phone: [facility] Comment on above: Pain of left hip (Pr imary Dx); Right sided sciatica; Spasm; Chronic midline low back pain without sciatica; Chronic pain of both knees; Other chronic pain; Atherosclerosis of coronary artery of paimiut heart without angina pectoris, unspecified vessel or lesion type; Spinal stenosis of lumbar region, unspecified whether neurogenic claudication present; Chronic pain syndrome; Chronic midline low back pain with right-sided sciatica; Generalized anxiety disorder; Cigarette nicotine dependence without complication Start: 05-18-2023 Office outpatient vi sit 25 minutes Marcelo Hinojosa Other [facility] Office Start: 04-02-2023 End: 04-02-2023 Office outpatient visit 25 minutes Yoli Romero MD Work Phone: [facility] Comment on above: Spinal stenosis of l umbar region, unspecified whether neurogenic claudication present (Primary Dx); Right sided sciatica; Chronic pain syndrome; Chronic pain of both knees; Encounter for long-term opiate analgesic use; Chronic midline low back pain with right-sided sciatica; Spasm; Chronic midline low back pain without sciatica Start: 01-04-2023 End: 01-04-2023 Office outpatient visit 25 minutes Yoli Romero MD Work Phone: [facility] Comment on above: Right sided sciatica (Primary Dx); Chronic midline low back pain with right-sided sciatica; Spasm; Encounter for long-term opiate analgesic use; Spinal stenosis of lumbar region, unspecified whether neurogenic claudication present; Chronic midline low back pain without sciatica; Chronic pain syndrome; Chronic pain of both knees Start: 11-14-2022 End: 11-15-[address] HANNA [facility] Facility: Start: 10-05-2022 End: 10-05-2022 Office outpatient visit 25 minutes Yoli Romero MD Work Phone: [facility] Comment on above: Chronic left-sided l ow back pain with bilateral sciatica (Primary Dx); Spinal stenosis of lumbar region, unspecified whether neurogenic claudication present; Right sided sciatica; Chronic pain syndrome; Chronic pain of both knees; Chronic midline low back pain with right-sided sciatica; Other chronic pain Start: 07-26-2022 ambulatory KYLIE SPEAR Facility: [facility] Start: 03-16-2022 End: 03-16-2022 Office outpatient visit 25 minutes Ede PORTER Work Phone: [facility] Comment on above: Acute pain of left s lyly (Primary Dx); Spinal stenosis of lumbar region, unspecified whether neurogenic claudication present; Right sided sciatica; Chronic pain syndrome; Chronic pain of both knees; Chronic midline low back pain with right-sided sciatica; Cigarette nicotine dependence without complication Start: 12-08-2021 End: 12-08-2021 Office outpatient visit 25 minutes Yoli Romero MD Work Phone: [facility] Comment on above: Atherosclerosis of c oronary artery of paimiut heart without angina pectoris, unspecified vessel or lesion type (Primary Dx); Spinal stenosis of lumbar region, unspecified whether neurogenic claudication present; Right sided sciatica; Chronic pain syndrome; Chronic pain of both knees; Chronic midline low back pain with right-sided sciatica; Spasm; Chronic midline low back pain without sciatica; Other chronic pain; Encounter for long-term opiate analgesic use Start: 10-06-2021 End: 10-06-2021 Office outpatient visit 25 minutes Yoli Romero MD Work Phone: [facility] Comment on above: Chronic pain syndrom e (Primary Dx); Spinal stenosis of lumbar region, unspecified whether neurogenic claudication present; Chronic pain of both knees; Chronic midline low back pain with right-sided sciatica; Right sided sciatica; Spasm; Chronic midline low back pain without sciatica; Encounter for long-term opiate analgesic use Start: 07-07-2021 End: 07-07-2021 Office outpatient visit 25 minutes Yoli Romero MD Work Phone: [facility] Comment on above: Chronic midline low back pain without sciatica (Primary Dx); Spinal stenosis of lumbar region, unspecified whether neurogenic claudication present; Right sided sciatica; Chronic pain syndrome; Chronic pain of both knees; Chronic midline low back pain with right-sided sciatica; Spasm; Generalized anxiety disorder; Encounter for long-term opiate analgesic use Start: 06-02-2021 End: 06-02-2021 Office outpatient visit 25 minutes Yoli Romero MD Work Phone: [facility] Comment on above: Spinal stenosis of l umbar region, unspecified whether neurogenic claudication present (Primary Dx); Chronic pain syndrome; Chronic pain of both knees; Chronic midline low back pain with right-sided sciatica; Encounter for long-term opiate analgesic use Start: 05-24-2021 Office outpatient vi sit 25 minutes Marcelo Hinojosa Other [facility] Office Start: 02-17-2021 End: 02-17-2021 Office outpatient visit 25 minutes Yoli Romero MD Work Phone: [facility] Comment on above: Encounter for long-t erm opiate analgesic use (Primary Dx); Chronic pain syndrome; Spinal stenosis of lumbar region, unspecified whether neurogenic claudication present; Chronic pain of both knees; Chronic midline low back pain with right-sided sciatica Start: 01-13-2021 End: 01-13-2021 Office outpatient visit 25 minutes Yoli Romero MD Work Phone: [facility] Comment on above: Spinal stenosis of l umbar region, unspecified whether neurogenic claudication present (Primary Dx); Chronic pain syndrome; Chronic pain of both knees; Chronic midline low back pain with right-sided sciatica; Right sided sciatica Start: 12-16-2020 End: 12-16-2020 Office outpatient visit 25 minutes Ede PORTER Work Phone: [facility] Comment on above: Chronic left shoulde r pain (Primary Dx); Chronic pain syndrome; Cigarette nicotine dependence without complication; Encounter for long-term opiate analgesic use; Muscle spasms of both lower extremities; Primary osteoarthritis of right hip; Sciatica of right side; Spinal stenosis of lumbar region, unspecified whether neurogenic claudication present; Right sided sciatica; Spasm; Chronic midline low back pain without sciatica; Chronic pain of both knees; Chronic midline low back pain with right-sided sciatica Start: 10-07-2020 End: 10-07-2020 [facility] Marcelo Hinojosa Other [facility] Office Start: 10-05-2020 Office outpatient vi sit 25 minutes Marcelo Hinojosa Other [facility] Office Start: 09-30-2020 End: 09-30-2020 Office outpatient visit 25 minutes Yoli Zeferino GarridoRomero Work Phone: [facility] Comment on above: Chronic pain syndrom e; Chronic pain of both knees; Chronic midline low back pain with right-sided sciatica; Spinal stenosis of lumbar region, unspecified whether neurogenic claudication present Start: 08-31-2020 End: 08-31-2020 Office outpatient visit 25 minutes [employer] Work Phone: [facility] Comment on above: Chronic left shoulde r pain (Primary Dx); Chronic pain syndrome; Chronic pain of both knees; Chronic midline low back pain with right-sided sciatica; Spinal stenosis of lumbar region, unspecified whether neurogenic claudication present; Right sided sciatica; Cigarette nicotine dependence without complication; Muscle spasms of both lower extremities Start: 06-24-2020 End: 06-24-2020 Office outpatient visit 25 minutes [employer] Work Phone: [facility] Comment on above: Chronic pain syndrom e; Chronic pain of both knees; Chronic midline low back pain with right-sided sciatica; Spinal stenosis of lumbar region, unspecified whether neurogenic claudication present; Right sided sciatica; Spasm; Chronic midline low back pain without sciatica Start: 05-27-2020 End: 05-27-2020 Office outpatient visit 25 minutes [employer] Work Phone: [facility] Comment on above: Chronic midline low back pain with right-sided sciatica (Primary Dx); Chronic pain of both knees; Spinal stenosis of lumbar region, unspecified whether neurogenic claudication present; Acute pain of left shoulder; Cigarette nicotine dependence without complication; Encounter for long-term opiate analgesic use; Muscle spasms of both lower extremities; Spasm; Chronic pain syndrome Start: 04-22-2020 End: 04-22-2020 Office outpatient visit 25 minutes Ede Richard Work Phone: [facility] Comment on above: Cigarette nicotine d ependence without complication (Primary Dx); Chronic pain syndrome; Chronic pain of both knees; Chronic midline low back pain with right-sided sciatica; Spinal stenosis of lumbar region, unspecified whether neurogenic claudication present; Right sided sciatica; Spasm; Chronic midline low back pain without sciatica; Encounter for long-term opiate analgesic use; Primary osteoarthritis of right hip; Sciatica of right side Start: 02-05-2020 End: 02-05-2020 Office outpatient visit 25 minutes Yoli Romero Work Phone: [facility] Comment on above: Spinal stenosis of l umbar region, unspecified whether neurogenic claudication present (Primary Dx); Right sided sciatica; Spasm; Chronic pain syndrome; Chronic pain of both knees; Chronic midline low back pain with right-sided sciatica; Encounter for long-term opiate analgesic use; Flank pain; Chronic midline low back pain without sciatica; Frequency of urination; Cigarette nicotine dependence without complication; Skin lesions Start: 01-08-2020 End: 01-08-2020 Office outpatient visit 25 minutes Ede Richard Work Phone: [facility] Comment on above: Chronic midline low back pain with right-sided sciatica (Primary Dx); Chronic pain syndrome; Chronic pain of both knees; Spinal stenosis of lumbar region, unspecified whether neurogenic claudication present; Chronic left shoulder pain; Cigarette nicotine dependence without complication; Encounter for long-term opiate analgesic use; Muscle spasms of both lower extremities; Spasm Start: 11-25-2019 Office Services Marcelo Hinojosa Other [facility] Office Start: 10-09-2019 End: 10-09-2019 Office outpatient visit 25 minutes Ede Richard Work Phone: [facility] Comment on above: Cigarette nicotine d ependence without complication (Primary Dx); Chronic pain syndrome; Chronic pain of both knees; Chronic midline low back pain with right-sided sciatica; Spinal stenosis of lumbar region, unspecified whether neurogenic claudication present; Encounter for long-term opiate analgesic use; Primary osteoarthritis of right hip; Sciatica of right side Start: 08-21-2019 End: 08-21-2019 Office outpatient visit 25 minutes Ede Richard Work Phone: [facility] Comment on above: Cigarette nicotine d ependence without complication (Primary Dx); Spinal stenosis of lumbar region, unspecified whether neurogenic claudication present; Right sided sciatica; Chronic pain syndrome; Chronic pain of both knees; Chronic midline low back pain with right-sided sciatica; Spasm; Hives Start: 07-25-2019 End: 07-25-2019 Office outpatient visit 25 minutes Ede Richard Work Phone: [facility] Comment on above: Chronic midline low back pain with right-sided sciatica (Primary Dx); Right sided sciatica; Spinal stenosis of lumbar region, unspecified whether neurogenic claudication present; Chronic pain syndrome; Chronic pain of both knees; Chronic left shoulder pain; Cigarette nicotine dependence without complication; Muscle spasms of both lower extremities; Spasm Start: 06-26-2019 End: 06-26-2019 Office outpatient visit 25 minutes Yoli Romero Work Phone: [facility] Comment on above: Encounter for long-t erm opiate analgesic use (Primary Dx); Chronic pain syndrome; Chronic pain of both knees; Chronic midline low back pain with right-sided sciatica; Spinal stenosis of lumbar region, unspecified whether neurogenic claudication present Start: 05-29-2019 End: 05-29-2019 Office outpatient visit 25 minutes Ede Richard Work Phone: [facility] Comment on above: Chronic midline low back pain with right-sided sciatica (Primary Dx); Chronic pain syndrome; Chronic pain of both knees; Spinal stenosis of lumbar region, unspecified whether neurogenic claudication present; Cigarette nicotine dependence without complication; Encounter for long-term opiate analgesic use; Primary osteoarthritis of right hip; Chronic pain of right knee Start: 05-01-2019 End: 05-01-2019 Office outpatient visit 25 minutes Ede Richard Work Phone: [facility] Comment on above: Cigarette nicotine d ependence without complication (Primary Dx); Chronic pain syndrome; Chronic pain of both knees; Chronic midline low back pain with right-sided sciatica; Spinal stenosis of lumbar region, unspecified whether neurogenic claudication present; Right sided sciatica; Chronic left shoulder pain; Other chronic pain; Primary osteoarthritis of right hip; Spasm Start: 04-27-2019 End: 04-27-2019 Refill Yoli Zeferino Romero Work Phone: [facility] Start: 04-04-2019 End: 04-04-2019 Refill [employer] [facility] Comment on above: Right sided sciatica ; Spinal stenosis of lumbar region, unspecified whether neurogenic claudication present Start: 04-03-2019 End: 04-03-2019 Patient encounter procedure Other Other [facility] Start: 04-03-2019 End: 04-03-2019 Office outpatient visit 25 minutes Ede Richard Work Phone: [facility] Comment on above: Chronic pain syndrom e (Primary Dx); Cigarette nicotine dependence without complication; Chronic midline low back pain with right-sided sciatica; Muscle spasms of both lower extremities; Primary osteoarthritis of right hip; Sciatica of right side; Spasm; Spinal stenosis of lumbar region, unspecified whether neurogenic claudication present; Encounter for long-term opiate analgesic use; Chronic pain of both knees; Right sided sciatica Start: 03-06-2019 End: 03-06-2019 Office outpatient visit 25 minutes Ede Richard Work Phone: [facility] Comment on above: Cigarette nicotine d ependence without complication (Primary Dx); Chronic pain syndrome; Chronic pain of both knees; Chronic midline low back pain with right-sided sciatica; Spinal stenosis of lumbar region, unspecified whether neurogenic claudication present; Encounter for long-term opiate analgesic use; Primary osteoarthritis of right hip; Sciatica of right side; Muscle spasms of both lower extremities Start: 02-25-2019 Office outpatient vi sit 25 minutes Marcelo Hinojosa Other [facility] Office Start: 02-06-2019 End: 02-06-2019 Office outpatient visit 25 minutes Ede Richard Work Phone: [facility] Comment on above: Other chronic pain ( Primary Dx); Chronic pain syndrome; Chronic pain of both knees; Chronic midline low back pain with right-sided sciatica; Spinal stenosis of lumbar region, unspecified whether neurogenic claudication present; Right sided sciatica; Cigarette nicotine dependence without complication; Encounter for long-term opiate analgesic use Start: 01-09-2019 End: 01-09-2019 Office outpatient visit 25 minutes Ede Richard Work Phone: [facility] Comment on above: Cigarette nicotine d ependence without complication (Primary Dx); Chronic pain syndrome; Chronic pain of both knees; Chronic midline low back pain with right-sided sciatica; Spinal stenosis of lumbar region, unspecified whether neurogenic claudication present; Encounter for long-term opiate analgesic use Start: 12-12-2018 End: 12-12-2018 Office outpatient visit 25 minutes Ede Richard Work Phone: [facility] Comment on above: Spasm (Primary Dx); Chronic pain syndrome; Chronic pain of both knees; Chronic midline low back pain with right-sided sciatica; Spinal stenosis of lumbar region, unspecified whether neurogenic claudication present; Sciatica of right side; Primary osteoarthritis of right hip; Cigarette nicotine dependence without complication; Encounter for long-term opiate analgesic use Start: 11-21-2018 End: 11-21-2018 Office outpatient visit 40 minutes Yoli Romero Work Phone: [facility] Comment on above: Chronic pain syndrom e; Chronic pain of both knees; Chronic midline low back pain with right-sided sciatica; Spinal stenosis of lumbar region, unspecified whether neurogenic claudication present; Right sided sciatica Start: 10-29-2018 End: 10-29-2018 Outside Orders Historical Provider [facility] Start: 10-25-2018 End: 10-25-2018 Telephone encounter Ede Richard Work Phone: [facility] Comment on above: Results Flank pain Error Start: 10-24-2018 End: 10-24-2018 Patient encounter procedure Ede Richard Work Phone: [facility] Comment on above: Arrived Start: 10-24-2018 End: 10-24-2018 Office outpatient visit 25 minutes Yoli Romero Work Phone: [facility] Comment on above: Encounter for long-t erm opiate analgesic use (Primary Dx); Chronic pain syndrome; Chronic pain of both knees; Chronic midline low back pain with right-sided sciatica; Spinal stenosis of lumbar region, unspecified whether neurogenic claudication present; Right sided sciatica; Spasm; Cigarette nicotine dependence without complication; Sciatica of right side Start: 08-29-2018 End: 08-29-2018 Office outpatient visit 25 minutes Ede Richard Work Phone: [facility] Comment on above: Encounter for long-t erm opiate analgesic use (Primary Dx); Right sided sciatica; Spinal stenosis of lumbar region, unspecified whether neurogenic claudication present; Chronic pain syndrome; Chronic pain of both knees; Chronic midline low back pain with right-sided sciatica; Cigarette nicotine dependence without complication Start: 06-27-2018 End: 06-27-2018 Office outpatient visit 25 minutes Yoli Romero Work Phone: [facility] Comment on above: Sciatica of right si de (Primary Dx); Chronic pain syndrome; Chronic pain of both knees; Chronic midline low back pain with right-sided sciatica; Spinal stenosis of lumbar region, unspecified whether neurogenic claudication present; Encounter for long-term opiate analgesic use; Primary osteoarthritis of right hip Start: 02-01-2018 Office outpatient vi sit 15 minutes Marcelo Hinojosa Other [facility] Office Start: 01-31-2017 Office outpatient vi sit 15 minutes Marcelo Hinojosa Other [facility] Office Start: 07-07-2016 Office outpatient vi sit 15 minutes Marcelo Hinojosa Other [facility] Office Start: 01-14-2016 Office outpatient vi sit 15 minutes Marcelo Hinojosa Other [facility] Office Start: 09-13-2015 Office outpatient vi sit 15 minutes Marcelo Hinojosa Other [facility] Office Start: 12-18-2014 Office outpatient vi sit 15 minutes Marcelo Hinojosa Other [facility] Office Start: 06-05-2014 Office Services Marcelo Hinojosa Other [facility] Start: 01-21-2014 Office Services Manfred Billings Other [facility] Office Start: 12-17-2013 Evaluation and manag ement of inpatient Manfred Billings Other [facility] Start: 12-17-2013 Procedure Marcelo Hinojosa Other [facility] Start: 12-16-2013 Evaluation and manag ement of inpatient Marcelo Hinojosa Other [facility] Start: 12-16-2013 End: 12-16-2013 Procedure Marcelo Hinojosa Other [facility] Start: 12-01-2013 Office Services Marcelo Hinojosa Other [facility] Office Start: 10-30-2013 Procedure Marcelo Hinojosa Other [facility] Start: 10-13-2013 Office Services Marcelo Hinojosa Other [facility] Office Start: 08-30-2013 Procedure Marcelo Hinojosa Other [facility] Start: 08-30-2013 Voided Visit Marcelo Hinojosa Other [facility] Start: 08-29-2013 Procedure Marcelo Hinojosa Other [facility] Start: 08-29-2013 Procedure Marcelo Hinojosa Other [facility] Start: 08-29-2013 Evaluation and manag ement of inpatient Marcelo Hinojosa Other [facility] Procedures Date Procedure Procedure Detail Performing Clinician Start: 09-17-2024 Electrocardiogram with exercise test Marcelo Hinojosa Start: 09-17-2024 Myocardial spect multiple studies Marcelo Hinojosa Start: 09-17-2024 Regadenoson injection Marcelo Hinojosa Start: 09-17-2024 [id number] sestamibi Marcelo Hinojosa Start: 09-09-2024 Blood chemistry Marcelo Hinojosa Start: 09-09-2024 Electrocardiographic procedure Marcelo saunders Start: 09-09-2024 Erythrocyte mean corpuscular volume determination Marcelo Hinojosa Start: 09-09-2024 Lipid panel Marcelo Hinojosa Start: 09-09-2024 Myocardial spect multiple studies Marcelo Hinojosa Start: 08-18-2023 Lipid panel Marcelo Hinojosa Start: 05-18-2023 Electrocardiographic procedure Marcelo Marcano er Start: 05-23-2021 Medication Documented MIPS Marcelo Hinojosa Start: 10-08-2020 Myocardial spect multiple studies Marcelo Hinojosa Start: 10-07-2020 Cv strs tst xers&/or rx cont ecg w/si&r Marcelo Hinojosa Start: 10-07-2020 Electrocardiogram with exercise test Marcelo Hinojosa Start: 10-07-2020 Myocardial spect multiple studies Marcelo Hinojosa Start: 10-07-2020 Tc99m sestamibi Marcelo Hinojosa Start: 10-04-2020 Medication Documented MIPS Marcelo Hinojosa Start: 02-05-2020 Urinalysis microscopic only Yoli Zeferino Jeronimo Work Phone: Start: 02-05-2020 Urinalysis, reagent strip without microscopy Yolitete Romero Work Phone: Start: 02-05-2020 Urnls dip stick/tablet rgnt non-auto w/o micrscp Yoli Romero Work Phone: Start: 03-04-2019 Myocardial spect multiple studies Marcelo Hinojosa Start: 02-25-2019 Ecg routine ecg w/least 12 lds w/i&r Marcelo Hinojosa Start: 02-24-2019 Lipid panel Marcelo Hinojosa Start: 02-24-2019 Lipid panel Marcelo Hinojosa Start: 02-24-2019 Medication Documented MIPS Marcelo Hinojosa Start: 10-24-2018 Diagnostic radiography of lumbar spine Ede Richard Work Phone: Start: 10-24-2018 LABS (OUTSIDE) Historical Provider Start: 02-01-2018 Lipid panel Marcelo Hinojosa Start: 02-01-2018 Lipid panel Marcelo Hinojosa Start: 02-01-2018 Medication Documented MIPS Marcelo Hinojosa Start: 01-31-2017 Medication Documented MIPS Marcelo Hinojosa Start: 09-20-2015 Lipid panel Marcelo Hinojosa Start: 09-20-2015 Lipid panel Marcelo Hinojosa Start: 12-18-2014 Doc meds verified w/pt or re Marcelo Hinojosa Start: 12-18-2014 Flu immunize no order/admin Marcelo Hinojosa Start: 12-18-2014 Lipid panel Marcelo Hinojosa Start: 12-18-2014 Lipid panel Marcelo Hinojosa Start: 12-18-2014 Tobacco abuse prevention Marcelo Hinojosa Start: 07-24-2014 Alanine aminotransferase measurement Marcelo Hinojosa Start: 07-24-2014 Lipid panel Marcelo Hinojosa Start: 07-24-2014 Lipid panel Marcelo Hinojosa Start: 07-24-2014 Transferase alanine amino alt sgpt Marcelo Hinojosa Start: 06-05-2014 Doc meds verified w/pt or re Marcelo Hinojosa Start: 06-05-2014 Flu immunize no order/admin Marcelo Hinojosa Start: 06-05-2014 Tobacco abuse prevention Marcelo Hinojosa Start: 01-28-2014 Myocardial spect multiple studies Marcelo Hinojosa Start: 01-28-2014 Single photon emission computed tomography of heart Marcelo Hinojosa Start: 01-21-2014 Doc meds verified w/pt or re Marcelo Hinojosa Start: 01-21-2014 Ecg routine ecg w/least 12 lds w/i&r Marcelo Hinojosa Start: 01-21-2014 Tobacco abuse prevention Marcelo Hinojosa Start: 10-13-2013 Basic metabolic panel calcium total Marcelo Hinojosa Start: 10-13-2013 Blood chemistry Marcelo Hinojosa Start: 10-13-2013 Blood count complete automated Marcelo Marcano er Start: 10-13-2013 Cath plmt l hrt & arts w/njx & angio img s&i Marcelo Hinojosa Start: 10-13-2013 Erythrocyte mean corpuscular volume determination Marcelo Hinojosa Start: 10-09-2013 Cardiovascular stress test using pharmacologic stress agent Marcelo Hinojosa Start: 10-09-2013 Cv strs tst xers&/or rx cont ecg w/si&r Marcelo Hinojosa Plan of Treatment Date Care Activity Detail Author Start: 2038 RSV VACCINE (1 - 1-d ose 75+ series) RSV VACCINE (1 - 1-dose 75+ series) [facility] Start: 04-23-2025 End: 04-23-2025 Patient encounter procedure 04/23/2025 10:00 AM EDT Office Visit [facility] [address] [place] [address] Ede Richard, EMPLOYEE COUNSELOR-GERIATRIC NURSE [address] [place] [address] [facility] Start: 03-23-2025 Influenza vaccination A [place] [employer] [facility] Start: 02-17-2025 Urine culture [facility] Start: 02-17-2025 Bacteria identified in Urine by Culture Urine Culture [facility] Start: 01-22-2025 End: 01-22-2025 Patient encounter procedure 01/22/2025 10:00 AM EDT Office Visit [facility] [address] [facility] [place] [address] Ede Richard, EMPLOYEE COUNSELOR-GERIATRIC NURSE [address] [place] [address] [facility] Start: 10-23-2024 End: 10-23-2024 Patient encounter procedure 10/23/2024 10:15 AM EDT Office Visit [facility] [address] [place] [facility] [place] [address] Ede Richard, EMPLOYEE COUNSELOR-GERIATRIC NURSE [address] [facility] [place] [address] [facility] Start: 09-09-2024 Basic metabolic pane l calcium total Chem 8 [facility] Start: 09-09-2024 Blood count complete automated CBC PLATELET COUNT; AUTOMATED [facility] E96 [facility] Start: 09-09-2024 Ecg routine ecg w/le ast 12 lds w/i&r EKG (electrocardiogram) [facility] Start: 09-09-2024 Lipid panel Lipid panel [facility] Start: 09-09-2024 Lexiscan Cardiolite [facility] Start: 07-29-2024 End: 07-29-2024 Patient encounter procedure 07/29/2024 10:00 AM EST Office Visit [facility] [address] [facility] [place] [address] Ede Richard, EMPLOYEE COUNSELOR-GERIATRIC NURSE [address] [facility] [place] [address] [facility] Start: 04-28-2024 End: 04-28-2024 Patient encounter procedure 04/28/2024 10:00 AM EDT Office Visit [facility] [address] [place] [facility] [address] Ede Richard, EMPLOYEE COUNSELOR-GERIATRIC NURSE [address] [place] [facility] [place] [address] [facility] Start: 03-23-2024 COVID-19 VACCINE ( season) COVID-19 VACCINE ( season) [facility] Start: 03-23-2024 COVID-19 VACCINE () COVID-19 VACCINE () [facility] Start: 03-23-2024 Influenza vaccination A [facility] Start: 01-31-2024 End: 01-31-2024 Patient encounter procedure 01/31/2024 10:15 AM EDT Office Visit [facility] [address] [place] [facility] [place] [address] Ede Richard, EMPLOYEE COUNSELOR-GERIATRIC NURSE [address] [place] [facility] [place] [address] [facility] Start: 11-05-2023 End: 11-04-2024 XR Hip - left 2 Views XR HIP LEFT 2-3 VIEWS Imaging Routine Pain of left hip Expected: 11/05/2023, Expires: 11/04/2024 [facility] Comment on above: Expected: 11/05/2023 , Expires: 11/04/2024 Start: 08-18-2023 Lipid panel Lipid panel [facility] Start: 07-03-2023 End: 07-03-2023 Patient encounter procedure 07/03/2023 10:15 AM EST Office Visit [facility] [address] [place] [facility] [place] [address] Ede Richard, EMPLOYEE COUNSELOR-GERIATRIC NURSE [address] [place] [facility] [place] [address] [facility] Start: 05-18-2023 Ecg routine ecg w/le ast 12 lds w/i&r EKG (electrocardiogram) [facility] Start: 04-05-2023 End: 04-05-2023 Patient encounter procedure 04/05/2023 10:00 AM EDT Office Visit [facility] [address] [place] [facility] [place] [address] Yoli Romero MD [address] [place] [facility] [place] [address] [facility] Start: 2023 RSV VACCINE (1 - 1-d ose 60+ series) RSV VACCINE (1 - 1-dose 60+ series) [facility] Start: 03-23-2023 COVID-19 VACCINE ( season) COVID-19 VACCINE () [facility] Start: 03-23-2023 Influenza vaccination A [facility] Start: 01-04-2023 End: 01-04-2023 Patient encounter procedure 01/04/2023 Office Visit Family Yoli Bennett MD [address] [place] [address] [facility] Start: 04-13-2022 End: 04-13-2022 Patient encounter procedure 04/13/2022 Office Visit Family Yoli Bennett MD [address] [place] [address] [facility] Start: 03-23-2022 Influenza vaccination A [facility] Start: 03-09-2022 End: 03-09-2022 Patient encounter procedure 03/09/2022 Office Visit Family Yoli Bennett MD [address] [place] [address] [facility] Start: 12-08-2021 End: 12-08-2021 Patient encounter procedure 12/08/2021 Office Visit Family Yoli Bennett MD [address] [facility] [place] [address] [facility] Start: 10-06-2021 End: 10-06-2021 Patient encounter procedure 10/06/2021 Office Visit Family Yoli Bennett MD [address] [facility] [place] [address] [facility] Start: 07-07-2021 End: 07-07-2021 Patient encounter procedure 07/07/2021 Office Visit Family Yoli Bennett MD [address] [facility] [place] [address] [facility] Start: 03-24-2021 End: 03-24-2021 Patient encounter procedure 03/24/2021 Office Visit Family Yoli Bennett MD [address] [place] [facility] [place] [address] [facility] Start: 03-23-2021 Influenza vaccination A [facility] Start: 02-10-2021 End: 02-10-2021 Patient encounter procedure 02/10/2021 Office Visit Family Yoli Bennett MD [address] [place] [facility] [address] [facility] Start: 01-13-2021 End: 01-13-2021 Patient encounter procedure 01/13/2021 Office Visit Family Yoli Bennett MD [address] [place] [facility] [address] [facility] Start: 12-16-2020 End: 12-16-2020 Office Visit 12/16/2020 Office Visit Family Medicine Ede Richard, EMPLOYEE COUNSELOR-GERIATRIC NURSE [address] [facility] [place] [address] [facility] Start: 10-08-2020 Cardiolite: My ocardial Perfusion [facility] Start: 09-30-2020 End: 09-30-2020 Office Visit 09/30/2020 Office Visit Family Medicine Yoli Romero MD [address] [place] [facility] [address] [facility] Start: 07-26-2020 End: 07-26-2020 Office Visit 07/26/2020 Office Visit Family Medicine Ede Richard, EMPLOYEE COUNSELOR-GERIATRIC NURSE [address] [place] [facility] [address] [facility] Start: 06-24-2020 End: 06-24-2020 Office Visit 06/24/2020 Office Visit Family Medicine Yoli Romero MD [address] [place] [facility] [address] [facility] Start: 05-20-2020 End: 05-20-2020 Office Visit 05/20/2020 Office Visit Family Medicine Yoli Romero MD [address] [place] [facility] [address] [facility] Start: 04-01-2020 End: 04-01-2020 Office Visit 04/01/2020 Office Visit Family Medicine Ede Richard, EMPLOYEE COUNSELOR-GERIATRIC NURSE [address] [place] [facility] [address] [facility] Start: 03-23-2020 Influenza vaccination A [facility] Start: 02-05-2020 End: 02-04-2021 JARAD MULTIPLEX SCRN WITH REFLEX JARAD MULTIPLEX SCRN WITH REFLEX Lab Routine Skin lesions Expected: 02/05/2020, Expires: 02/04/2021 [facility] Comment on above: Expected: 02/05/2020 , Expires: 02/04/2021 Start: 02-05-2020 End: 02-04-2021 Complete blood count with white cell differential, automated CBC, EDIF, PLATELET Lab Routine Flank pain Skin lesions Expected: 02/05/2020, Expires: 02/04/2021 [employer] [facility] Comment on above: Expected: 02/05/2020 , Expires: 02/04/2021 Start: 02-05-2020 End: 02-04-2021 Comprehensive metabolic 2000 panel COMPREHENSIVE METABOLIC PANEL Lab Routine Flank pain Skin lesions Expected: 02/05/2020, Expires: 02/04/2021 [employer] Comment on above: Expected: 02/05/2020 , Expires: 02/04/2021 Start: 02-05-2020 End: 02-05-2020 Office Visit 02/05/2020 Office Visit Family Medicine Yoli Romero MD [address] [place] [address] [facility] Start: 11-24-2019 Lipid panel Lipid panel [facility] Start: 11-24-2019 Cardiolite: My ocardial Perfusion [facility] Start: 11-06-2019 End: 11-06-2019 Office Visit 11/06/2019 Office Visit Family Medicine Ede Richard, EMPLOYEE COUNSELOR-GERIATRIC NURSE [address] [place] [facility] [address] [facility] Start: 09-18-2019 End: 09-18-2019 Office Visit 09/18/2019 Office Visit Family Medicine Yoli Romero MD [address] [place] [facility] [address] [facility] Start: 08-21-2019 End: 08-21-2019 Office Visit 08/21/2019 Office Visit Family Medicine Ede Richard, EMPLOYEE COUNSELOR-GERIATRIC NURSE [address] [place] [facility] [address] [facility] Start: 07-25-2019 End: 07-25-2019 Office Visit 07/25/2019 Office Visit Family Medicine Ede Richard, EMPLOYEE COUNSELOR-GERIATRIC NURSE [address] [place] [facility] [address] [facility] Start: 06-26-2019 End: 06-26-2019 Office Visit 06/26/2019 Office Visit Family Medicine Yoli Romero MD [address] [place] [address] [facility] Start: 05-29-2019 End: 05-29-2020 Radiologic examination of knee XR KNEE RIGHT 4+ VIEWS Imaging Routine Chronic pain of right knee Expected: 05/29/2019, Expires: 05/29/2020 [facility] Comment on above: Expected: 05/29/2019 , Expires: 05/29/2020 Start: 05-29-2019 End: 05-29-2019 Office Visit 05/29/2019 Office Visit Family Medicine [facility]de [facility] [address] [place] [facility] [place] [address] [facility] Start: 05-01-2019 End: 05-01-2019 Office Visit 05/01/2019 Office Visit Family Medicine Ede Richard [facility] [address] [place] [facility] [address] [facility] Start: 04-03-2019 End: 04-03-2019 Office Visit 04/03/2019 Office Visit Family Medicine Ede Richard EMPLOYEE COUNSELOR-[facility] [address] [place] [facility] [place] [address] [facility] Start: 03-23-2019 Influenza vaccination A [facility] [employer] Start: 03-06-2019 End: 03-06-2019 Office Visit 03/06/2019 Office Visit Family Medicine Ede Richard, EMPLOYEE COUNSELOR-[facility] [address] [place] [facility] [address] [facility] Start: 03-04-2019 Cardiolite: My ocardial Perfusion [facility] Start: 02-25-2019 Ecg routine ecg w/le ast 12 lds w/i&r *EKG [facility] Start: 02-24-2019 Lipid panel Lipid panel [facility] [employer] Start: 02-06-2019 End: 02-06-2019 Office Visit 02/06/2019 Office Visit Family Medicine Ede Richard EMPLOYEE COUNSELOR-GERIATRIC NURSE [address] [place] [facility] [address] [facility] Start: 01-09-2019 End: 01-09-2019 Office Visit [facility] Start: 11-21-2018 End: 11-21-2018 Office Visit 11/21/2018 Office Visit Family Medicine Yoli Romero MD [address] [place] [facility] [address] [phone] [facility] Start: 10-25-2018 End: 10-26-2019 CT of abdomen and pelvis CT ABDOMEN/PELVIS WITHOUT CONTRAST Imaging Routine Flank pain Expected: 10/25/2018, Expires: 10/26/2019 [facility] Comment on above: Expected: 10/25/2018 , Expires: 10/26/2019 Start: 07-25-2018 End: 07-25-2018 Ambulatory 07/25/2018 Office Visit Family Medicine Ede Richard, EMPLOYEE COUNSELOR-GERIATRIC NURSE [address] [facility] [place] [address] [phone] [facility] Start: 03-23-2018 Influenza vaccination INFLUENZA VACC INE (#1) [facility] Work Phone: Start: 2013 Colonoscopy [facility] Start: 2013 Pneumococcal vaccination PNEUM OCOCCAL VACCINE SERIES (1 of 1 - PCV) [facility] Start: 2013 Protein mass conc COLON CANCER SCREENING DISCUSSION [facility] Work Phone: Start: 2013 Zoster vaccine hzv l bryce for subcutaneous use ZOSTER (SHINGLES) VACCINE (1 of 2) [facility] Start: 2008 Colonoscopy COLORECTAL CAN CER SCREENING DISCUSSION [facility] Start: 2008 Screening for malign ant neoplasm of colon COLORECTAL CANCER SCREENING DISCUSSION [facility] Start: 07-23-2006 Screening for malign ant neoplasm of cervix [facility] Start: 2003 Fasting lipid profile LIPID SCREENIN G [facility] Start: 2003 Lipid panel LIPID SCREENING [facility] Start: 2003 Protein mass conc MAMMOGRAM SC REENING DISCUSSION [facility] Work Phone: Start: 2003 Screening for malign ant neoplasm of breast MAMMOGRAM SCREENING DISCUSSION [facility] Start: 2003 Screening mammography MAMMOGRA M SCREENING DISCUSSION [facility] Start: 1982 Third diphtheria, tetanus and acellular pertussis (DTaP) vaccination TDAP (ADULT) [facility] Start: 1981 Tetanus vaccination TETANUS [facility] Start: 1979 COVID-19 VACCINE (1) COVID-19 VACCIN E (1) [facility] Start: 1976 HIV screening HIV SCREENING DISCUSSION [facility] Work Phone: Start: 1975 COVID-19 VACCINE (1) COVID-19 VACCIN E (1) [facility] Start: 1969 PNEUMOCOCCAL VACCINE SERIES (1 - PCV) PNEUMOCOCCAL VACCINE SERIES (1 - PCV) [facility] Start: 1969 PNEUMOCOCCAL VACCINE SERIES (1 of 2 - PCV) PNEUMOCOCCAL VACCINE SERIES (1 of 2 - PCV) [facility] Start: 1969 PNEUMOCOCCAL VACCINE SERIES (1 of 2 - PPSV23) PNEUMOCOCCAL VACCINE SERIES (1 of 2 - PPSV23) [facility] Start: 1968 COVID-19 VACCINE (#1) COVID-19 VACCI NE (#1) [facility] Start: 1968 COVID-19 VACCINE (1) COVID-19 VACCIN E (1) [facility] Start: 1963 COVID-19 VACCINE (#1) COVID-19 VACCI NE (#1) [facility] Start: 1963 Tetanus vaccination TETANUS [facility] Start: 1963 Thyroid stimulating hormone measurement TSH [facility] Start: 1963 End: 1963 Finding of potassium level (finding) POTASSIUM [facility] Start: 1963 End: 1963 Hepatitis C antibody, confirmatory test HEPATITIS C VIRUS SCREENING [facility] Work Phone: Start: 1963 End: 1963 Thyrotropin Qn TSH [facility] Work Phone: Urine drug screening TOXICOLOGY DRUG SCREEN, URINE Lab Routine Chronic pain syndrome Encounter for long-term opiate analgesic use Ordered: 01/08/2020 [facility] Comment on above: Ordered: 01/08/2020 Payers Date Payer Category Payer Self-pay 2024 Medicare (Managed Care) MEDICARE [facility] HMO [id number] 2024 Unknown [id number] 2020 Medicaid [id number] 2020 Medicare MEDICARE MEDICAR E A AND B [id number] 2020-Present [address] [place] [address] [id number] 2020 Medicare [id number] 2017 Unknown [facility] xxxxxxxxxxxx 2017-Present xxxxxxxxxxxx [id number] 2017 Unknown [id number] 2024 Medicaid [id number] 1963 Unknown [id number] 1963 Unknown [id number] 1963 Unknown [id number] 1963 Unknown [id number] 1963 Unknown [id number] 1963 Unknown [id number] 1963 Unknown [id number] 1959 Medicare [id number] 1959 Self-pay [id number] Social History Date Type Detail Facility Start: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 region, unspecified whether neurogenic claudication present Encounter for long-term opiate analgesic use Encounter for long-term (current) use of other medications Chronic pain of both knees Right sided sciatica Sciatica Cigarette nicotine dependence without complication- Primary Tobacco use disorder Chronic pain syndrome Chronic pain of both knees Chronic midline low back pain with right-sided sciatica Spinal stenosis of lumbar region, unspecified whether neurogenic claudication present Right sided sciatica Sciatica Chronic left shoulder pain Pain in joint, shoulder region Other chronic pain Primary osteoarthritis of right hip Primary localized osteoarthrosis, pelvic region and thigh Spasm Abnormal involuntary movements Chronic midline low back pain with right-sided sciatica- Primary Chronic pain syndrome Chronic pain of both knees Spinal stenosis of lumbar region, unspecified whether neurogenic claudication present Cigarette nicotine dependence without complication Tobacco use disorder Encounter for long-term opiate analgesic use Encounter for long-term (current) use of other medications Primary osteoarthritis of right hip Primary localized osteoarthrosis, pelvic region and thigh Chronic pain of right knee Chronic midline low back pain with right-sided sciatica- Primary Right sided sciatica Sciatica Spinal stenosis of lumbar region, unspecified whether neurogenic claudication present Chronic pain syndrome Chronic pain of both knees Chronic left shoulder pain Pain in joint, shoulder region Cigarette nicotine dependence without complication Tobacco use disorder Muscle spasms of both lower extremities Spasm Abnormal involuntary movements Cigarette nicotine dependence without complication- Primary Tobacco use disorder Spinal stenosis of lumbar region, unspecified whether neurogenic claudication present Right sided sciatica Sciatica Chronic pain syndrome Chronic pain of both knees Chronic midline low back pain with right-sided sciatica Spasm Abnormal involuntary movements Hives Urticaria, unspecified Cigarette nicotine dependence without complication- Primary Tobacco use disorder Chronic pain syndrome Chronic pain of both knees Chronic midline low back pain with right-sided sciatica Spinal stenosis of lumbar region, unspecified whether neurogenic claudication present Encounter for long-term opiate analgesic use Encounter for long-term (current) use of other medications Primary osteoarthritis of right hip Primary localized osteoarthrosis, pelvic region and thigh Sciatica of right side Sciatica Cigarette nicotine dependence without complication- Primary Tobacco use disorder Chronic pain syndrome Chronic pain of both knees Chronic midline low back pain with right-sided sciatica Spinal stenosis of lumbar region, unspecified whether neurogenic claudication present Encounter for long-term opiate analgesic use Encounter for long-term (current) use of other medications Muscle spasms of both lower extremities Sciatica of right side Sciatica Chronic midline low back pain with right-sided sciatica- Primary Chronic pain syndrome Chronic pain of both knees Spinal stenosis of lumbar region, unspecified whether neurogenic claudication present Chronic left shoulder pain Pain in joint, shoulder region Cigarette nicotine dependence without complication Tobacco use disorder Encounter for long-term opiate analgesic use Encounter for long-term (current) use of other medications Muscle spasms of both lower extremities Spasm Abnormal involuntary movements Cigarette nicotine dependence without complication- Primary Tobacco use disorder Chronic pain syndrome Chronic pain of both knees Chronic midline low back pain with right-sided sciatica Spinal stenosis of lumbar region, unspecified whether neurogenic claudication present Right sided sciatica Sciatica Spasm Abnormal involuntary movements Chronic midline low back pain without sciatica Encounter for long-term opiate analgesic use Encounter for long-term (current) use of other medications Primary osteoarthritis of right hip Primary localized osteoarthrosis, pelvic region and thigh Sciatica of right side Sciatica Chronic midline low back pain with right-sided sciatica- Primary Chronic pain of both knees Spinal stenosis of lumbar region, unspecified whether neurogenic claudication present Acute pain of left shoulder Cigarette nicotine dependence without complication Tobacco use disorder Encounter for long-term opiate analgesic use Encounter for long-term (current) use of other medications Muscle spasms of both lower extremities Spasm Abnormal involuntary movements Chronic pain syndrome Chronic left shoulder pain- Primary Pain in joint, shoulder region Chronic pain syndrome Chronic pain of both knees Chronic midline low back pain with right-sided sciatica Spinal stenosis of lumbar region, unspecified whether neurogenic claudication present Right sided sciatica Sciatica Cigarette nicotine dependence without complication Tobacco use disorder Muscle spasms of both lower extremities Chronic left shoulder pain- Primary Pain in joint, shoulder region Chronic pain syndrome Cigarette nicotine dependence without complication Tobacco use disorder Encounter for long-term opiate analgesic use Encounter for long-term (current) use of other medications Muscle spasms of both lower extremities Primary osteoarthritis of right hip Primary localized osteoarthrosis, pelvic region and thigh Sciatica of right side Sciatica Spinal stenosis of lumbar region, unspecified whether neurogenic claudication present Right sided sciatica Sciatica Spasm Abnormal involuntary movements Chronic midline low back pain without sciatica Chronic pain of both knees Chronic midline low back pain with right-sided sciatica Spinal stenosis of lumbar region, unspecified whether neurogenic claudication present- Primary Spasm Abnormal involuntary movements Right sided sciatica Sciatica Chronic pain of both knees Chronic midline low back pain with right-sided sciatica Encounter for long-term opiate analgesic use Encounter for long-term (current) use of other medications Muscle spasms of both lower extremities Other chronic pain Chronic pain syndrome Cigarette nicotine dependence without complication Tobacco use disorder Acute pain of left shoulder- Primary Spinal stenosis of lumbar region, unspecified whether neurogenic claudication present Right sided sciatica Sciatica Chronic pain syndrome Chronic pain of both knees Chronic midline low back pain with right-sided sciatica Cigarette nicotine dependence without complication Tobacco use disorder Pain of left hip- Primary Right sided sciatica Sciatica Spasm Abnormal involuntary movements Chronic midline low back pain without sciatica Chronic pain of both knees Other chronic pain Atherosclerosis of coronary artery of [place] heart without angina pectoris, unspecified vessel or lesion type Spinal stenosis of lumbar region, unspecified whether neurogenic claudication present Chronic pain syndrome Chronic midline low back pain with right-sided sciatica Generalized anxiety disorder Cigarette nicotine dependence without complication Tobacco use disorder Chronic midline low back pain with right-sided sciatica- Primary Chronic left shoulder pain Pain in joint, shoulder region Primary osteoarthritis of right hip Primary localized osteoarthrosis, pelvic region and thigh Right sided sciatica Sciatica Sciatica of right side Sciatica Spasm Abnormal involuntary movements Spinal stenosis of lumbar region, unspecified whether neurogenic claudication present Chronic pain of both knees Chronic pain syndrome Encounter for long-term opiate analgesic use Encounter for long-term (current) use of other medications Cigarette nicotine dependence without complication Tobacco use disorder Cigarette nicotine dependence without complication- Primary Tobacco use disorder Right sided sciatica Sciatica Spasm Abnormal involuntary movements Chronic midline low back pain without sciatica Chronic pain syndrome Spinal stenosis of lumbar region, unspecified whether neurogenic claudication present Chronic pain of both knees Chronic midline low back pain with right-sided sciatica [facility] Diagnosis Spinal stenosis of lumbar region- Primary Spinal stenosis, lumbar region, without neurogenic claudication Primary osteoarthritis of right hip Primary localized osteoarthrosis, pelvic region and thigh Sciatica of right side Sciatica Encounter for long-term opiate analgesic use Encounter for long-term (current) use of other medications Chronic pain of both knees- Primary Chronic midline low back pain with right-sided sciatica Spasm Abnormal involuntary movements Spinal stenosis of lumbar region, unspecified whether neurogenic claudication present Primary osteoarthritis of right hip Primary localized osteoarthrosis, pelvic region and thigh Sciatica of right side Sciatica Encounter for long-term opiate analgesic use Encounter for long-term (current) use of other medications Chronic pain of both knees- Primary Chronic midline low back pain with right-sided sciatica Spasm Abnormal involuntary movements Spinal stenosis of lumbar region, unspecified whether neurogenic claudication present Primary osteoarthritis of right hip Primary localized osteoarthrosis, pelvic region and thigh Sciatica of right side Sciatica Encounter for long-term opiate analgesic use Encounter for long-term (current) use of other medications Chronic pain syndrome Oral abscess Cellulitis and abscess of oral soft tissues Sciatica of right side- Primary Sciatica Spinal stenosis of lumbar region, unspecified whether neurogenic claudication present Chronic pain of both knees Chronic midline low back pain with right-sided sciatica Primary osteoarthritis of right hip Primary localized osteoarthrosis, pelvic region and thigh Chronic pain syndrome Right sided sciatica Sciatica Encounter for long-term opiate analgesic use Encounter for long-term (current) use of other medications Spasm- Primary Abnormal involuntary movements Spinal stenosis of lumbar region, unspecified whether neurogenic claudication present Chronic pain of both knees Chronic midline low back pain with right-sided sciatica Primary osteoarthritis of right hip Primary localized osteoarthrosis, pelvic region and thigh Chronic pain syndrome Cigarette nicotine dependence without complication Tobacco use disorder Sciatica of right side Sciatica Encounter for long-term opiate analgesic use Encounter for long-term (current) use of other medications Chronic midline low back pain with right-sided sciatica- Primary Sciatica of right side Sciatica Spasm Abnormal involuntary movements Spinal stenosis of lumbar region, unspecified whether neurogenic claudication present Primary osteoarthritis of right hip Primary localized osteoarthrosis, pelvic region and thigh Chronic pain syndrome Cigarette nicotine dependence without complication Tobacco use disorder Encounter for long-term opiate analgesic use Encounter for long-term (current) use of other medications Chronic pain syndrome- Primary Right sided sciatica Sciatica Cigarette nicotine dependence without complication Tobacco use disorder Chronic pain of both knees Chronic midline low back pain with right-sided sciatica Spasm Abnormal involuntary movements Spinal stenosis of lumbar region, unspecified whether neurogenic claudication present Primary osteoarthritis of right hip Primary localized osteoarthrosis, pelvic region and thigh Sciatica of right side Sciatica Encounter for long-term opiate analgesic use Encounter for long-term (current) use of other medications Chronic pain syndrome Chronic pain of both knees Chronic midline low back pain with right-sided sciatica Spinal stenosis of lumbar region, unspecified whether neurogenic claudication present Right sided sciatica Sciatica Spasm Abnormal involuntary movements Acute pain of left shoulder Spasm- Primary Abnormal involuntary movements Spinal stenosis of lumbar region, unspecified whether neurogenic claudication present Right sided sciatica Sciatica Chronic pain syndrome Chronic pain of both knees Chronic midline low back pain with right-sided sciatica Cigarette nicotine dependence without complication Tobacco use disorder Encounter for long-term opiate analgesic use Encounter for long-term (current) use of other medications Acute pain of left shoulder Sciatica of right side- Primary Sciatica Right sided sciatica Sciatica Spinal stenosis of lumbar region, unspecified whether neurogenic claudication present Chronic pain syndrome Chronic pain of both knees Chronic midline low back pain with right-sided sciatica Spasm Abnormal involuntary movements Primary osteoarthritis of right hip Primary localized osteoarthrosis, pelvic region and thigh Cigarette nicotine dependence without complication Tobacco use disorder Encounter for long-term opiate analgesic use Encounter for long-term (current) use of other medications Cigarette nicotine dependence without complication- Primary Tobacco use disorder Spinal stenosis of lumbar region, unspecified whether neurogenic claudication present Right sided sciatica Sciatica Chronic pain syndrome Chronic pain of both knees Chronic midline low back pain with right-sided sciatica Primary osteoarthritis of right hip Primary localized osteoarthrosis, pelvic region and thigh Sciatica of right side Sciatica Spasm Abnormal involuntary movements Encounter for long-term opiate analgesic use Encounter for long-term (current) use of other medications Encounter for long-term opiate analgesic use- Primary Encounter for long-term (current) use of other medications Right sided sciatica Sciatica Spinal stenosis of lumbar region, unspecified whether neurogenic claudication present Chronic pain syndrome Chronic pain of both knees Chronic midline low back pain with right-sided sciatica Cigarette nicotine dependence without complication Tobacco use disorder Encounter for long-term opiate analgesic use- Primary Encounter for long-term (current) use of other medications Chronic pain syndrome Chronic pain of both knees Chronic midline low back pain with right-sided sciatica Spinal stenosis of lumbar region, unspecified whether neurogenic claudication present Right sided sciatica Sciatica Spasm Abnormal involuntary movements Cigarette nicotine dependence without complication Tobacco use disorder Sciatica of right side Sciatica Spasm- Primary Abnormal involuntary movements Chronic pain syndrome Chronic pain of both knees Chronic midline low back pain with right-sided sciatica Spinal stenosis of lumbar region, unspecified whether neurogenic claudication present Sciatica of right side Sciatica Primary osteoarthritis of right hip Primary localized osteoarthrosis, pelvic region and thigh Cigarette nicotine dependence without complication Tobacco use disorder Encounter for long-term opiate analgesic use Encounter for long-term (current) use of other medications Cigarette nicotine dependence without complication- Primary Tobacco use disorder Chronic pain syndrome Chronic pain of both knees Chronic midline low back pain with right-sided sciatica Spinal stenosis of lumbar region, unspecified whether neurogenic claudication present Encounter for long-term opiate analgesic use Encounter for long-term (current) use of other medications Other chronic pain- Primary Chronic pain syndrome Chronic pain of both knees Chronic midline low back pain with right-sided sciatica Spinal stenosis of lumbar region, unspecified whether neurogenic claudication present Right sided sciatica Sciatica Cigarette nicotine dependence without complication Tobacco use disorder Encounter for long-term opiate analgesic use Encounter for long-term (current) use of other medications Cigarette nicotine dependence without complication- Primary Tobacco use disorder Chronic pain syndrome Chronic pain of both knees Chronic midline low back pain with right-sided sciatica Spinal stenosis of lumbar region, unspecified whether neurogenic claudication present Encounter for long-term opiate analgesic use Encounter for long-term (current) use of other medications Primary osteoarthritis of right hip Primary localized osteoarthrosis, pelvic region and thigh Sciatica of right side Sciatica Muscle spasms of both lower extremities Chronic pain syndrome- Primary Cigarette nicotine dependence without complication Tobacco use disorder Chronic midline low back pain with right-sided sciatica Muscle spasms of both lower extremities Primary osteoarthritis of right hip Primary localized osteoarthrosis, pelvic region and thigh Sciatica of right side Sciatica Spasm Abnormal involuntary movements Spinal stenosis of lumbar region, unspecified whether neurogenic claudication present Encounter for long-term opiate analgesic use Encounter for long-term (current) use of other medications Chronic pain of both knees Right sided sciatica Sciatica Cigarette nicotine dependence without complication- Primary Tobacco use disorder Chronic pain syndrome Chronic pain of both knees Chronic midline low back pain with right-sided sciatica Spinal stenosis of lumbar region, unspecified whether neurogenic claudication present Right sided sciatica Sciatica Chronic left shoulder pain Pain in joint, shoulder region Other chronic pain Primary osteoarthritis of right hip Primary localized osteoarthrosis, pelvic region and thigh Spasm Abnormal involuntary movements Chronic midline low back pain with right-sided sciatica- Primary Chronic pain syndrome Chronic pain of both knees Spinal stenosis of lumbar region, unspecified whether neurogenic claudication present Cigarette nicotine dependence without complication Tobacco use disorder Encounter for long-term opiate analgesic use Encounter for long-term (current) use of other medications Primary osteoarthritis of right hip Primary localized osteoarthrosis, pelvic region and thigh Chronic pain of right knee Chronic midline low back pain with right-sided sciatica- Primary Right sided sciatica Sciatica Spinal stenosis of lumbar region, unspecified whether neurogenic claudication present Chronic pain syndrome Chronic pain of both knees Chronic left shoulder pain Pain in joint, shoulder region Cigarette nicotine dependence without complication Tobacco use disorder Muscle spasms of both lower extremities Spasm Abnormal involuntary movements Cigarette nicotine dependence without complication- Primary Tobacco use disorder Spinal stenosis of lumbar region, unspecified whether neurogenic claudication present Right sided sciatica Sciatica Chronic pain syndrome Chronic pain of both knees Chronic midline low back pain with right-sided sciatica Spasm Abnormal involuntary movements Hives Urticaria, unspecified Cigarette nicotine dependence without complication- Primary Tobacco use disorder Chronic pain syndrome Chronic pain of both knees Chronic midline low back pain with right-sided sciatica Spinal stenosis of lumbar region, unspecified whether neurogenic claudication present Encounter for long-term opiate analgesic use Encounter for long-term (current) use of other medications Primary osteoarthritis of right hip Primary localized osteoarthrosis, pelvic region and thigh Sciatica of right side Sciatica Cigarette nicotine dependence without complication- Primary Tobacco use disorder Chronic pain syndrome Chronic pain of both knees Chronic midline low back pain with right-sided sciatica Spinal stenosis of lumbar region, unspecified whether neurogenic claudication present Encounter for long-term opiate analgesic use Encounter for long-term (current) use of other medications Muscle spasms of both lower extremities Sciatica of right side Sciatica Chronic midline low back pain with right-sided sciatica- Primary Chronic pain syndrome Chronic pain of both knees Spinal stenosis of lumbar region, unspecified whether neurogenic claudication present Chronic left shoulder pain Pain in joint, shoulder region Cigarette nicotine dependence without complication Tobacco use disorder Encounter for long-term opiate analgesic use Encounter for long-term (current) use of other medications Muscle spasms of both lower extremities Spasm Abnormal involuntary movements Cigarette nicotine dependence without complication- Primary Tobacco use disorder Chronic pain syndrome Chronic pain of both knees Chronic midline low back pain with right-sided sciatica Spinal stenosis of lumbar region, unspecified whether neurogenic claudication present Right sided sciatica Sciatica Spasm Abnormal involuntary movements Chronic midline low back pain without sciatica Encounter for long-term opiate analgesic use Encounter for long-term (current) use of other medications Primary osteoarthritis of right hip Primary localized osteoarthrosis, pelvic region and thigh Sciatica of right side Sciatica Chronic midline low back pain with right-sided sciatica- Primary Chronic pain of both knees Spinal stenosis of lumbar region, unspecified whether neurogenic claudication present Acute pain of left shoulder Cigarette nicotine dependence without complication Tobacco use disorder Encounter for long-term opiate analgesic use Encounter for long-term (current) use of other medications Muscle spasms of both lower extremities Spasm Abnormal involuntary movements Chronic pain syndrome Chronic left shoulder pain- Primary Pain in joint, shoulder region Chronic pain syndrome Chronic pain of both knees Chronic midline low back pain with right-sided sciatica Spinal stenosis of lumbar region, unspecified whether neurogenic claudication present Right sided sciatica Sciatica Cigarette nicotine dependence without complication Tobacco use disorder Muscle spasms of both lower extremities Chronic left shoulder pain- Primary Pain in joint, shoulder region Chronic pain syndrome Cigarette nicotine dependence without complication Tobacco use disorder Encounter for long-term opiate analgesic use Encounter for long-term (current) use of other medications Muscle spasms of both lower extremities Primary osteoarthritis of right hip Primary localized osteoarthrosis, pelvic region and thigh Sciatica of right side Sciatica Spinal stenosis of lumbar region, unspecified whether neurogenic claudication present Right sided sciatica Sciatica Spasm Abnormal involuntary movements Chronic midline low back pain without sciatica Chronic pain of both knees Chronic midline low back pain with right-sided sciatica Spinal stenosis of lumbar region, unspecified whether neurogenic claudication present- Primary Spasm Abnormal involuntary movements Right sided sciatica Sciatica Chronic pain of both knees Chronic midline low back pain with right-sided sciatica Encounter for long-term opiate analgesic use Encounter for long-term (current) use of other medications Muscle spasms of both lower extremities Other chronic pain Chronic pain syndrome Cigarette nicotine dependence without complication Tobacco use disorder Acute pain of left shoulder- Primary Spinal stenosis of lumbar region, unspecified whether neurogenic claudication present Right sided sciatica Sciatica Chronic pain syndrome Chronic pain of both knees Chronic midline low back pain with right-sided sciatica Cigarette nicotine dependence without complication Tobacco use disorder Pain of left hip- Primary Right sided sciatica Sciatica Spasm Abnormal involuntary movements Chronic midline low back pain without sciatica Chronic pain of both knees Other chronic pain Atherosclerosis of coronary artery of [place] heart without angina pectoris, unspecified vessel or lesion type Spinal stenosis of lumbar region, unspecified whether neurogenic claudication present Chronic pain syndrome Chronic midline low back pain with right-sided sciatica Generalized anxiety disorder Cigarette nicotine dependence without complication Tobacco use disorder Chronic midline low back pain with right-sided sciatica- Primary Chronic left shoulder pain Pain in joint, shoulder region Primary osteoarthritis of right hip Primary localized osteoarthrosis, pelvic region and thigh Right sided sciatica Sciatica Sciatica of right side Sciatica Spasm Abnormal involuntary movements Spinal stenosis of lumbar region, unspecified whether neurogenic claudication present Chronic pain of both knees Chronic pain syndrome Encounter for long-term opiate analgesic use Encounter for long-term (current) use of other medications Cigarette nicotine dependence without complication Tobacco use disorder Cigarette nicotine dependence without complication- Primary Tobacco use disorder Right sided sciatica Sciatica Spasm Abnormal involuntary movements Chronic midline low back pain without sciatica Chronic pain syndrome Spinal stenosis of lumbar region, unspecified whether neurogenic claudication present Chronic pain of both knees Chronic midline low back pain with right-sided sciatica Spinal stenosis of lumbar region, unspecified whether neurogenic claudication present- Primary Chronic pain of both knees Chronic midline low back pain with right-sided sciatica Spasm Abnormal involuntary movements Chronic left shoulder pain Pain in joint, shoulder region Chronic pain syndrome Encounter for long-term opiate analgesic use Encounter for long-term (current) use of other medications Cigarette nicotine dependence without complication [facility] Spinal stenosis of lumbar region- Primary Spinal stenosis, lumbar region, without neurogenic claudication Primary osteoarthritis of right hip Primary localized osteoarthrosis, pelvic region and thigh Sciatica of right side Sciatica Encounter for long-term opiate analgesic use Encounter for long-term (current) use of other medications Chronic pain of both knees- Primary Chronic midline low back pain with right-sided sciatica Spasm Abnormal involuntary movements Spinal stenosis of lumbar region, unspecified whether neurogenic claudication present Primary osteoarthritis of right hip Primary localized osteoarthrosis, pelvic region and thigh Sciatica of right side Sciatica Encounter for long-term opiate analgesic use Encounter for long-term (current) use of other medications Chronic pain of both knees- Primary Chronic midline low back pain with right-sided sciatica Spasm Abnormal involuntary movements Spinal stenosis of lumbar region, unspecified whether neurogenic claudication present Primary osteoarthritis of right hip Primary localized osteoarthrosis, pelvic region and thigh Sciatica of right side Sciatica Encounter for long-term opiate analgesic use Encounter for long-term (current) use of other medications Chronic pain syndrome Oral abscess Cellulitis and abscess of oral soft tissues Sciatica of right side- Primary Sciatica Spinal stenosis of lumbar region, unspecified whether neurogenic claudication present Chronic pain of both knees Chronic midline low back pain with right-sided sciatica Primary osteoarthritis of right hip Primary localized osteoarthrosis, pelvic region and thigh Chronic pain syndrome Right sided sciatica Sciatica Encounter for long-term opiate analgesic use Encounter for long-term (current) use of other medications Spasm- Primary Abnormal involuntary movements Spinal stenosis of lumbar region, unspecified whether neurogenic claudication present Chronic pain of both knees Chronic midline low back pain with right-sided sciatica Primary osteoarthritis of right hip Primary localized osteoarthrosis, pelvic region and thigh Chronic pain syndrome Cigarette nicotine dependence without complication Tobacco use disorder Sciatica of right side Sciatica Encounter for long-term opiate analgesic use Encounter for long-term (current) use of other medications Chronic midline low back pain with right-sided sciatica- Primary Sciatica of right side Sciatica Spasm Abnormal involuntary movements Spinal stenosis of lumbar region, unspecified whether neurogenic claudication present Primary osteoarthritis of right hip Primary localized osteoarthrosis, pelvic region and thigh Chronic pain syndrome Cigarette nicotine dependence without complication Tobacco use disorder Encounter for long-term opiate analgesic use Encounter for long-term (current) use of other medications Chronic pain syndrome- Primary Right sided sciatica Sciatica Cigarette nicotine dependence without complication Tobacco use disorder Chronic pain of both knees Chronic midline low back pain with right-sided sciatica Spasm Abnormal involuntary movements Spinal stenosis of lumbar region, unspecified whether neurogenic claudication present Primary osteoarthritis of right hip Primary localized osteoarthrosis, pelvic region and thigh Sciatica of right side Sciatica Encounter for long-term opiate analgesic use Encounter for long-term (current) use of other medications Chronic pain syndrome Chronic pain of both knees Chronic midline low back pain with right-sided sciatica Spinal stenosis of lumbar region, unspecified whether neurogenic claudication present Right sided sciatica Sciatica Spasm Abnormal involuntary movements Acute pain of left shoulder Spasm- Primary Abnormal involuntary movements Spinal stenosis of lumbar region, unspecified whether neurogenic claudication present Right sided sciatica Sciatica Chronic pain syndrome Chronic pain of both knees Chronic midline low back pain with right-sided sciatica Cigarette nicotine dependence without complication Tobacco use disorder Encounter for long-term opiate analgesic use Encounter for long-term (current) use of other medications Acute pain of left shoulder Sciatica of right side- Primary Sciatica Right sided sciatica Sciatica Spinal stenosis of lumbar region, unspecified whether neurogenic claudication present Chronic pain syndrome Chronic pain of both knees Chronic midline low back pain with right-sided sciatica Spasm Abnormal involuntary movements Primary osteoarthritis of right hip Primary localized osteoarthrosis, pelvic region and thigh Cigarette nicotine dependence without complication Tobacco use disorder Encounter for long-term opiate analgesic use Encounter for long-term (current) use of other medications Cigarette nicotine dependence without complication- Primary Tobacco use disorder Spinal stenosis of lumbar region, unspecified whether neurogenic claudication present Right sided sciatica Sciatica Chronic pain syndrome Chronic pain of both knees Chronic midline low back pain with right-sided sciatica Primary osteoarthritis of right hip Primary localized osteoarthrosis, pelvic region and thigh Sciatica of right side Sciatica Spasm Abnormal involuntary movements Encounter for long-term opiate analgesic use Encounter for long-term (current) use of other medications Encounter for long-term opiate analgesic use- Primary Encounter for long-term (current) use of other medications Right sided sciatica Sciatica Spinal stenosis of lumbar region, unspecified whether neurogenic claudication present Chronic pain syndrome Chronic pain of both knees Chronic midline low back pain with right-sided sciatica Cigarette nicotine dependence without complication Tobacco use disorder Encounter for long-term opiate analgesic use- Primary Encounter for long-term (current) use of other medications Chronic pain syndrome Chronic pain of both knees Chronic midline low back pain with right-sided sciatica Spinal stenosis of lumbar region, unspecified whether neurogenic claudication present Right sided sciatica Sciatica Spasm Abnormal involuntary movements Cigarette nicotine dependence without complication Tobacco use disorder Sciatica of right side Sciatica Spasm- Primary Abnormal involuntary movements Chronic pain syndrome Chronic pain of both knees Chronic midline low back pain with right-sided sciatica Spinal stenosis of lumbar region, unspecified whether neurogenic claudication present Sciatica of right side Sciatica Primary osteoarthritis of right hip Primary localized osteoarthrosis, pelvic region and thigh Cigarette nicotine dependence without complication Tobacco use disorder Encounter for long-term opiate analgesic use Encounter for long-term (current) use of other medications Cigarette nicotine dependence without complication- Primary Tobacco use disorder Chronic pain syndrome Chronic pain of both knees Chronic midline low back pain with right-sided sciatica Spinal stenosis of lumbar region, unspecified whether neurogenic claudication present Encounter for long-term opiate analgesic use Encounter for long-term (current) use of other medications Other chronic pain- Primary Chronic pain syndrome Chronic pain of both knees Chronic midline low back pain with right-sided sciatica Spinal stenosis of lumbar region, unspecified whether neurogenic claudication present Right sided sciatica Sciatica Cigarette nicotine dependence without complication Tobacco use disorder Encounter for long-term opiate analgesic use Encounter for long-term (current) use of other medications Cigarette nicotine dependence without complication- Primary Tobacco use disorder Chronic pain syndrome Chronic pain of both knees Chronic midline low back pain with right-sided sciatica Spinal stenosis of lumbar region, unspecified whether neurogenic claudication present Encounter for long-term opiate analgesic use Encounter for long-term (current) use of other medications Primary osteoarthritis of right hip Primary localized osteoarthrosis, pelvic region and thigh Sciatica of right side Sciatica Muscle spasms of both lower extremities Chronic pain syndrome- Primary Cigarette nicotine dependence without complication Tobacco use disorder Chronic midline low back pain with right-sided sciatica Muscle spasms of both lower extremities Primary osteoarthritis of right hip Primary localized osteoarthrosis, pelvic region and thigh Sciatica of right side Sciatica Spasm Abnormal involuntary movements Spinal stenosis of lumbar region, unspecified whether neurogenic claudication present Encounter for long-term opiate analgesic use Encounter for long-term (current) use of other medications Chronic pain of both knees Right sided sciatica Sciatica Cigarette nicotine dependence without complication- Primary Tobacco use disorder Chronic pain syndrome Chronic pain of both knees Chronic midline low back pain with right-sided sciatica Spinal stenosis of lumbar region, unspecified whether neurogenic claudication present Right sided sciatica Sciatica Chronic left shoulder pain Pain in joint, shoulder region Other chronic pain Primary osteoarthritis of right hip Primary localized osteoarthrosis, pelvic region and thigh Spasm Abnormal involuntary movements Chronic midline low back pain with right-sided sciatica- Primary Chronic pain syndrome Chronic pain of both knees Spinal stenosis of lumbar region, unspecified whether neurogenic claudication present Cigarette nicotine dependence without complication Tobacco use disorder Encounter for long-term opiate analgesic use Encounter for long-term (current) use of other medications Primary osteoarthritis of right hip Primary localized osteoarthrosis, pelvic region and thigh Chronic pain of right knee Chronic midline low back pain with right-sided sciatica- Primary Right sided sciatica Sciatica Spinal stenosis of lumbar region, unspecified whether neurogenic claudication present Chronic pain syndrome Chronic pain of both knees Chronic left shoulder pain Pain in joint, shoulder region Cigarette nicotine dependence without complication Tobacco use disorder Muscle spasms of both lower extremities Spasm Abnormal involuntary movements Cigarette nicotine dependence without complication- Primary Tobacco use disorder Spinal stenosis of lumbar region, unspecified whether neurogenic claudication present Right sided sciatica Sciatica Chronic pain syndrome Chronic pain of both knees Chronic midline low back pain with right-sided sciatica Spasm Abnormal involuntary movements Hives Urticaria, unspecified Cigarette nicotine dependence without complication- Primary Tobacco use disorder Chronic pain syndrome Chronic pain of both knees Chronic midline low back pain with right-sided sciatica Spinal stenosis of lumbar region, unspecified whether neurogenic claudication present Encounter for long-term opiate analgesic use Encounter for long-term (current) use of other medications Primary osteoarthritis of right hip Primary localized osteoarthrosis, pelvic region and thigh Sciatica of right side Sciatica Cigarette nicotine dependence without complication- Primary Tobacco use disorder Chronic pain syndrome Chronic pain of both knees Chronic midline low back pain with right-sided sciatica Spinal stenosis of lumbar region, unspecified whether neurogenic claudication present Encounter for long-term opiate analgesic use Encounter for long-term (current) use of other medications Muscle spasms of both lower extremities Sciatica of right side Sciatica Chronic midline low back pain with right-sided sciatica- Primary Chronic pain syndrome Chronic pain of both knees Spinal stenosis of lumbar region, unspecified whether neurogenic claudication present Chronic left shoulder pain Pain in joint, shoulder region Cigarette nicotine dependence without complication Tobacco use disorder Encounter for long-term opiate analgesic use Encounter for long-term (current) use of other medications Muscle spasms of both lower extremities Spasm Abnormal involuntary movements Cigarette nicotine dependence without complication- Primary Tobacco use disorder Chronic pain syndrome Chronic pain of both knees Chronic midline low back pain with right-sided sciatica Spinal stenosis of lumbar region, unspecified whether neurogenic claudication present Right sided sciatica Sciatica Spasm Abnormal involuntary movements Chronic midline low back pain without sciatica Encounter for long-term opiate analgesic use Encounter for long-term (current) use of other medications Primary osteoarthritis of right hip Primary localized osteoarthrosis, pelvic region and thigh Sciatica of right side Sciatica Chronic midline low back pain with right-sided sciatica- Primary Chronic pain of both knees Spinal stenosis of lumbar region, unspecified whether neurogenic claudication present Acute pain of left shoulder Cigarette nicotine dependence without complication Tobacco use disorder Encounter for long-term opiate analgesic use Encounter for long-term (current) use of other medications Muscle spasms of both lower extremities Spasm Abnormal involuntary movements Chronic pain syndrome Chronic left shoulder pain- Primary Pain in joint, shoulder region Chronic pain syndrome Chronic pain of both knees Chronic midline low back pain with right-sided sciatica Spinal stenosis of lumbar region, unspecified whether neurogenic claudication present Right sided sciatica Sciatica Cigarette nicotine dependence without complication Tobacco use disorder Muscle spasms of both lower extremities Chronic left shoulder pain- Primary Pain in joint, shoulder region Chronic pain syndrome Cigarette nicotine dependence without complication Tobacco use disorder Encounter for long-term opiate analgesic use Encounter for long-term (current) use of other medications Muscle spasms of both lower extremities Primary osteoarthritis of right hip Primary localized osteoarthrosis, pelvic region and thigh Sciatica of right side Sciatica Spinal stenosis of lumbar region, unspecified whether neurogenic claudication present Right sided sciatica Sciatica Spasm Abnormal involuntary movements Chronic midline low back pain without sciatica Chronic pain of both knees Chronic midline low back pain with right-sided sciatica Spinal stenosis of lumbar region, unspecified whether neurogenic claudication present- Primary Spasm Abnormal involuntary movements Right sided sciatica Sciatica Chronic pain of both knees Chronic midline low back pain with right-sided sciatica Encounter for long-term opiate analgesic use Encounter for long-term (current) use of other medications Muscle spasms of both lower extremities Other chronic pain Chronic pain syndrome Cigarette nicotine dependence without complication Tobacco use disorder Acute pain of left shoulder- Primary Spinal stenosis of lumbar region, unspecified whether neurogenic claudication present Right sided sciatica Sciatica Chronic pain syndrome Chronic pain of both knees Chronic midline low back pain with right-sided sciatica Cigarette nicotine dependence without complication Tobacco use disorder Pain of left hip- Primary Right sided sciatica Sciatica Spasm Abnormal involuntary movements Chronic midline low back pain without sciatica Chronic pain of both knees Other chronic pain Atherosclerosis of coronary artery of [place] heart without angina pectoris, unspecified vessel or lesion type Spinal stenosis of lumbar region, unspecified whether neurogenic claudication present Chronic pain syndrome Chronic midline low back pain with right-sided sciatica Generalized anxiety disorder Cigarette nicotine dependence without complication Tobacco use disorder Chronic midline low back pain with right-sided sciatica- Primary Chronic left shoulder pain Pain in joint, shoulder region Primary osteoarthritis of right hip Primary localized osteoarthrosis, pelvic region and thigh Right sided sciatica Sciatica Sciatica of right side Sciatica Spasm Abnormal involuntary movements Spinal stenosis of lumbar region, unspecified whether neurogenic claudication present Chronic pain of both knees Chronic pain syndrome Encounter for long-term opiate analgesic use Encounter for long-term (current) use of other medications Cigarette nicotine dependence without complication Tobacco use disorder Cigarette nicotine dependence without complication- Primary Tobacco use disorder Right sided sciatica Sciatica Spasm Abnormal involuntary movements Chronic midline low back pain without sciatica Chronic pain syndrome Spinal stenosis of lumbar region, unspecified whether neurogenic claudication present Chronic pain of both knees Chronic midline low back pain with right-sided sciatica Spinal stenosis of lumbar region, unspecified whether neurogenic claudication present- Primary Chronic pain of both knees Chronic midline low back pain with right-sided sciatica Spasm Abnormal involuntary movements Chronic left shoulder pain Pain in joint, shoulder region Chronic pain syndrome Encounter for long-term opiate analgesic use Encounter for long-term (current) use of other medications Cigarette nicotine dependence without complication Tobacco use disorder Cigarette nicotine dependence without complication- Primary Tobacco use disorder Right sided sciatica Sciatica Spinal stenosis of lumbar region, unspecified whether neurogenic claudication present Chronic pain syndrome Chronic pain of both knees Chronic midline low back pain with right-sided sciatica Other chronic pain Atherosclerosis of coronary artery of [place] heart without angina pectoris, unspecified vessel or lesion type High risk medication use Encounter for long-term (current) use of other medications Encounter for long-term opiate analgesic use Encounter for long-term (current) use of other medications [facility] Spinal stenosis of lumbar region- Primary Spinal stenosis, lumbar region, without neurogenic claudication Primary osteoarthritis of right hip Primary localized osteoarthrosis, pelvic region and thigh Sciatica of right side Sciatica Encounter for long-term opiate analgesic use Encounter for long-term (current) use of other medications Chronic pain of both knees- Primary Chronic midline low back pain with right-sided sciatica Spasm Abnormal involuntary movements Spinal stenosis of lumbar region, unspecified whether neurogenic claudication present Primary osteoarthritis of right hip Primary localized osteoarthrosis, pelvic region and thigh Sciatica of right side Sciatica Encounter for long-term opiate analgesic use Encounter for long-term (current) use of other medications Chronic pain of both knees- Primary Chronic midline low back pain with right-sided sciatica Spasm Abnormal involuntary movements Spinal stenosis of lumbar region, unspecified whether neurogenic claudication present Primary osteoarthritis of right hip Primary localized osteoarthrosis, pelvic region and thigh Sciatica of right side Sciatica Encounter for long-term opiate analgesic use Encounter for long-term (current) use of other medications Chronic pain syndrome Oral abscess Cellulitis and abscess of oral soft tissues Sciatica of right side- Primary Sciatica Spinal stenosis of lumbar region, unspecified whether neurogenic claudication present Chronic pain of both knees Chronic midline low back pain with right-sided sciatica Primary osteoarthritis of right hip Primary localized osteoarthrosis, pelvic region and thigh Chronic pain syndrome Right sided sciatica Sciatica Encounter for long-term opiate analgesic use Encounter for long-term (current) use of other medications Spasm- Primary Abnormal involuntary movements Spinal stenosis of lumbar region, unspecified whether neurogenic claudication present Chronic pain of both knees Chronic midline low back pain with right-sided sciatica Primary osteoarthritis of right hip Primary localized osteoarthrosis, pelvic region and thigh Chronic pain syndrome Cigarette nicotine dependence without complication Tobacco use disorder Sciatica of right side Sciatica Encounter for long-term opiate analgesic use Encounter for long-term (current) use of other medications Chronic midline low back pain with right-sided sciatica- Primary Sciatica of right side Sciatica Spasm Abnormal involuntary movements Spinal stenosis of lumbar region, unspecified whether neurogenic claudication present Primary osteoarthritis of right hip Primary localized osteoarthrosis, pelvic region and thigh Chronic pain syndrome Cigarette nicotine dependence without complication Tobacco use disorder Encounter for long-term opiate analgesic use Encounter for long-term (current) use of other medications Chronic pain syndrome- Primary Right sided sciatica Sciatica Cigarette nicotine dependence without complication Tobacco use disorder Chronic pain of both knees Chronic midline low back pain with right-sided sciatica Spasm Abnormal involuntary movements Spinal stenosis of lumbar region, unspecified whether neurogenic claudication present Primary osteoarthritis of right hip Primary localized osteoarthrosis, pelvic region and thigh Sciatica of right side Sciatica Encounter for long-term opiate analgesic use Encounter for long-term (current) use of other medications Chronic pain syndrome Chronic pain of both knees Chronic midline low back pain with right-sided sciatica Spinal stenosis of lumbar region, unspecified whether neurogenic claudication present Right sided sciatica Sciatica Spasm Abnormal involuntary movements Acute pain of left shoulder Spasm- Primary Abnormal involuntary movements Spinal stenosis of lumbar region, unspecified whether neurogenic claudication present Right sided sciatica Sciatica Chronic pain syndrome Chronic pain of both knees Chronic midline low back pain with right-sided sciatica Cigarette nicotine dependence without complication Tobacco use disorder Encounter for long-term opiate analgesic use Encounter for long-term (current) use of other medications Acute pain of left shoulder Sciatica of right side- Primary Sciatica Right sided sciatica Sciatica Spinal stenosis of lumbar region, unspecified whether neurogenic claudication present Chronic pain syndrome Chronic pain of both knees Chronic midline low back pain with right-sided sciatica Spasm Abnormal involuntary movements Primary osteoarthritis of right hip Primary localized osteoarthrosis, pelvic region and thigh Cigarette nicotine dependence without complication Tobacco use disorder Encounter for long-term opiate analgesic use Encounter for long-term (current) use of other medications Cigarette nicotine dependence without complication- Primary Tobacco use disorder Spinal stenosis of lumbar region, unspecified whether neurogenic claudication present Right sided sciatica Sciatica Chronic pain syndrome Chronic pain of both knees Chronic midline low back pain with right-sided sciatica Primary osteoarthritis of right hip Primary localized osteoarthrosis, pelvic region and thigh Sciatica of right side Sciatica Spasm Abnormal involuntary movements Encounter for long-term opiate analgesic use Encounter for long-term (current) use of other medications Encounter for long-term opiate analgesic use- Primary Encounter for long-term (current) use of other medications Right sided sciatica Sciatica Spinal stenosis of lumbar region, unspecified whether neurogenic claudication present Chronic pain syndrome Chronic pain of both knees Chronic midline low back pain with right-sided sciatica Cigarette nicotine dependence without complication Tobacco use disorder Encounter for long-term opiate analgesic use- Primary Encounter for long-term (current) use of other medications Chronic pain syndrome Chronic pain of both knees Chronic midline low back pain with right-sided sciatica Spinal stenosis of lumbar region, unspecified whether neurogenic claudication present Right sided sciatica Sciatica Spasm Abnormal involuntary movements Cigarette nicotine dependence without complication Tobacco use disorder Sciatica of right side Sciatica Spasm- Primary Abnormal involuntary movements Chronic pain syndrome Chronic pain of both knees Chronic midline low back pain with right-sided sciatica Spinal stenosis of lumbar region, unspecified whether neurogenic claudication present Sciatica of right side Sciatica Primary osteoarthritis of right hip Primary localized osteoarthrosis, pelvic region and thigh Cigarette nicotine dependence without complication Tobacco use disorder Encounter for long-term opiate analgesic use Encounter for long-term (current) use of other medications Cigarette nicotine dependence without complication- Primary Tobacco use disorder Chronic pain syndrome Chronic pain of both knees Chronic midline low back pain with right-sided sciatica Spinal stenosis of lumbar region, unspecified whether neurogenic claudication present Encounter for long-term opiate analgesic use Encounter for long-term (current) use of other medications Other chronic pain- Primary Chronic pain syndrome Chronic pain of both knees Chronic midline low back pain with right-sided sciatica Spinal stenosis of lumbar region, unspecified whether neurogenic claudication present Right sided sciatica Sciatica Cigarette nicotine dependence without complication Tobacco use disorder Encounter for long-term opiate analgesic use Encounter for long-term (current) use of other medications Cigarette nicotine dependence without complication- Primary Tobacco use disorder Chronic pain syndrome Chronic pain of both knees Chronic midline low back pain with right-sided sciatica Spinal stenosis of lumbar region, unspecified whether neurogenic claudication present Encounter for long-term opiate analgesic use Encounter for long-term (current) use of other medications Primary osteoarthritis of right hip Primary localized osteoarthrosis, pelvic region and thigh Sciatica of right side Sciatica Muscle spasms of both lower extremities Chronic pain syndrome- Primary Cigarette nicotine dependence without complication Tobacco use disorder Chronic midline low back pain with right-sided sciatica Muscle spasms of both lower extremities Primary osteoarthritis of right hip Primary localized osteoarthrosis, pelvic region and thigh Sciatica of right side Sciatica Spasm Abnormal involuntary movements Spinal stenosis of lumbar region, unspecified whether neurogenic claudication present Encounter for long-term opiate analgesic use Encounter for long-term (current) use of other medications Chronic pain of both knees Right sided sciatica Sciatica Cigarette nicotine dependence without complication- Primary Tobacco use disorder Chronic pain syndrome Chronic pain of both knees Chronic midline low back pain with right-sided sciatica Spinal stenosis of lumbar region, unspecified whether neurogenic claudication present Right sided sciatica Sciatica Chronic left shoulder pain Pain in joint, shoulder region Other chronic pain Primary osteoarthritis of right hip Primary localized osteoarthrosis, pelvic region and thigh Spasm Abnormal involuntary movements Chronic midline low back pain with right-sided sciatica- Primary Chronic pain syndrome Chronic pain of both knees Spinal stenosis of lumbar region, unspecified whether neurogenic claudication present Cigarette nicotine dependence without complication Tobacco use disorder Encounter for long-term opiate analgesic use Encounter for long-term (current) use of other medications Primary osteoarthritis of right hip Primary localized osteoarthrosis, pelvic region and thigh Chronic pain of right knee Chronic midline low back pain with right-sided sciatica- Primary Right sided sciatica Sciatica Spinal stenosis of lumbar region, unspecified whether neurogenic claudication present Chronic pain syndrome Chronic pain of both knees Chronic left shoulder pain Pain in joint, shoulder region Cigarette nicotine dependence without complication Tobacco use disorder Muscle spasms of both lower extremities Spasm Abnormal involuntary movements Cigarette nicotine dependence without complication- Primary Tobacco use disorder Spinal stenosis of lumbar region, unspecified whether neurogenic claudication present Right sided sciatica Sciatica Chronic pain syndrome Chronic pain of both knees Chronic midline low back pain with right-sided sciatica Spasm Abnormal involuntary movements Hives Urticaria, unspecified Cigarette nicotine dependence without complication- Primary Tobacco use disorder Chronic pain syndrome Chronic pain of both knees Chronic midline low back pain with right-sided sciatica Spinal stenosis of lumbar region, unspecified whether neurogenic claudication present Encounter for long-term opiate analgesic use Encounter for long-term (current) use of other medications Primary osteoarthritis of right hip Primary localized osteoarthrosis, pelvic region and thigh Sciatica of right side Sciatica Cigarette nicotine dependence without complication- Primary Tobacco use disorder Chronic pain syndrome Chronic pain of both knees Chronic midline low back pain with right-sided sciatica Spinal stenosis of lumbar region, unspecified whether neurogenic claudication present Encounter for long-term opiate analgesic use Encounter for long-term (current) use of other medications Muscle spasms of both lower extremities Sciatica of right side Sciatica Chronic midline low back pain with right-sided sciatica- Primary Chronic pain syndrome Chronic pain of both knees Spinal stenosis of lumbar region, unspecified whether neurogenic claudication present Chronic left shoulder pain Pain in joint, shoulder region Cigarette nicotine dependence without complication Tobacco use disorder Encounter for long-term opiate analgesic use Encounter for long-term (current) use of other medications Muscle spasms of both lower extremities Spasm Abnormal involuntary movements Cigarette nicotine dependence without complication- Primary Tobacco use disorder Chronic pain syndrome Chronic pain of both knees Chronic midline low back pain with right-sided sciatica Spinal stenosis of lumbar region, unspecified whether neurogenic claudication present Right sided sciatica Sciatica Spasm Abnormal involuntary movements Chronic midline low back pain without sciatica Encounter for long-term opiate analgesic use Encounter for long-term (current) use of other medications Primary osteoarthritis of right hip Primary localized osteoarthrosis, pelvic region and thigh Sciatica of right side Sciatica Chronic midline low back pain with right-sided sciatica- Primary Chronic pain of both knees Spinal stenosis of lumbar region, unspecified whether neurogenic claudication present Acute pain of left shoulder Cigarette nicotine dependence without complication Tobacco use disorder Encounter for long-term opiate analgesic use Encounter for long-term (current) use of other medications Muscle spasms of both lower extremities Spasm Abnormal involuntary movements Chronic pain syndrome Chronic left shoulder pain- Primary Pain in joint, shoulder region Chronic pain syndrome Chronic pain of both knees Chronic midline low back pain with right-sided sciatica Spinal stenosis of lumbar region, unspecified whether neurogenic claudication present Right sided sciatica Sciatica Cigarette nicotine dependence without complication Tobacco use disorder Muscle spasms of both lower extremities Chronic left shoulder pain- Primary Pain in joint, shoulder region Chronic pain syndrome Cigarette nicotine dependence without complication Tobacco use disorder Encounter for long-term opiate analgesic use Encounter for long-term (current) use of other medications Muscle spasms of both lower extremities Primary osteoarthritis of right hip Primary localized osteoarthrosis, pelvic region and thigh Sciatica of right side Sciatica Spinal stenosis of lumbar region, unspecified whether neurogenic claudication present Right sided sciatica Sciatica Spasm Abnormal involuntary movements Chronic midline low back pain without sciatica Chronic pain of both knees Chronic midline low back pain with right-sided sciatica Spinal stenosis of lumbar region, unspecified whether neurogenic claudication present- Primary Spasm Abnormal involuntary movements Right sided sciatica Sciatica Chronic pain of both knees Chronic midline low back pain with right-sided sciatica Encounter for long-term opiate analgesic use Encounter for long-term (current) use of other medications Muscle spasms of both lower extremities Other chronic pain Chronic pain syndrome Cigarette nicotine dependence without complication Tobacco use disorder Acute pain of left shoulder- Primary Spinal stenosis of lumbar region, unspecified whether neurogenic claudication present Right sided sciatica Sciatica Chronic pain syndrome Chronic pain of both knees Chronic midline low back pain with right-sided sciatica Cigarette nicotine dependence without complication Tobacco use disorder Pain of left hip- Primary Right sided sciatica Sciatica Spasm Abnormal involuntary movements Chronic midline low back pain without sciatica Chronic pain of both knees Other chronic pain Atherosclerosis of coronary artery of paimi[place] heart without angina pectoris, unspecified vessel or lesion type Spinal stenosis of lumbar region, unspecified whether neurogenic claudication present Chronic pain syndrome Chronic midline low back pain with right-sided sciatica Generalized anxiety disorder Cigarette nicotine dependence without complication Tobacco use disorder Chronic midline low back pain with right-sided sciatica- Primary Chronic left shoulder pain Pain in joint, shoulder region Primary osteoarthritis of right hip Primary localized osteoarthrosis, pelvic region and thigh Right sided sciatica Sciatica Sciatica of right side Sciatica Spasm Abnormal involuntary movements Spinal stenosis of lumbar region, unspecified whether neurogenic claudication present Chronic pain of both knees Chronic pain syndrome Encounter for long-term opiate analgesic use Encounter for long-term (current) use of other medications Cigarette nicotine dependence without complication Tobacco use disorder Cigarette nicotine dependence without complication- Primary Tobacco use disorder Right sided sciatica Sciatica Spasm Abnormal involuntary movements Chronic midline low back pain without sciatica Chronic pain syndrome Spinal stenosis of lumbar region, unspecified whether neurogenic claudication present Chronic pain of both knees Chronic midline low back pain with right-sided sciatica Spinal stenosis of lumbar region, unspecified whether neurogenic claudication present- Primary Chronic pain of both knees Chronic midline low back pain with right-sided sciatica Spasm Abnormal involuntary movements Chronic left shoulder pain Pain in joint, shoulder region Chronic pain syndrome Encounter for long-term opiate analgesic use Encounter for long-term (current) use of other medications Cigarette nicotine dependence without complication Tobacco use disorder Cigarette nicotine dependence without complication- Primary Tobacco use disorder Right sided sciatica Sciatica Spinal stenosis of lumbar region, unspecified whether neurogenic claudication present Chronic pain syndrome Chronic pain of both knees Chronic midline low back pain with right-sided sciatica Other chronic pain Atherosclerosis of coronary artery of paimi[place] heart without angina pectoris, unspecified vessel or lesion type High risk medication use Encounter for long-term (current) use of other medications Encounter for long-term opiate analgesic use Encounter for long-term (current) use of other medications Chronic left shoulder pain- Primary Pain in [...] of both knees documented [facility] this [facility] noteNo assessment information availablePrem[facility] Work Phone: Instructions* Attachments The following attachments cannot be sent through Care Everywhere. * Stretching Exercises for Your Hips and Knees ([facility]) (Turkmen) documented in this encounterMckitrick HospitalReason for referral (narrative)No reason for referral information availableR[facility] Work Phone: Reason for Referral Status Reason Specialty Diagnoses / Procedures Referred By Contact Referred To Contact New Request Physical Therapy Diagnoses Spinal stenosis of lumbar region, unspecified whether neurogenic claudication present Sciatica of right side Primary osteoarthritis of right hip Yoli Romero MD [address] [place] [address] Scheduling Instructions . Status Reason Specialty Diagnoses / Procedures Referred By Contact Referred To Contact New Request Diagnoses Chronic midline low back pain with right-sided sciatica Spinal stenosis of lumbar region, unspecified whether neurogenic claudication present Procedures XR SPINE LUMBOSACRAL 5 VIEWS Ede Richard, EMPLOYEE COUNSELOR-GERIATRIC NURSE [address] [place] [address] Status Reason Specialty Diagnoses / Procedures Referred By Contact Referred To Contact New Request Diagnoses Flank pain Procedures CT ABDOMEN/PELVIS WITHOUT CONTRAST CHG CT SCAN,ABDOMENT AND PELVIS,W/O CONTRAST Ede Richard [facility] [address] [place] [address] Status Reason Specialty Diagnoses / Procedures Referred By Contact Referred To Contact New Request Diagnoses Skin lesions Yoli Romero MD [address] [phone] Specialty Diagnoses / Procedures Referred By Contac t Referred To Contact Diagnoses Chronic left-sided low back pain with bilateral sciatica Yoli Romero MD [address] [phone] Referral ID Status Reason Start Date Expiration Date V isits Requested Visits Authorized [id number] Patient to Arrange 10/05/2022 10/30/2023 1 1 Specialty Diagnoses / Procedures Referred By Contac t Referred To Contact Diagnoses Pain of left hip Ede Richard EMPLOYEE COUNSELOR-GERIATRIC NURSE [phone] [facility], Other [address] [place], [place] [id number] Referral ID Status Reason Start Date Expiration Date V isits Requested Visits Authorized [id number] New Request 11/05/2023 11/29/2024 1 1 Specialty Diagnoses / Procedures Referred By Contac t Referred To Contact Diagnoses Right sided sciatica Spinal stenosis of lumbar region, unspecified whether neurogenic claudication present Ede Richard EMPLOYEE COUNSELOR-GERIATRIC NURSE [address] [phone] Referral ID Status Reason Start Date Expiration Date V isits Requested Visits Authorized [id number] Pending Review 05/01/2024 05/26/2025 1 1 Instructions * Patient Instructions - Yoli Romero MD - 06/27/2018 11:41 AM EST Make an appointment for PT for sciatica and back pain Stretch and do exercises EVERY DAY in this encounter* Patient Instructions - Jose ManuelEde, EVELINA-GERIATRIC NURSE - 08/29/2018 10:13 AM EST Formatting of this note may be different from the original. Problem List Items Addressed This Visit Chronic pain syndrome (Chronic) Patient is functional with continuation of chronic pain meds. Appropriate to continue. Encouraged to use meds only when needed to minimize tolerance and maximize effect when truly needed. Relevant Medications hydroCODone-acetaminophen 10-325 MG Tab tablet Cigarette nicotine dependence without complication (Chronic) We [...] Knee pain Relevant Medications hydroCODone-acetaminophen 10-325 MG Tab tablet Low back pain Relevant Medications hydroCODone-acetaminophen 10-325 MG Tab tablet Spinal stenosis of lumbar region Relevant Medications gabapentin 300 MG Cap capsule hydroCODone-acetaminophen 10-325 MG Tab tablet Encounter for long-term opiate analgesic use - Primary Other Visit Diagnoses Right sided sciatica Relevant Medications gabapentin 300 MG Cap capsule Please keep in mind that all narcotic pain meds can cause unsteady gait,falls, dizziness, sedation.Narcotic medications may be habit-forming and should be [...] to be sure these products do not containalcohol. Never take these medications in larger amounts, [...] withdrawal symptoms. Ask your doctor how to avoidwithdrawal symptoms when you stop using them. Controlled substances can be left off at the appropriate boxes at the following locations: A. [place] [facility] [employer] B. [facility] C. [facility] Department [facility] D. [facility] [facility] [address] [employer]. websites for drop boxes include -----https://www.[facility], [place].gov, but easier to use is -----http:rxdrugdropbox.org because you can look for drop sites by ZIP Code and a map is presented in this encounter* Patient Instructions* Ede Richard, EMPLOYEE COUNSELOR-GERIATRIC NURSE - 10/24/2018 11:15 AM EDT Problem List Items Addressed This Visit Chronic pain syndrome (Chronic) Patient is functional with continuation of chronic pain meds. Appropriate to continue. Encouraged to use meds only when needed to minimize tolerance and maximize effect when truly needed. Cigarette nicotine dependence without complication (Chronic) We [...] lack of nourishment and oxygen. Knee pain Low back pain Spasm Spinal stenosis of lumbar region Encounter for long-term opiate analgesic use - Primary Other Visit Diagnoses Right sided sciatica Please keep in mind that all narcotic pain meds can cause unsteady gait,falls, dizziness, sedation.Narcotic medications may be habit-forming and should be [...] to be sure these products do not containalcohol. Never take these medications in larger amounts, [...] withdrawal symptoms. Ask your doctor how to avoidwithdrawal symptoms when you stop using them. Controlled substances can be left off at the appropriate boxes at the following locations: A. [facility] B. [facility] C. [facility] D. [facility] [address] [facility] [address] [facility]. . websites for drop boxes include -----https://www.[facility] [place].gov, but easier to use is -----http:rxdrugdropbox.org because you can look for drop sites by ZIP Code and a map is presented documented in this encounter* Patient Instructions* Ede Richard APRN-CNP - 12/12/2018 10:00 AM EDT Problem List Items Addressed This Visit Chronic pain syndrome (Chronic) Cigarette nicotine dependence without complication (Chronic) We [...] lack of nourishment and oxygen. Knee pain Low back pain Spasm - Primary Spinal stenosis of lumbar region Primary osteoarthritis of right hip Sciatica of right side Encounter for long-term opiate analgesic use Please keep in mind that all narcotic pain meds can cause unsteady gait,falls, dizziness, sedation.Narcotic medications may be habit-forming and should be [...] to be sure these products do not containalcohol. Never take these medications in larger amounts, [...] withdrawal symptoms. Ask your doctor how to avoidwithdrawal symptoms when you stop using them. Controlled substances can be left off at the appropriate boxes at the following locations: A. [facility] B. [facility] C. [facility] D. [facility] [address] [facility] [address] [facility]. . websites for drop boxes include -----https://www.[facility] [place].gov, but easier to use is -----http:rxdrugdropbox.org because you can look for drop sites by ZIP Code and a map is presented documented in this encounter* Patient Instructions* Ede Richard APRN-CNP - 01/09/2019 10:00 AM EDT Problem List Items Addressed This Visit Chronic pain syndrome (Chronic) Patient is functional with continuation of chronic pain meds. Appropriate to continue. Encouraged to use meds only when needed to minimize tolerance and maximize effect when truly needed. Relevant Medications hydroCODone-acetaminophen 10-325 MG Tab tablet Cigarette nicotine dependence without complication - Primary (Chronic) We discussed the concept of smoking [...] Knee pain Relevant Medications hydroCODone-acetaminophen 10-325 MG Tab tablet Low back pain Relevant Medications hydroCODone-acetaminophen 10-325 MG Tab tablet Spinal stenosis of lumbar region Relevant Medications hydroCODone-acetaminophen 10-325 MG Tab tablet Encounter for long-term opiate analgesic use PLEASE NOTE: Your testing is now [...] a REMINDER to get the testing done. PLEASE MAKE SURE YOU BRING YOUR MEDICATION [...] understands and agrees to proceed with plan. Please keep in mind that all narcotic pain meds can cause unsteady gait,falls, dizziness, sedation.Narcotic medications may be habit-forming and should be [...] to be sure these products do not containalcohol. Never take these medications in larger amounts, [...] withdrawal symptoms. Ask your doctor how to avoidwithdrawal symptoms when you stop using them. Controlled substances can be left off at the appropriate boxes at the following locations: A. [place] [facility] B. [facility] C. [facility] D. [facility] [address] [facility] [address] [employer]. websites for drop boxes include -----https://www.[facility] [place].gov, but easier to use is -----http:rxdrugdropbox.org because you can look for drop sites by ZIP Code and a map is presented documented in this encounter* Patient Instructions* Ede Richard APRN-CNP - 02/06/2019 9:45 AM EDT Problem List Items Addressed This Visit Chronic pain syndrome (Chronic) Relevant Medications hydroCODone-acetaminophen 10-325 MG Tab tablet Cigarette nicotine dependence without complication (Chronic) We [...] Knee pain Relevant Medications hydroCODone-acetaminophen 10-325 MG Tab tablet Low back pain Relevant Medications hydroCODone-acetaminophen 10-325 MG Tab tablet Spinal stenosis of lumbar region Relevant Medications hydroCODone-acetaminophen 10-325 MG Tab tablet traMADol 50 MG Tab tablet Encounter for long-term opiate analgesic use Other chronic pain - Primary Patient is functional with continuation of chronic pain meds. Appropriate to continue. Encouraged to use meds only when needed to minimize tolerance and maximize effect when truly needed. Other Visit Diagnoses Right sided sciatica Relevant Medications traMADol 50 MG Tab tablet Please keep in mind that all narcotic pain meds can cause unsteady gait,falls, dizziness, sedation.Narcotic medications may be habit-forming and should be [...] to be sure these products do not containalcohol. Never take these medications in larger amounts, [...] withdrawal symptoms. Ask your doctor how to avoidwithdrawal symptoms when you stop using them. Controlled substances can be left off at the appropriate boxes at the following locations: A. [facility] B. [facility] C. [facility] D. [facility] [address] [facility] [address] [employer]. websites for drop boxes include -----https://www.[facility] [place].gov, but easier to use is -----http:rxdrugdropbox.org because you can look for drop sites by ZIP Code and a map is presented documented in this encounter* Patient Instructions* Ede Richard APRN-CNP - 03/06/2019 9:45 AM EDT Problem List Items Addressed This Visit Chronic pain syndrome (Chronic) Cigarette nicotine dependence without complication - Primary (Chronic) We discussed the concept of smoking [...] lack of nourishment and oxygen. Knee pain Low back pain Spinal stenosis of lumbar region Primary osteoarthritis of right hip Sciatica of right side Encounter for long-term opiate analgesic use PLEASE NOTE: Your testing is now [...] a REMINDER to get the testing done. PLEASE MAKE SURE YOU BRING YOUR MEDICATION [...] to proceed with plan. documented in this encounter* Patient Instructions* Yoli Romero MD - 06/26/2019 9:30 AM EST Use an arthritis strength tylenol (650mg) with each norco to maximize pain control/comfort. Roll on BioFreeze or spray analgesic to back of knee documented in this encounter*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 WHO ARE OR HAVE BEEN ENROLLED IN A CHEMICAL DEPENDENCY/SUBSTANCEABUSE PROGRAM, SOME INFORMATION MAY BE OMITTED. This clinical summary was aggregated from multiple sources. Caution should be exercised in using it in the provision of clinical care. This summary normalizes information from multiple sources, and as a consequence, information in this document may materially change the coding, format and clinical context of patient data. In addition, data may be omitted in some cases. CLINICAL DECISIONS SHOULD BE BASED ON THE PRIMARY CLINICAL RECORDS. [facility] [employer] [facility]. provides no warranty or guarantee of the accuracy or completeness of information in this document.
== END 2025-04-06 14:22 | disposition home or self-care (01) ==
LOC: LAB 14:22
PROVIDERS: PCP Nurse Practitioner Family; Visit Provider Nurse Practitioner Family
DX: E03.9 Hypothyroidism, unspecified (principal)
CPT/HCPCS: 36415; 84436; 84443; 84481